=== PATIENT | male | born 1965 | race Caucasian/White ===

== ENCOUNTER 2019-12-18 10:29 | Outpatient (REF) | payer MEDICARE, MEDICAID, SELFPAY ==
--- NOTE | 2019-12-18 11:06 | XR_ITS ---
EXAMINATION: XR PELVIS CLINICAL INFORMATION: M25.559 - Pain in unspecified hip COMPARISON: CT pelvis 01/12/2017 TECHNIQUE: AP view of the pelvis. FINDINGS: There is subtle heterogeneous attenuation suspected subchondral femoral heads, superior left and superior medial right. Finding may represent underlying avascular necrosis. MRI would be helpful for further evaluation. There is no hip joint narrowing or erosive changes. The SI joints and pubis are unremarkable. The bony pelvis is unremarkable. There is some linear vascular calcification overlying the lower right lumbar spine. Bowel gas unremarkable. XR/XR pelvis 1-2V IMPRESSION: 1. Subtle heterogeneous attenuation subchondral femoral heads which could represent underlying avascular necrosis. MRI hips may be helpful for further evaluation. 2. No hip joint narrowing or erosive change.
== END 2019-12-18 10:30 | disposition home or self-care (01) ==
LOC: HO.XRAY 10:29
PROVIDERS: PCP Internal Medicine; Referring Provider Internal Medicine; Visit Provider Orthopaedic Surgery
DX: M25.552 Pain in left hip (principal)
CPT/HCPCS: 72170; 99212

== ENCOUNTER 2019-12-22 08:23 | Outpatient (REF) | payer MEDICARE, MEDICAID, SELFPAY ==
--- NOTE | 2019-12-22 | US_ITS ---
EXAMINATION: US ABDOMEN COMPLETE CLINICAL INFORMATION: Fatty liver. Elevated liver function tests. Liver fibrosis.. COMPARISON: Previous ultrasound most recent October 2018 CT the abdomen and pelvis December 2016 TECHNIQUE: Real-time imaging of the abdominal viscera. FINDINGS: PANCREAS: The head and body the pancreas are normal. The tail is not well visualized due to bowel gas. ABDOMINAL AORTA: Not well visualized due to bowel gas INFERIOR VENA CAVA: L not well visualized due to bowel gas LIVER: Liver echotexture is increased. No focal liver lesion is seen. The liver is normal in size and shape. There is no biliary duct dilatation. GALLBLADDER: Normal. The gallbladder is physiologically distended without evidence of stones, sludge, polyps, wall thickening or pericholecystic fluid. COMMON BILE DUCT: Normal in caliber measuring 0.3 cm in diameter. RIGHT KIDNEY: There is a 1.7 x 1.3 x 1.4 cm cyst in the lower pole. No hydronephrosis. No renal calculi. The kidney measures 12.5 cm in maximum dimension. LEFT KIDNEY: Normal. No hydronephrosis. No renal calculi or focal parenchymal lesions. The kidney measures 12 cm in maximum dimension. SPLEEN: Normal. The spleen measures 12.5 cm in maximum dimension. FREE FLUID: None. US/US abdomen complete IMPRESSION: Echogenic liver probably representing fatty infiltration. Small right renal cyst. Limited visualization of the tail the pancreas, aorta and IVC.
== END 2019-12-22 08:24 | disposition home or self-care (01) ==
LOC: HO.US 08:23
PROVIDERS: Visit Provider Internal Medicine
DX: K76.0 Fatty (change of) liver, not elsewhere classified (principal); R79.89 Other specified abnormal findings of blood chemistry; K74.00 Hepatic fibrosis, unspecified
CPT/HCPCS: 76700

== ENCOUNTER 2020-01-01 08:50 | Outpatient (REF) | payer MEDICARE, MEDICAID, SELFPAY ==
--- NOTE | 2020-01-01 08:52 | MR_ITS ---
EXAMINATION: MR HIP WITHOUT CONTRAST, RIGHT MR HIP WITHOUT CONTRAST, LEFT CLINICAL INFORMATION: Idiopathic aseptic necrosis. COMPARISON: CT dated 01/12/2017 TECHNIQUE: Multiplanar MR imaging was obtained through both hips without contrast material on a 1.5 Radha magnet. FINDINGS: RIGHT: LABRUM/CAPSULE: A cleft of fluid signal undercuts the anterosuperior acetabular labrum as seen on image 10/20 of series 5, most consistent with a focal tear. BONES AND ARTICULAR CARTILAGE: There is partial-thickness cartilage loss and full-thickness chondral fissuring at the acetabular roof anterosuperiorly with associated subchondral cystic change and a small marginal osteophyte. Subchondral avascular necrosis of the right femoral head anterosuperiorly measures 3.5 x 2.9 cm (transverse x AP) with a rim of low signal intensity on both T1- and T2-weighted images, a separate rim of increased T2 signal, and an internal fat signal intensity. There is mild edema signal along the margins, more notable posteriorly. As seen on image 16/24 of series 7, there is a small 0.6 x 0.7 cm fissure in the articular cartilage with chronic underlying cortical irregularity. No discrete cortical breaks. No subchondral fracture lines are identified. Focal high-grade cartilage loss is present around the fovea. Additional mild chondral thinning is present at the femoral head anterosuperiorly. MUSCLES AND TENDONS: Normal. JOINT FLUID AND BURSAE: No effusion or bursitis. LIGAMENTUM TERES: Ligamentum teres is ill-defined at the foveal attachment, likely due to a chronic tear. INTRAPELVIC SOFT TISSUES: Unremarkable. LEFT: LABRUM/CAPSULE: Similar to the contralateral side, there is a cleft of fluid signal undercutting the labrum anterosuperiorly which likely corresponds to a small focal tear. BONES AND ARTICULAR CARTILAGE: There is partial-thickness chondral thinning and full-thickness fissuring at the acetabular roof anterosuperiorly with underlying subchondral cystic change and edema. Small marginal osteophytes are present at the acetabulum. Avascular necrosis at the anterosuperior aspect of the left femoral head measures 3.5 x 3.4 cm (AP x transverse) in area with the characteristic rim of low and high signal intensity as well as central fat signal. The necrotic subchondral fragment is edematous, most pronounced posteriorly. No discrete subchondral insufficiency fractures are identified. Femoral head articular cartilage appears relatively well-preserved, though mild thinning is suspected anterosuperiorly. No discrete defects are identified. MUSCLES AND TENDONS: Normal. JOINT FLUID AND BURSAE: No effusion or bursitis. LIGAMENTUM TERES: Intact. INTRAPELVIC SOFT TISSUES: No adenopathy. No focal abnormalities. 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 No significant articular cortical collapse or subchondral fracture lines. Mild osteoarthritis in both hips. Focal, full-thickness chondral fissuring and high-grade cartilage loss are evident at the right femur along the medial teofilo-foveal margin of the infarct zone. Small degenerative anterosuperior labral tears are present bilaterally.
== END 2020-01-01 08:51 | disposition home or self-care (01) ==
LOC: HO.MRI 08:50
PROVIDERS: PCP Internal Medicine; Visit Provider Orthopaedic Surgery
DX: M25.559 Pain in unspecified hip (principal); M87.00 Idiopathic aseptic necrosis of unspecified bone
CPT/HCPCS: 73721

== ENCOUNTER → 2020-01-05 13:42 | Outpatient (BNVA) | payer MEDICARE, MEDICAID, SELFPAY | PROVIDERS: Visit Provider Internal Medicine | DX: B20 Human immunodeficiency virus [HIV] disease (principal) | CPT/HCPCS: 99212 ==

== ENCOUNTER 2020-01-07 09:02 | Outpatient (REF) | payer MEDICARE, MEDICAID, SELFPAY ==
--- NOTE | 2020-01-07 09:06 | MM_ITS ---
EXAMINATION: BONE DENSITOMETRY CLINICAL INDICATION: Human immunodeficiency virus disease. COMPARISON: Baseline BD dated 09/29/2008. TECHNIQUE: Using a MD2U DXA System (software version: 13.1) manufactured by [employer], dual-energy x-ray absorptiometry was performed of the lumbar spine and left hip. The images are of good technical quality. Summary results are attached. FINDINGS: AP SPINE L1-L4: Current: BMD 1.101 g/cm2, Z-score -0.8, T-score -1.0, normal, 5.8% increase from baseline (<5% change is not significant). Baseline: BMD 1.041 g/cm2. LEFT FEMUR, NECK: Current: BMD 1.010 g/cm2, Z-score 0.3, T-score -0.5, normal. Baseline: BMD 0.973 g/cm2. LEFT FEMUR, TOTAL: Current: BMD 1.190 g/cm2, Z-score 1.0, T-score 0.6, normal, 13.2% increase from baseline (<5% change is not significant). Baseline: BMD 1.051 g/cm2. IDENTIFIED RISK FACTORS: Secondary osteoporosis. HISTORY OF FRACTURE: None listed. MEDICATIONS: Vitamin D. MM/XR DEXA axial skeleton IMPRESSION: 1. DIAGNOSIS: Normal bone density based on the lowest T-score value of -1.0 in the lumbar spine applying World Health Organization criteria. 2. 10-YEAR FRACTURE RISK PREDICTION, FRAX: Major osteoporotic fracture (clinical spine, forearm, hip or shoulder) 3.9%. Hip fracture 0.2%. 3. Treatment Recommendations: NOF guidelines recommend consideration for treatment in postmenopausal women and men age 50 and older presenting with the following: -A hip or vertebral (clinical or morphometric) fracture. -T-score less than or equal to -2.5 at the femoral neck or spine after appropriate evaluation to exclude secondary causes. -Low bone mass at the hip or spine and a 10-year fracture probability by FRAX of greater than or equal to 3% for hip fracture or greater than or equal to 20% for major osteoporotic fracture based on the [place] adapted WHO algorithm. 4. Other Recommendations: All treatment decisions require clinical judgment and consideration of individual patient factors, including patient preferences, comorbidities, previous drug use, risk factors not captured in the FRAX model (e.g. frailty, falls, vitamin D deficiency, increased bone turnover, interval significant decline in bone density) and possible under or overestimation of fracture risk by FRAX. FUTURE SCAN RECOMMENDATION: People with diagnosed cases of osteoporosis or at high risk for fracture should have regular bone mineral density tests. For patients eligible for Medicare, routine testing is allowed once every 2 years. The testing frequency can be increased to one year for patients who have rapidly progressing disease, those who are receiving or discontinuing medical therapy to restore bone mass, or have additional risk factors.
== END 2020-01-07 09:03 | disposition home or self-care (01) ==
LOC: HO.MAMMO 09:02
PROVIDERS: PCP Internal Medicine; Visit Provider Internal Medicine
DX: Z13.820 Encounter for screening for osteoporosis (principal); B20 Human immunodeficiency virus [HIV] disease; Z79.899 Other long term (current) drug therapy
CPT/HCPCS: 36415; 77080; 82105; 85610

== ENCOUNTER 2020-01-07 10:14 | Outpatient (REF) | payer MEDICARE, MEDICAID, SELFPAY ==
[2020-01-07 14:08] LABS: Prothrombin Time 12.3 SEC (10.8-13.0)
[2020-01-08 12:26] LABS: Alpha Fetoprotein 3.9 ng/mL (<6.1)
== END 2020-01-07 10:15 | disposition home or self-care (01) ==
LOC: HO.10HDL 10:14
PROVIDERS: Visit Provider Internal Medicine
DX: K76.0 Fatty (change of) liver, not elsewhere classified (principal); R79.89 Other specified abnormal findings of blood chemistry; K74.00 Hepatic fibrosis, unspecified
CPT/HCPCS: 36415; 77080; 82105; 85610

== ENCOUNTER → 2020-02-04 11:24 | Outpatient (BNVA) | payer MEDICARE, MEDICAID, SELFPAY | PROVIDERS: PCP Internal Medicine; Referring Provider Internal Medicine; Visit Provider Orthopaedic Surgery | DX: M87.051 Idiopathic aseptic necrosis of right femur (principal); M87.052 Idiopathic aseptic necrosis of left femur | CPT/HCPCS: Q3014 ==

== ENCOUNTER 2020-04-09 11:11 | Emergency (ER) | payer MEDICARE, MEDICAID, SELFPAY ==
--- NOTE | ~2020-04-09 | XR_ITS ---
EXAMINATION: XR SHOULDER, RIGHT CLINICAL INFORMATION: Status post fall COMPARISON: None TECHNIQUE: Four views of the right shoulder. FINDINGS: There is no acute visible fracture or dislocation. Mild degenerative changes of the right glenohumeral and acromioclavicular joint with joint space narrowing and periarticular osteophyte formation. Joint spaces and alignment are otherwise maintained. Soft tissues are unremarkable. Visualized portions of the right chest are unremarkable. XR/XR shoulder RT min 2V IMPRESSION: 1. No acute visible fracture or dislocation. 2. Mild degenerative changes of the right glenohumeral and acromioclavicular joint.
[2020-04-09 11:36] VITALS: BP 134/79; PULSE 77; RESP 18; TEMP 36.8; O2SAT 97; BMI 29.0
--- NOTE | 2020-04-09 12:24 | PC.NURSE ---
strong steady gait to result's pending room. c/o right shoulder pain, loss of ROM. no numbness or pain radiating down r arm. palpable radial pulse.
--- NOTE | 2020-04-09 12:43 | ED.FALL ---
HPI - Fall General Chief Complaint: Fall Stated Complaint: fall Time Seen by Provider: 04/09/20 12:27 Source: patient Mode of arrival: ambulatory Limitations: no limitations History of Present Illness HPI Narrative: 55-year-old male presenting to the ED after a mechanical fall where he was at his mother's house cleaning up the snow and he slipped on ice landing on his right shoulder and since then has been having pain and limited range of motion. Denies head injury or loss of consciousness. Reports he does not have any back pain or any pain anywhere else. Denies being on any blood thinners. complaint: fall Onset (ago): day(s) (Yesterday) Fall from: standing Fall witnessed: no Place fall occurred: other (Mothers house) Loss of consciousness: none Prolonged down time: no Symptoms prior to fall: none Context: tripped/slipped Location of injury: other (Right shoulder) Severity: moderate Severity scale (1-10): 5 Quality: aching Associated symptoms (after fall): denies Related Data Home Medications Medication Instructions Recorded Confirmed aspirin 81 mg tablet,delayed 81 mg PO DAILY 01/05/20 01/05/20 release cholecalciferol (vitamin D3) 125 125 mcg PO TID cap 01/05/20 01/05/20 mcg (5,000 unit) capsule coenzyme Q10 100 mg capsule 100 mg PO TID cap 01/05/20 01/05/20 elviteg 150 mg-cob 150 mg-emtricit 1 tab PO DAILY 01/05/20 01/05/20 200 mg-tenofo alafenam 10 mg tablet terazosin 5 mg capsule 5 mg PO DAILY 01/05/20 01/05/20 ursodiol 300 mg capsule 300 mg PO .COMPLEX cap 01/05/20 01/05/20 valacyclovir 500 mg tablet mg PO 01/05/20 01/05/20 Previous Rx's Medication Instructions Recorded bupropion HCl 200 mg tablet,12 hr 200 mg PO QAM #90 tab 01/13/20 sustained-release terazosin 5 mg capsule 5 mg PO BEDTIME 90 Days #180 cap 01/15/20 metoprolol succinate 25 mg 25 mg PO DAILY #90 tab 01/18/20 tablet,extended release 24 hr zolpidem 10 mg tablet 10 mg PO BEDTIME PRN #90 tab 01/26/20 lidocaine [Lidoderm] 1 patch TOPICAL DAILY #15 ea 04/09/20 tramadol 50 mg PO BID PRN #14 tab 04/09/20 Allergies Allergy/AdvReac Type Severity Reaction Status Date / Time Sulfa (Sulfonamide Allergy Unknown UNKNOWN Verified 04/09/20 11:36 Antibiotics) [SULFA (SULFONAMIDE ANTIBIOTICS)] Review of Systems Review of Systems: Constitutional : No changes in activity, No lethargy, No recent prior head injury, No agitation, No increased fussiness ENT/Mouth : No Ear Pain, No Nasal discharge/drainage Eyes: No Eye Pain, No Swelling, No Redness, No Foreign Body, No Vision Changes Cardiovascular : No Chest Pain, No SOB Respiratory : No Cough Gastrointestinal : No Nausea, No Vomiting, No abdominal Pain Genitourinary : No Dysuria, No Urinary Frequency, No Urinary Incontinence, No Urgency, No Flank Pain Musculoskeletal : + joint pain, No neck stiffness, No back pain/injury Skin : No lacerations Neuro : No unsteady gait, No Paresthesias, No Loss of Consciousness, No altered mental status, No Headache Yes all other systems are reviewed and are negative [facility] Past Medical History Attestation statement: The following information was validated with the patient. Medical History Avascular necrosis Avascular necrosis of bones of both hips Hip pain HIV (human immunodeficiency virus infection) HIV (human immunodeficiency virus infection) Hypertension Surgical History H/O heart artery stent History of appendectomy Hx of tonsillectomy Family History Family History Father No problems noted. Mother No problems noted. Social History Social History Alcohol intake: never Smoking Status: Never smoker Smoked in Last 30 Days: No Use of substances other than those prescribed or required for medical reasons: No Advance Directives: No Advance Directives Information Provided: No Current occupational status: disabled Current occupation: Right Handed Physical Exam Vital Signs: Vital Signs: Last Vital Signs Temp 98.2 F 04/09/20 11:36 Pulse 77 04/09/20 11:36 Resp 18 04/09/20 11:36 BP 134/79 04/09/20 11:36 Pulse Ox 97 04/09/20 11:36 Body Mass Index 29.0 Vital signs have been reviewed as normal and appeared to be correct. Blood pressure normal. Heart rate normal. Respiration rate normal. Temperature normal. Oxygen saturation normal. Appearance: Alert. Oriented X3. No acute distress. Head: Normal external exam. Normocephalic. Atraumatic. Able to rotate head bilaterally. Eyes: PERRLA. EOMI. No nystagmus noted. Conjunctiva and sclera normal. Eyelids normal. Corneal reflex normal. ENT: EAC normal. TM's Normal. Hearing normal. Pharynx normal. Uvula midline. tongue midline. Moist mucous membranes. No trismus noted. No drooling noted. No muffled voice noted. No nystagmus noted. Neck: Normal inspection. Neck supple. FROM. No adenopathy. Trachea midline. Thyroid Normal. No meningeal signs. No neck mass noted. CVS: Normal heart rate and rhythm. Heart sound normal. No murmurs noted. Pulses normal throughout. Respiratory: No respiratory distress. Painless inspiration. Breath sounds normal. No wheezes/rales/rhonchi noted. Chest nontender. No accessory muscle usage noted or decreased air movement noted. Abdomen: Soft and nontender. Bowel sounds normal in all 4 quadrants. No distention noted. No organomegaly noted. No visible injury noted. Back: No CVA tenderness. Full range of motion noted. Nontender. No lesion/abrasions/lacerations/ecchymosis/fluctuance/signs of infection. Skin: Skin warm and dry. Normal skin color. Normal skin turgor. No rashes/lesions/lacerations noted. Extremities: Patient with tenderness to palpation to right shoulder at the AC joint and at the acromion process with limited range of motion external rotation c abduction. Otherwise the rest of the range of motion is within normal limits. No obvious deformities noted. No rashes/lesion/induration/fluctuance/ecchymosis/lacerations or signs of infection noted. Otherwise all other Extremities exhibit normal range of motion and nontender. Able to shrug shoulders bilaterally and keep up against resistance. Neuro: Oriented X 3. No motor deficit. No sensory deficit. Reflexes normal. Moving all extremities. No focal motor deficits. Cranial nerves II-XI intact bilaterally. Facial strength normal. Normal cognition. Speech normal. Gait normal. Strength 5/5 throughout. No pronator drift. No tremor noted. No fasciculations noted. No rigidity noted. Muscle tone normal throughout. Course Course Course Narrative: 55-year-old male presenting to the ED with right shoulder pain after he slipped and fell on ice. Denied head injury or loss of consciousness. On exam has limited range of motion. No obvious deformities noted. No signs of infection noted. X-ray of right shoulder negative for any acute processes. Will place in a sling and give orthopedic follow-up. Instructed patient to return if symptoms persist for longer than 1-2 weeks or to follow-up with orthopedics in 1-2 weeks. Patient understands agrees with this plan. Procedures Orthopedic Splinting/Casting Injury #1: Side: right Upper Extremity Injury Location: shoulder Upper Extremity Immobilizer: sling/shoulder immobilizer MDM - Fall Medical Records Attestation: I reviewed the patient's medical records. Imaging Data Right shoulder: Attestation: I personally reviewed and interpreted this imaging study as follows: Radiologist's impression: FINDINGS: There is no acute visible fracture or dislocation. Mild degenerative changes of the right glenohumeral and acromioclavicular joint with joint space narrowing and periarticular osteophyte formation. Joint spaces and alignment are otherwise maintained. Soft tissues are unremarkable. Visualized portions of the right chest are unremarkable. XR/XR shoulder RT min 2V IMPRESSION: 1. No acute visible fracture or dislocation. 2. Mild degenerative changes of the right glenohumeral and acromioclavicular joint. Discharge Plan Discharge Clinical Impression: Sprain of right shoulder, Fall from slipping Patient Disposition: Home, Self-Care Instructions: How to Use a Sling (ED), Shoulder Sprain (ED) Prescriptions: New tramadol 50 mg tablet 50 mg PO BID PRN (Reason: pain) Qty: 14 RF: 0 lidocaine [Lidoderm] 5 % adhesive patch,medicated 1 patch topical DAILY Qty: 15 RF: 0 No Action bupropion HCl 200 mg tablet sustained-release 12 hr 200 mg PO QAM Qty: 90 RF: 1 terazosin 5 mg capsule 5 mg PO BEDTIME 90 Days Qty: 180 RF: 2 metoprolol succinate 25 mg tablet extended release 24 hr 25 mg PO DAILY Qty: 90 RF: 1 zolpidem 10 mg tablet 10 mg PO BEDTIME PRN (Reason: insomnia) Qty: 90 RF: 0 ursodiol 300 mg capsule 300 mg PO .COMPLEX RF: 0 valacyclovir 500 mg tablet PO RF: 0 Genvoya [phone] mg tablet 1 tab PO DAILY RF: 0 terazosin 5 mg capsule 5 mg PO DAILY RF: 0 cholecalciferol (vitamin D3) 125 mcg (5,000 unit) capsule 125 mcg PO TID RF: 0 aspirin [Adult Aspirin Regimen] 81 mg tablet,delayed release (DR/EC) 81 mg PO DAILY RF: 0 coenzyme Q10 [CoQ-10] 100 mg capsule 100 mg PO TID RF: 0 Referrals: Alejandro Mast MD [Physician] - 2 weeks Print Language: Sammarinese
[2020-04-09] MEDS: traMADoL HCL 50 MG TABLET PO (13:06)
== END 2020-04-09 13:14 | disposition home or self-care (01) ==
PROVIDERS: Emergency Provider Emergency Medicine Emergency Medical Services; PCP Internal Medicine
DX: S43.401A Unspecified sprain of right shoulder joint, initial encounter (principal); W00.0XXA Fall on same level due to ice and snow, initial encounter; Y93.H1 Activity, digging, shoveling and raking; Y92.014 Private driveway to single-family (private) house as the place of occurrence of the external cause; Y99.9 Unspecified external cause status
CPT/HCPCS: 73030; 99283

== ENCOUNTER → 2020-05-09 13:09 | Outpatient (BNVA) | payer MEDICARE, MEDICAID, SELFPAY | PROVIDERS: PCP Internal Medicine; Visit Provider Orthopaedic Surgery | DX: M75.51 Bursitis of right shoulder (principal); M75.52 Bursitis of left shoulder | CPT/HCPCS: 99212; J1100 ==

== ENCOUNTER 2020-06-17 14:04 | Outpatient (REF) | payer MEDICARE, MEDICAID, SELFPAY ==
[2020-06-17 14:27] LABS: Hematocrit 49.5 % (42-52); Hemoglobin 17.3 g/dl (14.0-18.0); Mean Corpuscular HGB Conc 34.9 g/dl (31.0-36.0); Mean Corpuscular Hemoglobin 33.1 pg (27.0-33.0); Mean Corpuscular Volume 94.8 fL (80-98); Mean Platelet Volume 10.6 fL (9.4-12.4); Platelet Count 159 X10*3/uL (160-400); Red Blood Count 5.22 X10*6/uL (4.60-5.80); Red Cell Distribution Width 11.8 % (11.0-16.0); White Blood Count 6.9 X10*3/uL (4.8-10.8)
[2020-06-17 15:01] LABS: Alanine Aminotransferase 53 U/L (0-40); Albumin Level 4.4 g/dL (3.5-5.0); Alkaline Phosphatase 67 U/L (39-117); Anion Gap 14 (12-20); Aspartate Amino Transferase 41 U/L (5-37); Bilirubin Direct < 0.2 mg/dL (0.0-0.5); Bilirubin Total 0.6 mg/dL (0.0-1.0); Blood Urea Nitrogen 27 mg/dL (9-16); Calcium 9.4 mg/dL (8.4-10.2); Carbon Dioxide 27 mmol/L (22-29); Chloride 103 mmol/L (96-108); Estimated Glomerular Filt Rate 57; Glucose Random 90 mg/dL (60-115); Potassium 4.7 mmol/L (3.3-5.1); Sodium 139 mmol/L (135-145)
[2020-06-17 15:23] LABS: Syphilis Screen Nonreactive (Nonreactive)
[2020-06-20 08:03] LABS: ~Hepatitis C Antibody Nonreactive (Nonreactive)
[2020-06-20 13:17] LABS: Absolute CD3 Count 1986 cells/uL (840-3060); Absolute CD4 Count 1227 cells/uL (490-1740); Absolute CD8 Count 769 cells/uL (180-1170); Absolute Lymphocytes 2424 cells/uL (850-3900); Percent CD3 Cells 82 % (57-85); Percent CD4 Cells 51 % (30-61); Percent CD8 Cells 32 % (12-42)
[2020-06-21 12:27] LABS: HIV RNA PCR Qn Copies 32 copies/mL (NOT DETECTED); HIV RNA PCR Qn Log Copies 1.51 (NOT DETECTED)
== END 2020-06-17 14:05 | disposition home or self-care (01) ==
LOC: HO.LAB 14:04
PROVIDERS: PCP Internal Medicine; Visit Provider Internal Medicine
DX: B20 Human immunodeficiency virus [HIV] disease (principal)
CPT/HCPCS: 36415; 80048; 80076; 85027; 86359; 86360; 86780; 86803; 87536

== ENCOUNTER 2020-06-23 13:32 | Outpatient (REF) | payer MEDICARE, MEDICAID, SELFPAY ==
--- NOTE | ~2020-06-23 | MR_ITS ---
EXAMINATION: MRI SHOULDER WITHOUT CONTRAST, LEFT CLINICAL INFORMATION: Bursitis. Patient reports bilateral shoulder pain for years, fell in March with increased pain. COMPARISON: None. TECHNIQUE: MRI scanning is performed using a standard protocol on a high-field strength 1.5 Radha magnet. FINDINGS: ROTATOR CUFF: There is a delaminating-type full-thickness insertional tear of the supraspinatus tendon. The bursal side of the tendon is retracted approximately 2.4 cm. The articular side of the tendon is retracted approximately 3 cm. The tear likely extends to the anterior fibers of the infraspinatus tendon where there may be focal full-thickness involvement but this is not definitive. There is patchy tendinosis in the mid to distal subscapularis tendon. There is articular surface fraying and possible partial articular surface insertional tear measuring 1.4 cm transverse. The teres minor tendon is intact. There is trace edema/fluid in the subacromial-subdeltoid bursa. No muscle atrophy or fatty infiltration. BICEPS: Likely completely torn and retracted. CORACOACROMIAL ARCH: The undersurface of the acromion is minimally curved with a small anterior subacromial spur. There is moderate hypertrophic osteoarthritis of the acromioclavicular joint. LABRUM/CAPSULE: The superior labrum is moderately attenuated. The posterior labrum is irregular with free edge blunting, some attenuation, and a suspected tear at the base. There is osteophyte formation in the adjacent posterior glenoid. There is degenerative irregularity of the anteroinferior labrum. The capsular structures are unremarkable. GLENOHUMERAL JOINT/MARROW: There are patchy areas of [id number] cartilage thinning in the humeral head and mild cartilage thinning in the glenoid. There are small marginal osteophytes. MR/MR shoulder LT wo con IMPRESSION: 1. Delaminating-type full-thickness insertional tear of the supraspinatus tendon possibly involving the anterior fibers of the infraspinatus tendon. 2. Subscapularis tendinosis with articular surface fraying and possible partial articular surface insertional tear. 3. The long head of the biceps tendon is likely completely torn and retracted. 4. Superior labral attenuation which appears to be degenerative. Posterior labral degeneration and tear. Anteroinferior labral degeneration. 5. [id number] glenohumeral arthrosis.
--- NOTE | ~2020-06-23 | MR_ITS ---
EXAMINATION: MR SHOULDER WITHOUT CONTRAST, RIGHT CLINICAL INFORMATION: Bursitis of right shoulder. Patient reports bilateral shoulder pain for years, fell in March with increased pain. COMPARISON: XR right shoulder 04/09/2020 TECHNIQUE: MRI of the shoulder without contrast was performed on a high-field scanner. FINDINGS: ROTATOR CUFF: There is a massive complete or near-complete tear of the supraspinatus and infraspinatus tendons with retraction to the medial humeral head level. There may be a few intact anterior supraspinatus tendon fibers. There is a prominent insertional tear of the subscapularis tendon which is predominantly partial articular surface measuring 2.1 cm transverse. This may communicate with focal perforation of distal inferior subscapularis tendon fibers. There is associated dislocation of the long head of the biceps tendon from the bicipital groove which then extends through the subscapularis tendon to the intra-articular portion. The teres minor tendon is intact. There is a small subacromial-subdeltoid bursal effusion. There is mild edema at the supraspinatus and infraspinatus musculotendinous junctions which may be reactive for mild strains. No muscle atrophy or fatty infiltration. BICEPS: As stated above, the long head of the biceps tendon is medially dislocated from the bicipital groove and extends through the subscapularis tendon tear. There is irregularity of the contour of the tendon with mild intrasubstance signal abnormality consistent with tendinosis. CORACOACROMIAL ARCH: The undersurface of the acromion is curved with no subacromial spur. There is mild osteoarthritis of the acromioclavicular joint. There appears to be an inferior capsular perforation with some bursal fluid communicating with joint fluid. LABRUM/CAPSULE: The superior labrum is somewhat irregular in contour with mild intrasubstance signal abnormality which appears to be degenerative. There is a probable focal tear of the posterosuperior labrum with small adjacent paralabral cyst. There is degenerative irregularity of the anterior inferior labrum. The capsular structures are unremarkable. GLENOHUMERAL JOINT/MARROW: The humeral head is elevated and nearly abuts the acromion process. There are patchy areas of mild cartilage irregularity and thinning in the glenohumeral joint. There are small marginal osteophytes. There is a small joint effusion with mild debris or synovitis in the axillary recess. MR/MR shoulder RT wo con IMPRESSION: 1. Massive complete or near-complete tear of the supraspinatus and infraspinatus tendons with retraction to the medial humeral head level. 2. Prominent insertional tear of the subscapularis tendon which is predominantly articular-sided but appears to perforate the bursal surface distally and inferiorly. The long head of the biceps tendon is medially dislocated from the bicipital groove and extends through the subscapularis tendon tear. There is biceps tendinosis. 3. Mild osteoarthritis of the acromioclavicular joint with inferior capsular perforation. 4. Superior labral degeneration. Focal posterosuperior labral tear with small adjacent paralabral cyst. Anteroinferior labral degeneration. 5. Elevated humeral head. Mild glenohumeral arthrosis. Small joint effusion with mild debris or synovitis in the axillary recess.
== END 2020-06-23 13:33 | disposition home or self-care (01) ==
LOC: HO.MRI 13:32
PROVIDERS: Visit Provider Internal Medicine
DX: M75.51 Bursitis of right shoulder (principal); M75.52 Bursitis of left shoulder
CPT/HCPCS: 73221

== ENCOUNTER 2020-06-30 09:07 | Outpatient (REF) | payer MEDICARE, MEDICAID, SELFPAY ==
--- NOTE | ~2020-06-30 | XR_ITS ---
EXAMINATION: Single view of the right shoulder and 4 views of the left shoulder. CLINICAL INFORMATION: Pain COMPARISON: MRI of 06/23/2020 and plain film studies of 04/09/2020 and report without images 08/13/2012 . TECHNIQUE: Single AP view of the right shoulder and 4 views of the left shoulder. FINDINGS: Single view of the right shoulder does not demonstrate any evidence of acute fracture or dislocation. No widening of the acromioclavicular joint. No soft tissue swelling overlying the acromioclavicular joint. No widening of the coracoclavicular space. There is mild spurring about the glenohumeral joint without significant narrowing. 4 mm calcific density seen overlying the humeral head which may represent bone island or calcification of previous injury. There is no evidence of acute fracture or dislocation of the left shoulder. The left humeral head appears to be elevated and possibly impinging on the acromium. Small calcification about the inferior glenoid is seen which may be related to calcified labral tear. There is some degenerative narrowing of the acromioclavicular joint with mild spurring. No widening of the coracoclavicular space. No calcific tendinitis seen. XR/XR shoulder LT 1V IMPRESSION: Mild degenerative change of the right shoulder as described with question of bone island in the humeral head versus calcification extrinsic to the humeral head. Elevation of the humeral head in the glenohumeral joint which may have a component of impingement with the acromium. Mild degenerative change as described.
--- NOTE | ~2020-06-30 | XR_ITS ---
EXAMINATION: Single view of the right shoulder and 4 views of the left shoulder. CLINICAL INFORMATION: Pain COMPARISON: MRI of 06/23/2020 and plain film studies of 04/09/2020 and report without images 08/13/2012 . TECHNIQUE: Single AP view of the right shoulder and 4 views of the left shoulder. FINDINGS: Single view of the right shoulder does not demonstrate any evidence of acute fracture or dislocation. No widening of the acromioclavicular joint. No soft tissue swelling overlying the acromioclavicular joint. No widening of the coracoclavicular space. There is mild spurring about the glenohumeral joint without significant narrowing. 4 mm calcific density seen overlying the humeral head which may represent bone island or calcification of previous injury. There is no evidence of acute fracture or dislocation of the left shoulder. The left humeral head appears to be elevated and possibly impinging on the acromium. Small calcification about the inferior glenoid is seen which may be related to calcified labral tear. There is some degenerative narrowing of the acromioclavicular joint with mild spurring. No widening of the coracoclavicular space. No calcific tendinitis seen. XR/XR shoulder LT min 2V IMPRESSION: Mild degenerative change of the right shoulder as described with question of bone island in the humeral head versus calcification extrinsic to the humeral head. Elevation of the humeral head in the glenohumeral joint which may have a component of impingement with the acromium. Mild degenerative change as described.
--- NOTE | ~2020-06-30 | XR_ITS ---
EXAMINATION: Single view of the right shoulder and 4 views of the left shoulder. CLINICAL INFORMATION: Pain COMPARISON: MRI of 06/23/2020 and plain film studies of 04/09/2020 and report without images 08/13/2012 . TECHNIQUE: Single AP view of the right shoulder and 4 views of the left shoulder. FINDINGS: Single view of the right shoulder does not demonstrate any evidence of acute fracture or dislocation. No widening of the acromioclavicular joint. No soft tissue swelling overlying the acromioclavicular joint. No widening of the coracoclavicular space. There is mild spurring about the glenohumeral joint without significant narrowing. 4 mm calcific density seen overlying the humeral head which may represent bone island or calcification of previous injury. There is no evidence of acute fracture or dislocation of the left shoulder. The left humeral head appears to be elevated and possibly impinging on the acromium. Small calcification about the inferior glenoid is seen which may be related to calcified labral tear. There is some degenerative narrowing of the acromioclavicular joint with mild spurring. No widening of the coracoclavicular space. No calcific tendinitis seen. XR/XR shoulder RT 1V IMPRESSION: Mild degenerative change of the right shoulder as described with question of bone island in the humeral head versus calcification extrinsic to the humeral head. Elevation of the humeral head in the glenohumeral joint which may have a component of impingement with the acromium. Mild degenerative change as described.
== END 2020-06-30 09:08 | disposition home or self-care (01) ==
LOC: HO.HOSX 09:07
PROVIDERS: Visit Provider Orthopaedic Surgery
DX: M25.511 Pain in right shoulder (principal); M25.512 Pain in left shoulder; M12.811 Other specific arthropathies, not elsewhere classified, right shoulder; M12.812 Other specific arthropathies, not elsewhere classified, left shoulder; M75.101 Unspecified rotator cuff tear or rupture of right shoulder, not specified as traumatic; M75.102 Unspecified rotator cuff tear or rupture of left shoulder, not specified as traumatic; B20 Human immunodeficiency virus [HIV] disease; I10 Essential (primary) hypertension; Z88.2 Allergy status to sulfonamides
CPT/HCPCS: 73020; 73030; 99212

== ENCOUNTER → 2020-07-05 09:56 | Outpatient (BNVA) | payer MEDICARE, MEDICAID, SELFPAY | PROVIDERS: Visit Provider Internal Medicine | DX: Z21 Asymptomatic human immunodeficiency virus [HIV] infection status (principal) | CPT/HCPCS: 99212 ==

== ENCOUNTER → 2020-07-14 13:23 | Outpatient (BNVA) | payer MEDICARE, MEDICAID, SELFPAY | PROVIDERS: PCP Internal Medicine; Visit Provider Internal Medicine | DX: Z01.810 Encounter for preprocedural cardiovascular examination (principal); I25.10 Atherosclerotic heart disease of native coronary artery without angina pectoris; I48.0 Paroxysmal atrial fibrillation; Z79.899 Other long term (current) drug therapy | CPT/HCPCS: 93005; 99202 ==

== ENCOUNTER 2020-07-26 08:09 | Day surgery (SDC) | payer MEDICARE, MEDICAID, SELFPAY ==
[2020-07-08 13:43] VITALS: BMI 29.3
--- NOTE | 2020-07-18 14:50 | HO.ANESPROP2 ---
Documented by User: Adry Gonzalezney 07/18/20 14:55 HPI - Anesthesia Eval Consult details Narrative: 55yo M for Right Shoulder Arthroscopy,superior capsular reconstruction Cardiac cleared at low to intermediate risk afib - asa, metoprolol PMFSH Active Problems Active Problems: All Active Problems (Updated 07/14/20 @ 14:43 by Ricardo Gonzalez MD) Paroxysmal atrial fibrillation (Acute) Atherosclerotic cardiovascular disease (Acute) Preoperative cardiovascular examination (Acute) Insomnia (Acute) Medicare annual wellness visit, initial (Acute) Hypercholesterolemia (Acute) Hearing loss (Acute) Coronary artery disease (Acute) Rotator cuff tear arthropathy of both shoulders (Acute) Bilateral shoulder bursitis (Acute) Avascular necrosis of bones of both hips (Acute) HIV (human immunodeficiency virus infection) (Acute) Avascular necrosis (Acute) Hip pain (Acute) Past Medical History Medical History (Updated 07/14/20 @ 14:43 by Ricardo Gonzalez MD) Anxiety and depression Atherosclerotic cardiovascular disease Avascular necrosis Avascular necrosis of bones of both hips Bilateral shoulder bursitis COVID-19 vaccine series completed Fatty liver Hip pain HIV (human immunodeficiency virus infection) HIV (human immunodeficiency virus infection) Hypertension Paroxysmal atrial fibrillation Family History Family History Father Myocardial infarct Mother No problems noted. Brother Myocardial infarct Paternal Grandfather Myocardial infarct Maternal Grandfather Myocardial infarct Surgical History Surgical History H/O heart artery stent History of appendectomy History of elbow surgery Hx of tonsillectomy Social History Social History Alcohol intake: never Patient Tobacco Use Status: Never used Tobacco Use of substances other than those prescribed or required for medical reasons: No Have you been hit, kicked, punched, or otherwise hurt by someone within the past year? 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 Allergies Allergy/AdvReac Type Severity Reaction Status Date / Time Sulfa (Sulfonamide Allergy Unknown UNKNOWN Verified 07/14/20 13:42 Antibiotics) [SULFA (SULFONAMIDE ANTIBIOTICS)] Home Medications Medication Instructions Recorded Confirmed Last Taken Type aspirin 81 mg tablet,delayed 81 mg PO DAILY 01/05/20 07/08/20 Unknown History release coenzyme Q10 100 mg capsule 300 mg PO QAM cap 01/05/20 07/14/20 Unknown History ursodiol 300 mg capsule 900 mg PO QAM cap 01/05/20 07/14/20 Unknown History valacyclovir 500 mg tablet 500 mg PO QAM tab 06/17/20 07/14/20 Unknown History bupropion HCl 200 mg PO QPM 07/08/20 07/14/20 Unknown History cholecalciferol (vitamin D3) 125 mcg PO QPM 07/08/20 07/14/20 Unknown History metoprolol succinate 25 mg PO QPM 07/08/20 07/14/20 Unknown History terazosin 5 mg PO QAM 07/08/20 07/14/20 Unknown History ursodiol 600 mg PO QPM 07/08/20 07/14/20 Unknown History Exam Exam Date and Time: July 18, 2020 1450 Height,Weight and Vital Signs: Height 5 ft 6 in Weight 82.554 kg Pertinent Lab Results Pertinent Lab Results: Laboratory Tests 06/17/20 06/17/20 14:12 14:12 WBC 6.9 Hgb 17.3 Hct 49.5 Plt Count 159 L Sodium 139 Potassium 4.7 Chloride 103 Carbon Dioxide 27 BUN 27 H Creatinine 1.31 Narrative Narrative: Per 06/2020 cardiac note: He has a history of acute coronary syndrome in 2000, treated by right coronary artery stenting. At that time no significant disease in other coronary arteries. Last stress test is from 2018. At that time, no ischemia noted; there was fixed basal inferolateral defect, old infarct versus diaphragmatic attenuation. Prior to this, he had another stress test in 2015 which also showed no ischemia. One further stress test prior to that in 2013 also had no ischemia. With regard to EKG some EKGs in the past had shown atrial fibrillation but others had shown sinus rhythm. Last study from 2019 described to have atrial fibrillation at 52/Min. Last echocardiogram from 2019 shows LVEF of 65-70% and no significant valvular abnormalities. Overall, he has stable coronary disease and possibly persistent atrial fibrillation. EKG 06/2020 atrial fibrillation at 66/Min; cannot exclude old anterior infarct or inferior infarct. Per description from outside cardiology note, this looks similar. Assessment and Plan Assessment Anesthesia Assessment: Chart Reviewed Documented by User: Jan Palmer MD 07/26/20 09:23 [facility] Past Medical History Medical History (Updated 07/14/20 @ 14:43 by Ricardo Gonzalez MD) Anxiety and depression Atherosclerotic cardiovascular disease Avascular necrosis Avascular necrosis of bones of both hips Bilateral shoulder bursitis COVID-19 vaccine series completed Fatty liver Hip pain HIV (human immunodeficiency virus infection) HIV (human immunodeficiency virus infection) Hypertension Paroxysmal atrial fibrillation Family History Family History Father Myocardial infarct Mother No problems noted. Brother Myocardial infarct Paternal Grandfather Myocardial infarct Maternal Grandfather Myocardial infarct Surgical History Surgical History H/O heart artery stent History of appendectomy History of elbow surgery Hx of tonsillectomy Social History Social History Alcohol intake: never Patient Tobacco Use Status: Never used Tobacco Use of substances other than those prescribed or required for medical reasons: No Have you been hit, kicked, punched, or otherwise hurt by someone within the past year? 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 Allergies Allergy/AdvReac Type Severity Reaction Status Date / Time Sulfa (Sulfonamide Allergy Unknown UNKNOWN Verified 07/14/20 13:42 Antibiotics) [SULFA (SULFONAMIDE ANTIBIOTICS)] Home Medications Medication Instructions Recorded Confirmed Last Taken Type aspirin 81 mg tablet,delayed 81 mg PO DAILY 01/05/20 07/08/20 Unknown History release coenzyme Q10 100 mg capsule 300 mg PO QAM cap 01/05/20 07/14/20 Unknown History ursodiol 300 mg capsule 900 mg PO QAM cap 01/05/20 07/14/20 Unknown History valacyclovir 500 mg tablet 500 mg PO QAM tab 06/17/20 07/14/20 Unknown History bupropion HCl 200 mg PO QPM 07/08/20 07/14/20 Unknown History cholecalciferol (vitamin D3) 125 mcg PO QPM 07/08/20 07/14/20 Unknown History metoprolol succinate 25 mg PO QPM 07/08/20 07/14/20 Unknown History terazosin 5 mg PO QAM 07/08/20 07/14/20 Unknown History ursodiol 600 mg PO QPM 07/08/20 07/14/20 Unknown History Assessment and Plan Assessment Anesthesia Assessment: Anesthesia Plan Discussed and Chart Reviewed Final Anesthetic Review NPO: Yes ASA Class: III Final Preanesthetic Review: No Changes in Pt Med Stat, Meds/Allgs Chart Reviewed, Consent Obtained/Reviewed and Anes Risks/Benef Reviewed Patient Risk: High Procedure Risk: Intermediate Anesthetic Plan Anesthetic Plan: GA and Regional Block Disposition: Standard PACU
[2020-07-26] VITALS (10 sets, daily range): BP systolic 114–148; BP diastolic 68–95; PULSE 48–80; RESP 16–18; TEMP 36.2–36.9; O2SAT 91–97
[2020-07-26] MEDS: Lactated Ringers 1,000 ML 100 ML IVCONT (09:00)
--- NOTE | 2020-07-26 09:14 | PC.NURSE ---
PATIENT IS A-FIB WITH HR LOW 30'S TO 48. PATIENT WITH A HO PAROXYSYMAL A FIB. PT TAKES ONLY A BABY ASA (LAST DOSE Saturday PER PT). PATIENT ASYMPTOMATIC. ANESTHESIOLOGIST AT BEDSIDE EVALUATING PATIENT.
--- NOTE | 2020-07-26 09:50 | PC.NURSE ---
DR. VERGARA STATED OKAY FOR PATIENT TO PROCEED WITH HIS PROCEDURE.
--- NOTE | 2020-07-26 13:14 | PM.OP ---
Brief Operative Note Date of Service: 07/26/20 Pre-op diagnosis: right rotator cuff tear and rtc arthropathy Post-op diagnosis: same Procedure: superior capsular reconstruction subscapularis repair Implants: Diamond and Nephew helacoil x7 and Qfix x 2 Surgeon: Zia Guzman MD Anesthesia: GETA Was an Partner Management Consultant used for this Procedure?: Yes Partner Management Consultant: Astrid Francois Estimated blood loss (mL): 25 IV fluids (mL): 1,500 Pathology: none sent Condition: stable Disposition: PACU
--- NOTE | 2020-07-27 09:46 | P.OP_ITS ---
Operative Note Operative Note Date of Service: 07/27/20 Narrative: Pre-op diagnosis: right rotator cuff tear and rtc arthropathy Post-op diagnosis: same Procedure: superior capsular reconstruction subscapularis repair Implants: Diamond and Nephew helacoil x7 and Qfix x 2 Surgeon: Zia Guzman MD Anesthesia: GETA Was an Wastewater Treatment Supervisor used for this Procedure?: Yes Wastewater Treatment Supervisor: Astrid Francois Estimated blood loss (mL): 25 IV fluids (mL): 1,500 Pathology: none sent Condition: stable Disposition: PACU Procedure in detail: Patient is brought the operating room placed in the beach chair position and all bony prominences were well padded. He was prepped and draped in standard sterile fashion and a time-out was called to identify proper site proper procedure proper surgeon. I began by making a posterolateral stab incision placed my blunt trocar atraumatically into the glenohumeral joint. I then insufflated joint established a low anterosuperior outside in portal. I began by examining the glenohumeral joint. There was a retracted rotator cuff tear with no separation between the glenohumeral joint the subacromial space. There were minimal arthritic changes in the glenohumeral joint. There was a high grade partial tear of the subscapularis. I examined the subscapularis and it wa s mobile. I tenotomized the biceps as it was almost fully torn approximately 1 cm proximal to the labral insertion. I then used a apollo to apollo the supraspinatus insertion site and then I placed 2 mini FiberTapes and 1 looped suture through the healthy ends of the supraspinatus and then while the patient was internally rotated placed 14.5 Healacoil Diamond and Nephew anchor with the suture ends attached. This was placed in the insertion site and I had excellent reconstruction of the anatomy and stable supraspinatus repair. I then entered the subacromial space and examined the rotator cuff. It was totally retracted and there was some posterior fibers that were minimally mobile but unrepairable. Therefore I removed the frayed portions of the superior labrum and burred down the glenoid to bleeding bone. I then placed 2 all suture double loaded Diamond and Nephew suture anchors into the glenoid via a Nevasier portal. These were then left in place and I turned my attention to the medial row. Three medial row anchors were placed each double loaded and then I measured the dimensions of my graft. On the back table I cut a graft leaving 5 mm anteriorly and 10 mm posteriorly I then placed my glenoid sutures through the end of the graft and my 3 medial row FiberTapes through the appropriate location in the graft. I then removed the trocar and opened up the lateral portal with a 15 blade so that I was able to shuttle in the graft. I then tied my glenoid sutures and brought the limb of each medial row down to 2 lateral row anchors and crossed the middle fibertape in a standard fashion. I had excellent compression of the graft and these lateral row anchors were placed without difficulty. I then examined the construct and placed 1 [id number] suture posteriorly toward the glenoid and then closer to the humeral head placed another and with the 2 ends of this FiberTape placed into a 3rd knotless anchor into the posterolateral aspect of the humeral head. I had excellent compression and coverage of the head with the intact graft. I took my final pictures and removed all instrumentation. Portals were closed with nylon patient was placed into a sterile dressing and an abduction sling extubated brought to recovery room stable condition there were no known complications.
== END 2020-07-26 15:50 | disposition home or self-care (01) ==
PROVIDERS: PCP Internal Medicine; Visit Provider Orthopaedic Surgery
PROC: (CPT 29805; principal; 2020-07-26 09:50)
DX: M75.101 Unspecified rotator cuff tear or rupture of right shoulder, not specified as traumatic (principal); M75.51 Bursitis of right shoulder; M12.811 Other specific arthropathies, not elsewhere classified, right shoulder; M89.8X2 Other specified disorders of bone, upper arm; M75.52 Bursitis of left shoulder; I25.10 Atherosclerotic heart disease of native coronary artery without angina pectoris; I10 Essential (primary) hypertension; Z98.61 Coronary angioplasty status; B20 Human immunodeficiency virus [HIV] disease; M87.9 Osteonecrosis, unspecified; F32.9 Major depressive disorder, single episode, unspecified; K74.60 Unspecified cirrhosis of liver; I48.0 Paroxysmal atrial fibrillation; Z79.899 Other long term (current) drug therapy; Z88.2 Allergy status to sulfonamides
CPT/HCPCS: 29999; C1713; C1762; J0171; J0690; J1100; J1170; J2250; J2405; J3010

== ENCOUNTER → 2020-08-04 13:12 | Outpatient (BNVA) | payer MEDICARE, MEDICAID, SELFPAY | PROVIDERS: Visit Provider Physician Assistant | DX: Z98.890 Other specified postprocedural states (principal) | CPT/HCPCS: 99212 ==

== ENCOUNTER 2020-09-01 13:34 | Outpatient (REF) | payer MEDICARE, MEDICAID, SELFPAY ==
--- NOTE | 2020-09-02 08:04 | MHC.AU.ANR ---
Adult Audiological Evaluation Date of Visit: 09/01/20 Reason for Appointment: Patient has been noticing a gradual decrease in his hearing since the early . He reports that he has experienced hearing difficulty in most situations/environments. Does patient feel they have a hearing loss?: Yes If Yes, Which Ear?: Both Ears Has hearing been tested previously?: No Hearing Handicap Inventory: HHIE SCORE: 14 Based on HHIE score, patient has: Mild to moderate perceived hearing handicap Ear History: Ear Deformity: None Reported Recent Ear Drainage: None Reported Recent Ear Pain: None Reported Recent Ear Infections: None Reported Ear Infections in Childhood: None Reported History of Ear Wax Buildup: None Reported Previous Ear Surgery: None Reported Bothersome Tinnitus/Ringing/Noises in Ears: None Reported Ear used on the phone: Right Ear Blocked/Full Sensation in Ear(s): None Reported History of occupational noise exposure?: No History: History: Yes Branch: [employer] Years in : 9.5 Years Medical History: Medical History: HIV+, Heart Problems (Stent surgically placed in 2000), Shoulder Surgery on 07/26/2020 Medication List: Biktarvy, Terazosin, Ursodiol, Metoprolol, Wellbutrin, Ambien, Valtrex, CoQ10, Vitamin D Otoscopy: Right Ear: Unremarkable Left Ear: Unremarkable Tympanometry: Tympanometry performed due to: To assess integrity of the middle ear system Right Ear: Normal Middle Ear System (Type A) Left Ear: Normal Middle Ear System (Type A) Hearing Evaluation: Transducer(s) Used: Insert Earphones Method: Conventional Audiometry Stimuli Used: Pure Tones Right Ear: Description of Hearing: Normal from 250-1000 Hz, sloping to moderate/moderately-severe sensorineural hearing loss Left Ear: Description of Hearing: Normal from 250-1000 Hz, sloping to moderate/moderately-severe sensorineural hearing loss Speech Recognition Threshold (SRT): Method Used: Recorded Lists Stimuli Used: Spondee Words Right Ear: 15 dBHL Left Ear: 15 dBHL Word Discrimination: Method: Recorded Lists Word Lists Used: W-22 Right Ear: 80% at 65 dBHL Left Ear: 92% at 65 dBHL Most Comfortable Level (MCL): Right Ear: 65 dBHL Left Ear: 65 dBHL QuickSIN: Tested binaurally at 60 dBHL: 2 dB SNR loss, which suggests an average level of difficulty listening in noise Recommendations: Audiological re-evaluation in one year. Discussed the possibility of hearing aids. Patient is not certain if amplification is necessary at this time, as he has a fairly quiet lifestyle. If he would like to further discuss amplification, he is welcome to schedule a hearing aid evaluation; otherwise, we will continue to monitor his hearing and discuss amplification when he is ready. Diagnosis: Primary Diagnosis: H90.3 Bilateral Sensorineural Hearing Loss Services Performed: Services Performed: Comprehensive Audiological Evaluation (CPT 63724), Tympanometry (CPT 72267) Signature: Provider: Monica Allan, CCC-A
== END 2020-09-01 13:35 | disposition home or self-care (01) ==
LOC: HO.SH 13:34
PROVIDERS: Visit Provider Internal Medicine
DX: Z46.1 Encounter for fitting and adjustment of hearing aid (principal); H90.3 Sensorineural hearing loss, bilateral
CPT/HCPCS: 92557; 92567

== ENCOUNTER → 2020-09-09 13:15 | Outpatient (BNVA) | payer MEDICARE, MEDICAID, SELFPAY | PROVIDERS: PCP Internal Medicine; Visit Provider Physician Assistant | DX: Z98.890 Other specified postprocedural states (principal) | CPT/HCPCS: 99212 ==

== ENCOUNTER 2020-12-02 12:15 | Outpatient (REF) | payer MEDICARE, MEDICAID, SELFPAY ==
[2020-12-02 12:38] LABS: MANUAL DIFF FLAG NO
[2020-12-02 13:07] LABS: Basophils Absolute Auto 0.1 X10*3/uL (0.0-0.2); Basophils Percent Auto 0.7 % (0-2); Eosinophils Absolute Auto 0.1 X10*3/uL (0.0-0.4); Eosinophils Percent Auto 1.3 % (0-4); Hematocrit 51.5 % (42-52); Hemoglobin 17.5 g/dl (14.0-18.0); Imm Gran Abs Auto 0.02 X10*3/uL (0.00-0.03); Imm Gran Pct Auto 0.3 % (0.0-0.4); Lymphocytes Absolute Auto 1.9 X10*3/uL (1.2-4.9); Mean Corpuscular Hemoglobin 32.1 pg (27.0-33.0); Mean Corpuscular Volume 94.3 fL (80-98); Mean Platelet Volume 10.6 fL (9.4-12.4); Monocytes Absolute Auto 0.6 X10*3/uL (0.1-1.2); Monocytes Percent Auto 8.2 % (2-11); Neutrophils Absolute Auto 4.1 X10*3/uL (2.0-8.3); Neutrophils Percent Auto 61.5 % (45-73); Platelet Count 171 X10*3/uL (160-400); Red Blood Count 5.46 X10*6/uL (4.60-5.80); Red Cell Distribution Width 11.9 % (11.0-16.0); White Blood Count 6.7 X10*3/uL (4.8-10.8)
[2020-12-02 13:34] LABS: Alanine Aminotransferase 40 U/L (0-40); Albumin Level 4.7 g/dL (3.5-5.0); Alkaline Phosphatase 59 U/L (39-117); Anion Gap 12 (12-20); Aspartate Amino Transferase 31 U/L (5-37); Bilirubin Total 0.6 mg/dL (0.0-1.0); Blood Urea Nitrogen 20 mg/dL (9-16); Calcium 10.1 mg/dL (8.4-10.2); Carbon Dioxide 29 mmol/L (22-29); Chloride 102 mmol/L (96-108); Cholesterol 208 mg/dL; Estimated Glomerular Filt Rate 55; Glucose Random 87 mg/dL (60-115); HDL Cholesterol 37 mg/dL; LDL Cholesterol Calculated 129 mg/dl; Potassium 4.8 mmol/L (3.3-5.1); Sodium 138 mmol/L (135-145); Total Protein 7.2 g/dL (6.5-8.0); Triglycerides 213 mg/dL
[2020-12-02 13:35] LABS: B Type Natriuretic Peptide 63 pg/mL (<100)
[2020-12-02 14:01] LABS: Free T4 (Free Thyroxine) 1.03 ng/dL (0.71-1.85); Prostate Specific Antigen Scr 0.32 ng/mL (<0.05-4.0); Thyroid Stimulating Hormone 0.98 uIU/mL (0.32-4.0)
[2020-12-02 14:05] LABS: Folate 12.6 ng/mL (> or = 4.0); Vitamin B12 574 pg/mL (200-900)
[2020-12-02 14:37] LABS: Vitamin D 25-OH Total 154.3 ng/mL (>30)
== END 2020-12-02 12:16 | disposition home or self-care (01) ==
LOC: HO.LAB 12:15
PROVIDERS: PCP Internal Medicine; Visit Provider Internal Medicine
DX: E78.00 Pure hypercholesterolemia, unspecified (principal); Z98.890 Other specified postprocedural states
CPT/HCPCS: 36415; 80053; 80061; 82306; 82607; 82746; 83880; 84153; 84439; 84443; 85025; 99212

== ENCOUNTER → 2021-01-13 11:12 | Outpatient (BNVA) | payer MEDICARE, MEDICAID, SELFPAY | PROVIDERS: PCP Internal Medicine; Visit Provider Internal Medicine | DX: Z21 Asymptomatic human immunodeficiency virus [HIV] infection status (principal) | CPT/HCPCS: 99212 ==

== ENCOUNTER 2021-04-13 07:39 | Outpatient (REF) | payer MEDICARE, MEDICAID, SELFPAY ==
--- NOTE | ~2021-04-13 | US_ITS ---
EXAMINATION: US ABDOMEN COMPLETE CLINICAL INFORMATION: Fatty liver. Elevated LFTs. Liver fibrosis. COMPARISON: Ultrasound abdomen complete 12/22/2019 and 11/20/2018. CT abdomen and pelvis 01/12/2017. TECHNIQUE: Real-time imaging of the abdominal viscera. FINDINGS: PANCREAS: Normal. ABDOMINAL AORTA: The proximal, mid, and distal segments are normal in caliber. INFERIOR VENA CAVA: Visualized portions are normal. LIVER: The liver is normal in size. The liver contour is normal. The liver is coarse in echotexture. No focal hepatic lesion. There is no intrahepatic biliary duct dilatation seen. GALLBLADDER: Normal. The gallbladder is physiologically distended without evidence of stones, sludge, polyps, wall thickening or pericholecystic fluid. COMMON BILE DUCT: Normal in caliber measuring 0.3 cm in diameter. RIGHT KIDNEY: There is anechoic cyst lower pole measuring 1.6 x 1.5 x 1.2 cm. No hydronephrosis or renal calculi. The kidney measures 13.2 cm in maximum dimension. LEFT KIDNEY: There is anechoic cyst in midpole laterally measuring 0.7 x 0.5 x 0.6 cm. No hydronephrosis or renal calculi. The kidney measures 11.4 cm in maximum dimension. SPLEEN: There are 2 small splenule is noted measuring 0.7 x 0.7 x 0.9 cm and 0.9 x 1.1 x 1.2 cm. The spleen measures 12.9 cm in maximum dimension. FREE FLUID: None. US/US abdomen complete IMPRESSION: Coarse echogenic liver without focal lesion. Unremarkable gallbladder. Bilateral renal cysts. Two small splenules. The spleen is otherwise unremarkable.
== END 2021-04-13 07:40 | disposition home or self-care (01) ==
LOC: HO.US 07:39
PROVIDERS: PCP Internal Medicine; Visit Provider Internal Medicine
DX: K76.0 Fatty (change of) liver, not elsewhere classified (principal); R79.89 Other specified abnormal findings of blood chemistry; K74.00 Hepatic fibrosis, unspecified
CPT/HCPCS: 76700

== ENCOUNTER → 2021-04-27 12:45 | Outpatient (BNVA) | payer MEDICARE, MEDICAID, SELFPAY | PROVIDERS: PCP Internal Medicine | DX: R39.15 Urgency of urination (principal); R35.0 Frequency of micturition; I48.0 Paroxysmal atrial fibrillation; I10 Essential (primary) hypertension; B20 Human immunodeficiency virus [HIV] disease; F41.8 Other specified anxiety disorders; Z88.2 Allergy status to sulfonamides | CPT/HCPCS: 51798; 99202 ==

== ENCOUNTER → 2022-01-04 09:03 | Outpatient (BNVA) | payer MEDICARE, MEDICAID, SELFPAY | PROVIDERS: PCP Internal Medicine; Visit Provider Surgery | DX: K64.4 Residual hemorrhoidal skin tags (principal); K64.8 Other hemorrhoids | CPT/HCPCS: 46600; 99202 ==

== ENCOUNTER 2022-03-07 06:22 | Day surgery (SDC) | payer MEDICARE, MEDICAID, SELFPAY ==
--- NOTE | 2022-03-06 11:49 | P.CONAN_ITS ---
Documented by User: Adry Campos NP 03/06/22 11:55 HPI - Anesthesia Eval Consult details Narrative: 56yo M for Colonoscopy PAF, no anticoag Stable at 10/2021 cardiac office visit with 6 month routine f/u [facility] Active Problems Active Problems: All Active Problems (Updated 01/04/22 @ 09:58 by Vladimir Harding MD) Internal and external hemorrhoids without complication (Acute) COVID-19 virus infection (Acute) Urinary frequency (Acute) Otitis media (Acute) Fever (Acute) S/P right rotator cuff repair (Acute) S/P shoulder surgery (Acute) Paroxysmal atrial fibrillation (Acute) Atherosclerotic cardiovascular disease (Acute) Preoperative cardiovascular examination (Acute) Insomnia (Acute) Medicare annual wellness visit, initial (Acute) Hypercholesterolemia (Acute) Hearing loss (Acute) Coronary artery disease (Acute) Rotator cuff tear arthropathy of both shoulders (Acute) Bilateral shoulder bursitis (Acute) Avascular necrosis of bones of both hips (Acute) HIV (human immunodeficiency virus infection) (Acute) Avascular necrosis (Acute) Hip pain (Acute) Past Medical History Medical History Anxiety and depression Arrhythmia Atherosclerotic cardiovascular disease Avascular necrosis Avascular necrosis of bones of both hips Bilateral shoulder bursitis Bradyarrhythmia Bradycardia COVID-19 vaccine series completed Fatty liver FHx: atrial fibrillation Hip pain HIV (human immunodeficiency virus infection) HIV (human immunodeficiency virus infection) Hx of atrial fibrillation without current medication Hypertension Internal and external hemorrhoids without complication Myocardial infarction Paroxysmal atrial fibrillation Urinary frequency Family History Family History Father Myocardial infarct Mother No problems noted. Brother Myocardial infarct Paternal Grandfather Myocardial infarct Maternal Grandfather Myocardial infarct Surgical History Surgical History H/O heart artery stent History of appendectomy History of elbow surgery History of rotator cuff surgery Hx of colonoscopy Hx of shoulder surgery Hx of tonsillectomy Social History Social History Housing: Apartment Alcohol intake: never Patient Tobacco Use Status: Never used Tobacco e-Cigarette/Vaping Use: Never Used Second Hand Smoke Exposure: No Are you DNR?: No Advance Directives: No Advance Directives Information Provided: Yes Nutrition Risks: No Nutritional Risk Current occupational status: disabled Current occupation: Right Handed Meds Allergies Allergy/AdvReac Type Severity Reaction Status Date / Time Sulfa (Sulfonamide Allergy Unknown UNKNOWN Verified 01/04/22 09:27 Antibiotics) [SULFA (SULFONAMIDE ANTIBIOTICS)] Home Medications Medication Instructions Recorded Confirmed Last Taken Type aspirin 81 mg tablet,delayed 81 mg PO DAILY 01/05/20 03/07/22 03/06/22 History release (Adult Aspirin Regimen) coenzyme Q10 100 mg capsule 300 mg PO QAM 01/05/20 03/07/22 03/06/22 History (CoQ-10) ursodiol 300 mg capsule 900 mg PO QAM 01/05/20 03/07/22 03/06/22 History cholecalciferol (vitamin D3) 125 125 mcg PO QPM 07/08/20 03/07/22 03/06/22 Hist ory mcg (5,000 unit) capsule ursodiol 300 mg capsule 600 mg PO QPM 07/08/20 03/07/22 03/06/22 History doravirine 100 mg tablet (Pifeltro) 100 mg PO DAILY 04/27/21 03/07/22 03/06/22 History Exam Exam Date and Time: March 06, 2022 1149 Narrative Narrative: EKG 10/2021 per Cardiac Office Note afib with controlled ventricular response of 60bpm. LAD and prior inferior wall infarct. No signif changes from previous ECHO 01/2022 Nml LV chamber size. Mild LVH. Nml regional wall motion. Nml LV systolic function. LVEF 60-65%. Unhable to assess LV diastolic function d/t afib Mild dilated LA Trace to mild TR. PASP not elevated Assessment and Plan Assessment Anesthesia Assessment: Chart Reviewed Documented by User: Nenita Peter MD 03/07/22 07:20 [facility] Past Medical History Medical History Anxiety and depression Arrhythmia Atherosclerotic cardiovascular disease Avascular necrosis Avascular necrosis of bones of both hips Bilateral shoulder bursitis Bradyarrhythmia Bradycardia COVID-19 vaccine series completed Fatty liver FHx: atrial fibrillation Hip pain HIV (human immunodeficiency virus infection) HIV (human immunodeficiency virus infection) Hx of atrial fibrillation without current medication Hypertension Internal and external hemorrhoids without complication Myocardial infarction Paroxysmal atrial fibrillation Urinary frequency Functional capacity: independent ambulation Family History Family History Father Myocardial infarct Mother No problems noted. Brother Myocardial infarct Paternal Grandfather Myocardial infarct Maternal Grandfather Myocardial infarct Family history of problems with anesthesia: No Surgical History Surgical History H/O heart artery stent History of appendectomy History of elbow surgery History of rotator cuff surgery Hx of colonoscopy Hx of shoulder surgery Hx of tonsillectomy History of Problems with Anesthesia: No Social History Social History Housing: Apartment Alcohol intake: never Patient Tobacco Use Status: Never used Tobacco e-Cigarette/Vaping Use: Never Used Second Hand Smoke Exposure: No Are you DNR?: No Advance Directives: No Advance Directives Information Provided: Yes Nutrition Risks: No Nutritional Risk Current occupational status: disabled Current occupation: Right Handed Meds Allergies Allergy/AdvReac Type Severity Reaction Status Date / Time Sulfa (Sulfonamide Allergy Unknown UNKNOWN Verified 01/04/22 09:27 Antibiotics) [SULFA (SULFONAMIDE ANTIBIOTICS)] Home Medications Medication Instructions Recorded Confirmed Last Taken Type aspirin 81 mg tablet,delayed 81 mg PO DAILY 01/05/20 03/07/22 03/06/22 History release (Adult Aspirin Regimen) coenzyme Q10 100 mg capsule 300 mg PO QAM 01/05/20 03/07/22 03/06/22 History (CoQ-10) ursodiol 300 mg capsule 900 mg PO QAM 01/05/20 03/07/22 03/06/22 History cholecalciferol (vitamin D3) 125 125 mcg PO QPM 07/08/20 03/07/22 03/06/22 History mcg (5,000 unit) capsule ursodiol 300 mg capsule 600 mg PO QPM 07/08/20 03/07/22 03/06/22 History doravirine 100 mg tablet (Pifeltro) 100 mg PO DAILY 04/27/21 03/07/22 03/06/22 History Exam Airway Mallampati Class: II TM Dist: >3cm Neck ROM: Full Heart: RRR Lungs: CTA Assessment and Plan Final Anesthetic Review Family History of Problems with Anesthesia: No History of Problems with Anesthesia: No ASA Class: II Final Preanesthetic Review: No Changes in Pt Med Stat, Meds/Allgs Chart Reviewed, Consent Obtained/Reviewed and Anes Risks/Benef Reviewed Patient Risk: Low Procedure Risk: Low Anesthetic Plan Anesthetic Plan: MAC: Disposition: Standard PACU
[2022-03-07 06:00] VITALS: BMI 27.0
[2022-03-07 06:25] VITALS: BP 122/83; PULSE 57; RESP 18; TEMP 36.1; O2SAT 97
[2022-03-07] MEDS: Lactated Ringers 1,000 ML 100 ML IVCONT (06:59)
--- NOTE | 2022-03-07 07:27 | PC.NURSE ---
PT STS NORMALLY PULSE LOW. LOW 30S AND 40S
[2022-03-07 08:32] VITALS: BP 105/71; PULSE 65; RESP 16; TEMP 36.8; O2SAT 93
--- NOTE | 2022-03-07 08:33 | PM.OP ---
Brief Operative Note Date of Service: 03/07/22 Pre-op diagnosis: Screening Post-op diagnosis: other (Mild diverticulsois, small internal hemorrhoids) Procedure: Colonoscopy to the cecum Surgeon: Peterson Couch Anesthesia: MAC Was an Maintenance Worker House Trailer used for this Procedure?: No Estimated blood loss (mL): 0 Pathology: none sent Condition: stable Disposition: PACU
[2022-03-07 08:47] VITALS: BP 120/80; PULSE 65; RESP 16; TEMP 36.6; O2SAT 98
--- NOTE | 2022-03-07 08:55 | OP_ITS ---
SURGEON: Peterson Couch MD INDICATIONS: The patient presents for evaluation of personal history of tubular adenoma of the colon and colorectal cancer screening. Full consent has been obtained from him for this, including risks of bleeding and perforation. PREOPERATIVE DIAGNOSIS: Colorectal cancer screening. POSTOPERATIVE DIAGNOSIS: PROCEDURE PERFORMED: Colonoscopy to the cecum. ESTIMATED BLOOD LOSS: COMPLICATIONS: ANESTHESIA: Monitored anesthesia care. ASSISTANTS: SPECIMENS: POSTOPERATIVE DIAGNOSES: Colorectal cancer screening, sigmoid diverticulosis, small internal hemorrhoids. DESCRIPTION OF PROCEDURE: The patient was placed in the left lateral decubitus position. The digital rectal exam revealed no abnormalities. There was no evidence of any significant hemorrhoids nor other perianal disease. The Olympus video pediatric colonoscope was entered into the rectum and advanced easily to the cecum. Once in the cecum, I did identify a normal-appearing cecal pouch with appendiceal orifice and a normal-appearing ileocecal valve. The entire cecum and ileocecal valve appeared normal. The scope was then slowly withdrawn assessing all mucosal surfaces carefully. Preparation was excellent. I did not visualize any sign of polyps, colitis, nor angiodysplasia. There was a mild amount of sigmoid diverticulosis. In the rectum, scope was retroflexed visualizing some small internal hemorrhoids, but no other pathology. The rectal mucosa appeared normal. The scope was straightened and withdrawn from the patient. He tolerated the procedure well and was returned to the recovery area in stable condition. IMPRESSION: 1. Small internal hemorrhoids. 2. Mild sigmoid diverticulosis. PLAN: I would recommend a repeat colonoscopy in 5 years for further screening. He will see me in the Fall for a followup of his underlying fatty liver. He was advised to resume his aspirin today. He will otherwise see me on a p.r.n. basis. MD NATALIA Peralta/KAIDEN / [phone] KARLA
--- NOTE | 2022-03-07 09:19 | HO.POSTANES ---
Post Anesthesia Evaluation Post Anesthesia Evaluation Vital Signs: Vital Signs Temp Pulse Resp BP Pulse Ox O2 Del Method O2 Flow Rate 03/07/22 08:32 98.3 F 65 16 105/71 93 Room Air, Nasal Cannula 4 03/07/22 06:25 96.9 F 57 18 122/83 97 Room Air Anesthesia: Monitored Mental Status: Awake Nausea/Vomiting: None Hydration: Adequate Anesthesia-Related Issues: No Anes. Related Issues
== END 2022-03-07 09:25 | disposition home or self-care (01) ==
PROVIDERS: PCP Internal Medicine; Visit Provider Internal Medicine
PROC: 0DJD8ZZ Inspection of Lower Intestinal Tract, Via Natural or Artificial Opening Endoscopic (ICD-10-PCS; CPT 45378; principal; 2022-03-07 07:30)
DX: Z12.11 Encounter for screening for malignant neoplasm of colon (principal); Z86.010 Personal history of colon polyps; K57.30 Diverticulosis of large intestine without perforation or abscess without bleeding; K64.8 Other hemorrhoids; K76.0 Fatty (change of) liver, not elsewhere classified; K74.00 Hepatic fibrosis, unspecified; B20 Human immunodeficiency virus [HIV] disease; I48.91 Unspecified atrial fibrillation; I25.10 Atherosclerotic heart disease of native coronary artery without angina pectoris; I25.2 Old myocardial infarction; Z98.61 Coronary angioplasty status; Z79.82 Long term (current) use of aspirin; Z79.899 Other long term (current) drug therapy
CPT/HCPCS: G0105

== ENCOUNTER → 2022-04-30 13:10 | Outpatient (BNVA) | payer MEDICARE, MEDICAID, SELFPAY | PROVIDERS: PCP Internal Medicine; Visit Provider Nurse Practitioner Family | DX: R35.0 Frequency of micturition (principal); R39.15 Urgency of urination | CPT/HCPCS: 51798; 99212 ==

== ENCOUNTER → 2022-05-17 14:00 | Outpatient (BNVA) | payer MEDICARE, MEDICAID, SELFPAY | PROVIDERS: PCP Internal Medicine; Visit Provider Orthopaedic Surgery | DX: M75.102 Unspecified rotator cuff tear or rupture of left shoulder, not specified as traumatic (principal); M12.812 Other specific arthropathies, not elsewhere classified, left shoulder; Z21 Asymptomatic human immunodeficiency virus [HIV] infection status | CPT/HCPCS: 99212 ==

== ENCOUNTER 2022-05-24 14:48 | Outpatient (REF) | payer MEDICARE, MEDICAID, SELFPAY ==
--- NOTE | ~2022-05-24 | XR_ITS ---
EXAMINATION: XR PELVIS CLINICAL INFORMATION: Pain in unspecified hip COMPARISON: Pelvis radiograph 12/18/2019, MRI bilateral hips 01/01/2020 TECHNIQUE: AP view of the pelvis. FINDINGS: The previously seen subtle lytic/sclerotic areas in the superior femoral heads is slightly more apparent on today's study but essentially unchanged. No collapse of the cortex is seen. No acute fractures. The pelvis otherwise appears normal. XR/XR pelvis 1-2V IMPRESSION: Subtle changes in the superior femoral heads as described above. Findings are consistent with bilateral chronic avascular necrosis without meaningful interval change when compared to the prior study.
== END 2022-05-24 14:49 | disposition home or self-care (01) ==
LOC: HO.HOSX 14:48
PROVIDERS: Visit Provider Orthopaedic Surgery
DX: M70.62 Trochanteric bursitis, left hip (principal)
CPT/HCPCS: 20610; 72170; 99212; J1100

== ENCOUNTER 2023-02-05 08:24 | Outpatient (REF) | payer MEDICARE, MEDICAID, SELFPAY ==
[2023-02-05 08:53] LABS: MANUAL DIFF FLAG NO
[2023-02-05 09:20] LABS: Basophils Absolute Auto 0.1 X10*3/uL (0.0-0.2); Basophils Percent Auto 0.9 % (0-2); Eosinophils Absolute Auto 0.1 X10*3/uL (0.0-0.4); Eosinophils Percent Auto 2.1 % (0-4); Hemoglobin 18.9 g/dl (14.0-18.0); Imm Gran Abs Auto 0.05 X10*3/uL (0.00-0.03); Imm Gran Pct Auto 0.8 % (0.0-0.4); Lymphocytes Absolute Auto 2.4 X10*3/uL (1.2-4.9); Lymphocytes Percent Auto 36.4 % (20-40); Mean Corpuscular HGB Conc 33.5 g/dl (31.0-36.0); Mean Corpuscular Hemoglobin 32.4 pg (27.0-33.0); Mean Corpuscular Volume 96.6 fL (80.0-98.0); Mean Platelet Volume 11.1 fL (9.4-12.4); Monocytes Absolute Auto 0.7 X10*3/uL (0.1-1.2); Monocytes Percent Auto 10.2 % (2-11); Neutrophils Absolute Auto 3.3 x10*3/uL (2.0-8.3); Neutrophils Percent Auto 49.6 % (45-73); Platelet Count 162 X10*3/uL (160-400); Red Blood Count 5.84 X10*6/uL (4.60-5.80); Red Cell Distribution Width 12.1 % (11.0-16.0); White Blood Count 6.6 X10*3/uL (4.8-10.8)
[2023-02-05 09:21] LABS: Hematocrit 56.4 % (42.0-52.0)
[2023-02-05 09:25] LABS: Prothrombin Time 12.2 SEC (11.1-13.3)
[2023-02-05 09:37] LABS: Alanine Aminotransferase 38 U/L (0-40); Albumin Level 4.5 g/dL (3.5-5.0); Alkaline Phosphatase 46 U/L (39-117); Aspartate Amino Transferase 33 U/L (5-37); Bilirubin Direct 0.2 mg/dL (0.0-0.5); Bilirubin Total 0.7 mg/dL (0.0-1.0); Total Protein 7.4 g/dL (6.5-8.0)
[2023-02-06 11:29] LABS: Alpha Fetoprotein 4.8 ng/mL (<6.1)
[2023-02-14 19:09] LABS: FIB-ALT 33 U/L (9-46); FIB-Alpha-2-Macroglobulin 302 mg/dL (106-279); FIB-Apolipoprotein A1 143 mg/dL (94-176); FIB-GGT 22 U/L (3-85); FIB-Haptoglobin 42 mg/dL (43-212); FIB-Total Bilirubin 0.7 mg/dL (0.2-1.2); Liver Fibrosis Score 0.64; Liver Fibrosis Stage F3; Nec Inflam Act Grade A0-A1; Nec Inflam Act Score 0.25
== END 2023-02-05 08:25 | disposition home or self-care (01) ==
LOC: HO.LAB 08:24
PROVIDERS: PCP Internal Medicine; Visit Provider Internal Medicine
DX: K76.0 Fatty (change of) liver, not elsewhere classified (principal); K74.00 Hepatic fibrosis, unspecified
CPT/HCPCS: 36415; 80076; 81596; 82105; 85025; 85610

== ENCOUNTER 2023-05-01 09:13 | Outpatient (AMB) | payer MEDICARE, MEDICAID, SELFPAY ==
--- NOTE | 2023-05-01 09:36 | MHC.OFFVIS ---
Intake Intake Visit Reasons: 1y/PVR Intake Note: Patient is present for follow up frequency and urgency Urology Medications: terazosin Blood Thinner: aspirin PVR: 79ml's Supply Cataloguer Required: No Accompanied by: Self / Same As Patient Allergies Sulfa (Sulfonamide Antibiotics) [SULFA (SULFONAMIDE ANTIBIOTICS)] Allergy (Unknown, Verified 05/01/23 11:09) UNKNOWN Medication List - Last Reconciled 05/01/23 by BRITTNI Medina- aspirin (Adult Aspirin Regimen) 81 mg PO DAILY somfiazhl-lflitmjw-furqwzv ala 50-200-25 mg (Biktarvy) 1 tab PO DAILY bupropion HCl 200 mg PO QPM 90 days cholecalciferol (vitamin D3) 125 mcg PO QPM coenzyme Q10 (CoQ-10) 300 mg PO QAM doravirine (Pifeltro) 100 mg PO DAILY isosorbide mononitrate ER 30 mg PO DAILY metoprolol succinate ER 12.5 mg (1/2 x 25 mg) PO DAILY 90 days pitavastatin calcium 4 mg PO DAILY terazosin 5 mg PO BEDTIME 90 days ursodiol 600 mg PO QPM ursodiol 900 mg PO QAM valacyclovir 500 mg PO BID 90 days zolpidem 10 mg PO BEDTIME 90 days HPI HPI Comments History of Present Illness Details Kip is a pleasant 58-year-old male patient of Dr. Ellison. He has a past medical history of AFib, myocardial infarction, bradyarrhythmia, hemorrhoids, fatty liver, atherosclerotic cardiovascular disease, anxiety, depression, bilateral shoulder bursitis, HIV, avascular necrosis, and hypertension. He presents to the office today for follow-up of his overactive bladder. When asked patient reports to be doing and feeling well. When asked he reports terazosin 5 mg at bedtime to be working extremely well for his urinary frequency and urgency symptoms. In office urinalysis today within normal limits. PVR 79 mLs. When asked patient denies urinary urgency, urinary frequency, incontinence, dysuria, foul-smelling urine, change in urinary stream, hematuria, flank pain, fever and or chills. Patient denies any urological issues or concerns at this time. He denies changes to his urinary habits. He offers no concerns or complaints. PSAs are as follows: 11/14 0.3, 09/16 0.5. Patient reports he gets his PSA drawn with his PCP as well as with his HIV provider through [facility]. He otherwise offers no other issues or concerns at this time. [facility] Medical History Hx of atrial fibrillation without current medication FHx: atrial fibrillation Arrhythmia Myocardial infarction Bradycardia Bradyarrhythmia Internal and external hemorrhoids without complication Urinary frequency Paroxysmal atrial fibrillation Atherosclerotic cardiovascular disease Fatty liver Anxiety and depression COVID-19 vaccine series completed Bilateral shoulder bursitis Avascular necrosis of bones of both hips HIV (human immunodeficiency virus infection) Avascular necrosis Hip pain Hypertension HIV (human immunodeficiency virus infection) Surgical History Hx of colonoscopy Hx of shoulder surgery History of rotator cuff surgery History of elbow surgery H/O heart artery stent Hx of tonsillectomy History of appendectomy Family History Father Myocardial infarct Mother Skin cancer Brother Myocardial infarct Paternal Grandfather Myocardial infarct Maternal Grandfather Myocardial infarct Social History Housing: Apartment Alcohol intake: never Patient Tobacco Use Status: Never used Tobacco e-Cigarette/Vaping Use: Never Used Second Hand Smoke Exposure: No Current occupational status: disabled Current occupation: Right Handed Cognitive needs: No Hearing needs: No Vision needs: No Review of Systems Const All systems reviewed & are unremarkable except as noted in HPI and below Reports no additional complaints Eyes Reports no additional complaints ENT Reports no additional complaints Card Reports no additional complaints Resp Reports no additional complaints GI Details: Patient reports follows with GI Dr. Couch. Reports as per HPI Musc Reports no additional complaints Neuro Reports no additional complaints Psych Reports no additional complaints Endo Reports no additional complaints Alex/Lymph Reports no additional complaints Aller/Immun Reports no additional complaints Physical Exam Const General: cooperative, healthy appearing, comfortable, no acute distress, well developed, alert and awake Orientation/consciousness: patient oriented x3 Limitations: no limitations HEENT Head: Yes normal to inspection, Yes normocephalic and Yes atraumatic Ears: hearing grossly normal bilaterally Eyes General: appearance normal, both eyes and all related structures Neck Neck: Yes normal visual inspection and Yes trachea midline Chest Chest palpation & inspection: normal inspection of the chest Resp Effort & Inspection: normal respiratory effort and able to speak in complete sentences Cardio Rate: regular rate GI Inspection: Yes normal to inspection Rectal Exam - Male: Yes deferred General: Yes no CVA tenderness Back/Spine/Pelvis Back: no CVA tenderness Skin General skin exam: no rashes or lesions noted Neuro General: patient oriented x3 Extrem General: Yes normal to inspection Psych Appearance: grossly normal and well kempt Mental Status: mental status grossly normal Speech and movement: Normal speech and movement present and Clear speech present Affect: normal affect Attitude: cooperative Thought process: Normal thought process present Thought content: Normal thought content present Insight: Good insight present (Psych) Judgement: Good judgement present (Psych) Office Procedures Post Void Residual Post Residual Void Post Void Residual (PVR): 79 [id number] Void Residual by ultrasound Results AMB Urinalysis, Automated UA Leukoctes 0 Андрей/uL Last Edit by [employer] on 05/01/23 10:08 UA Nitrite Negative Last Edit by [employer] on 05/01/23 10:08 UA Urobilinogen 0.2 mg/dL Last Edit by [employer] on 05/01/23 10:08 UA Protein 0 mg/dL Last Edit by [employer] on 05/01/23 10:08 UA pH 6.0 Last Edit by [employer] on 05/01/23 10:08 UA Blood 0 Edilberto/uL Last Edit by [employer] on 05/01/23 10:08 UA Specific [place] 1.005 Last Edit by [employer] on 05/01/23 10:08 UA Ketone Negative Last Edit by [employer] on 05/01/23 10:08 UA Bilirubin 0 mg/dL Last Edit by [employer] on 05/01/23 10:08 UA Glucose 0 mg/dL Last Edit by [employer] on 05/01/23 10:08 Results Reviewed Results Reviewed: Laboratory Last Values Urine pH (Auto) 6.0 05/01/23 09:41 Specific [place] (Auto) 1.005 05/01/23 09:41 Urine Protein (Auto) 0 mg/dL 05/01/23 09:41 Glucose (UA)(Auto) 0 mg/dL 05/01/23 09:41 Urine Ketones (Auto) Negative 05/01/23 09:41 Urine Blood (Auto) 0 Edilberto/uL 05/01/23 09:41 Urine Nitrite (Auto) Negative 05/01/23 09:41 Urine Bilirubin (Auto) 0 mg/dL 05/01/23 09:41 Urine Urobilinogen (Auto) 0.2 mg/dL 05/01/23 09:41 Leukocyte Esterase (Auto) 0 Андрей/uL 05/01/23 09:41 Assessment & Plan Assessment & Plan (1) BPH (benign prostatic hyperplasia): Code(s): N40.0 - Benign prostatic hyperplasia without lower urinary tract symptoms (2) Urinary frequency: Code(s): R35.0 - Frequency of micturition (3) Urinary urgency: Code(s): R39.15 - Urgency of urination Plan In office urinalysis results reviewed with the patient today; as noted above. PVR 0 mL. Patient denies any bothersome urinary issues or concerns. He is happy with his current voiding parameters. Most recent PSA results reviewed with the patient today; as noted above. Continue terazosin 5 mg daily; refill provided. PSA in one year. Follow-up in 1 year with PSA to be completed prior; or sooner with any issues, concerns, and or questions. Orders: Orders AMB Urinalysis Automated Today Z13.9 - Encounter for screening, unspecified AMB Post Void Residual by ultrasound Today R39.15 - Urgency of urination Prostate Specific Antigen Today N40.0 - Benign prostatic hyperplasia without lower urinary tract symptoms Medications: Refilled terazosin 5 mg PO BEDTIME 90 caps 3RF 90 days Patient Instructions: The patient had an opportunity to ask questions regarding the treatment plan. All questions were answered. Physical exam, labs, and imaging were discussed and reviewed in detail. As well as risks, benefits, and discussion of treatment choices. No major barriers to understanding were identified. The patient expressed understanding and agreement with the above treatment plan. The patient was made aware they should contact our office by phone for worsening of their current condition, the appearance of new symptoms, or with any questions or concerns. Compliance is encouraged with any medications and follow up testing that is ordered. It is a privilege to be allowed the opportunity to participate in? your urological care.? Again, if you have any questions or concerns If you have any questions or concerns please do not hesitate to contact me. The office is [phone]. This note is constructed using voice recognition software. While every effort has been made to ensure accuracy knitter mechanic errors may have been included. Yours sincerely, BRITTNI Medina-ANNE-MARIE Coding Level of Care Code Est Pt Level 3 (96834) Diagnoses BPH (benign prostatic hyperplasia) N40.0 Urinary frequency R35.0 Urinary urgency R39.15 CPT Codes Post Residual Void - PVR CPT Code: 04114-Qdwr Void Residual by ultrasound ([id number])
== END 2023-05-01 10:36 | disposition home or self-care (01) ==
PROVIDERS: Visit Provider Nurse Practitioner Family
DX: N40.0 Benign prostatic hyperplasia without lower urinary tract symptoms (principal); R35.0 Frequency of micturition; R39.15 Urgency of urination
CPT/HCPCS: 99213

== ENCOUNTER → 2023-05-01 09:13 | Outpatient (BNVA) | payer MEDICARE, MEDICAID, SELFPAY | PROVIDERS: Visit Provider Nurse Practitioner Family | DX: N40.1 Benign prostatic hyperplasia with lower urinary tract symptoms (principal); R35.0 Frequency of micturition; R39.15 Urgency of urination | CPT/HCPCS: 51798; 81003; 99212 ==

== ENCOUNTER 2023-05-08 07:44 | Outpatient (REF) | payer MEDICARE, MEDICAID, SELFPAY ==
--- NOTE | ~2023-05-08 | US_ITS ---
EXAMINATION: US COMPLETE ABDOMEN WITH LIVER ELASTOGRAPHY CLINICAL INFORMATION: Fatty liver. Liver fibrosis. COMPARISON: Ultrasound imaging from 12/22/2019 and 04/13/2021. TECHNIQUE: Real-time imaging of the abdominal viscera. Noninvasive ultrasound liver fibrosis assessment is performed using [employer]idelia ElastPQ point quantification shear wave elastography (2D-SWE) with a C5-2 MHz transducer. Multiple elastography samples are obtained. FINDINGS: PANCREAS: Normal. ABDOMINAL AORTA: The proximal, middle, and distal aortic segments are normal in caliber. INFERIOR VENA CAVA: Visualized portions are normal. LIVER: Liver has normal size and contour. The parenchyma is hyperechoic and mildly heterogeneous, which suggests regions of relative fat sparing. No evidence of focal lesion or intrahepatic ductal dilatation. The right lobe measures approximately 13.5 cm in length. The left lobe measures 10.8 cm in length. Portal flow is normal. Shear wave liver elastography median stiffness is 1.61 m/s (reference: normal median stiffness is 1.3 m/s or less). IQR/median stiffness to assess sampling precision is 0.11 (reference: good quality data set is IQR/median stiffness of 0.15 or less). GALLBLADDER: Normal. The gallbladder is physiologically distended without evidence of stones, sludge, polyps, wall thickening or pericholecystic fluid. COMMON BILE DUCT: Normal in caliber measuring 0.5 cm in diameter. RIGHT KIDNEY: The kidney measures 11.6 cm in length. No nephrolithiasis or hydronephrosis. 2.1 cm simple cyst of the lower pole. No imaging follow-up is recommended for a simple cyst. LEFT KIDNEY: 11.3 cm in length. No nephrolithiasis or hydronephrosis. A few small simple cysts are detected. No renal imaging follow-up is recommended for simple cysts. SPLEEN: Normal. The spleen measures 11.4 cm in maximum dimension. FREE FLUID: None. US/US abdomen comp w elastography IMPRESSION: * Liver is hyperechoic, as seen on prior ultrasound imaging exams, and findings are suggestive of steatosis. There is no evidence of liver mass. * The shear wave liver elastography reveals a median stiffness of 1.61 m/s (reference: normal median stiffness is 1.3 m/s or less). In the absence of other known clinical signs, this rules out compensated advanced chronic liver disease. REFERENCE: Society of Radiologists in Ultrasound Liver Stiffness Thresholds (2020): LIVER STIFFNESS THRESHOLDS: *Liver Stiffness equal or less than 1.3 m/s: High probability of being normal. *Liver Stiffness less than 1.7 m/s: In the absence of other known clinical signs, rules out compensated advanced chronic liver disease. *Liver Stiffness 1.7-2.1 m/s: Suggestive of compensated advanced chronic liver disease but need further test for confirmation. *Liver Stiffness over 2.1 m/s: Rules in compensated advanced chronic liver disease. *Liver Stiffness over 2.4 m/s: Suggestive of clinically significant portal hypertension. QUALITY OF DATA SET: *IQR/Median value equal or less than 0.15 implies a quality data set. *IQR/Median value over 0.15 implies a poor quality data set. OTHER CONSIDERATIONS: The stage of liver fibrosis may be overestimated in the setting of acute hepatitis, liver inflammation, elevated liver function tests, hepatic vascular congestion, obstructive cholestasis, non-fasting state, and infiltrative diseases such as amyloidosis and lymphoma. In some patients with NAFLD, the liver stiffness thresholds for compensated advanced chronic liver disease may be lower. In causes other than viral hepatitis and NAFLD, liver stiffness thresholds are not well established.
== END 2023-05-08 07:45 | disposition home or self-care (01) ==
LOC: HO.US 07:44
PROVIDERS: PCP Internal Medicine; Visit Provider Internal Medicine
DX: K76.0 Fatty (change of) liver, not elsewhere classified (principal); K74.00 Hepatic fibrosis, unspecified
CPT/HCPCS: 76700; 76981

== ENCOUNTER 2023-08-22 09:58 | Outpatient (AMB) | payer MEDICARE, MEDICAID, SELFPAY ==
[2023-08-22 10:21] VITALS: BP 108/72; PULSE 77; O2SAT 98; BMI 27.4
--- NOTE | 2023-08-22 10:21 | A.OFFPC_ITS ---
Vital Signs 08/22/23 10:21 Height 5 ft 7.5 in Weight 177 lb 7.554 oz BMI 27.4 BP 108/72 Blood Pressure Location Lt brachial Position Sitting Pulse 77 Pulse Source Pulse Oximeter Pulse Oximetry (%) 98 Oxygen Delivery Method Room Air Intake Visit Reasons: Annual Exam Intake Note: Patient is here today for a physical. Custom Ski Maker Required: No Allergies Sulfa (Sulfonamide Antibiotics) [SULFA (SULFONAMIDE ANTIBIOTICS)] Allergy (Unknown, Verified 08/22/23 10:21) UNKNOWN pitavastatin Adverse Reaction (Intermediate, Unverified 08/22/23 11:09) Chest Pain Medication List - Last Reconciled 08/22/23 by Chasity Ellison MD aspirin (Adult Aspirin Regimen) 81 mg PO DAILY awoaaizdp-nrzjkyms-wxhexqi ala 50-200-25 mg (Biktarvy) 1 tab PO DAILY bupropion HCl SR 200 mg PO QPM 90 days cholecalciferol (vitamin D3) 125 mcg PO QPM coenzyme Q10 (CoQ-10) 300 mg PO QAM doravirine (Pifeltro) 100 mg PO DAILY isosorbide mononitrate ER 30 mg PO DAILY metoprolol succinate ER 12.5 mg (1/2 x 25 mg) PO DAILY 90 days nitroglycerin mg sublingual terazosin 5 mg PO BEDTIME 90 days ursodiol 600 mg PO QPM ursodiol 900 mg PO QAM valacyclovir 500 mg PO BID 90 days zolpidem 10 mg PO BEDTIME 90 days Tobacco use date assessed: 08/22/23 Dental Screening Dental Screen Date: 08/22/23 Did you have a dental visit in the last 12 months?: Yes Did you have a dental problem in the last 6 months where you did not have access to dental care?: No Was dental information given to patient?: Patient has dentist HPI Annual Exam HPI Details 58-year-old overweight male with a histo ry of HIV having coronary artery disease hypercholesterolemia atrial fibrillation last seen in 08/14/2022. Patient is here for physical exam colonoscopy done in 03/16/2022. Patient had an ultrasound of the liver under gastroenterology for the liver fibrosis suggesting hepatic steatosis median stiffness. Patient also follows up with urology regarding frequency and urgency on terazosin diagnosis of overactive bladder. Patient had an echocardiogram done 03/21/2023 revealing normal left ventricular size ejection fraction 55-60% mild dilatation of the right ventricle moderate left atrial enlargement no significant valve disease.. Patient did see Cardiology 02/13/2023. With the patient having dull intermittent chest pains advised an exercise nuclear stress test. Results showing positive exercise nuclear stress test with perfusion imaging medium in size moderate intensity mostly reversible perfusion inferior wall Started on isosorbide mononitrate 30 mg once a day concern on statins also for cholesterol advised to be on it. As for the atrial fibrillation had a Holter done showing 70 3 times pauses greater than 3 seconds but mostly during sleep hours low chads Vasc score no need for anticoagulation except for aspirin patient was advised sleep study but patient declined for the moment. Cardiac cath done negative. 01/2023. decline sleep study. has been placed on pivastatin but cannot tolerate. PVR - patient blames onf testing. decline rectal and hernia exam [facility] Medical History (Reviewed 05/01/23 @ 11:20 by Vale Villalobos [facility]) Hx of atrial fibrillation without current medication FHx: atrial fibrillation Arrhythmia Myocardial infarction Bradycardia Bradyarrhythmia Internal and external hemorrhoids without complication Urinary frequency Paroxysmal atrial fibrillation Atherosclerotic cardiovascular disease Fatty liver Anxiety and depression COVID-19 vaccine series completed Bilateral shoulder bursitis Avascular necrosis of bones of both hips HIV (human immunodeficiency virus infection) Avascular necrosis Hip pain Hypertension HIV (human immunodeficiency virus infection) Surgical History Hx of colonoscopy Hx of shoulder surgery History of rotator cuff surgery History of elbow surgery H/O heart artery stent Hx of tonsillectomy History of appendectomy Family History Father Myocardial infarct Mother Skin cancer Brother Myocardial infarct Paternal Grandfather Myocardial infarct Maternal Grandfather Myocardial infarct Social History (Updated 08/22/23 @ 11:13 by Chasity Ellison MD) Housing: Apartment Alcohol intake: never Patient Tobacco Use Status: Never used Tobacco Years Smoked: marijuana smoking e-Cigarette/Vaping Use: Never Used Second Hand Smoke Exposure: No Current occupational status: disabled Current occupation: Right Handed Cognitive needs: No Hearing needs: No Vision needs: No Questionnaire PHQ-9 Over the last 2 weeks, how often have you been bothered by any of the following problems? 1. Little interest or pleasure in doing things: not at all 2. Feeling down, depressed, or hopeless: not at all 3. Trouble falling or staying asleep, or sleeping too much: not at all 4. Feeling tired or having little energy: not at all 5. Poor appetite or overeating: not at all 6. Feeling bad about yourself - or that you are a failure or have let yourself or your family down: not at all 7. Trouble concentrating on things, such as reading the newspaper or watching television: not at all 8. Moving or speaking so slowly that other people could have noticed. Or the opposite - being so fidgety or restless that you have been moving around a lot more than usual: not at all 9. Thoughts that you would be better off or of hurting yourself in some way: not at all Total score: 0 Depression Screening Interpretation: Negative Depression Screening Done: Yes 89238 - PHQ-9 Billing: Yes Source: Developed by Drs. Peterson Lockhart, Kristen Alfred, Star Lucas and colleagues, with an educational lisa from [employer]. Thrive Questionnaire Date Thrive assessed: 08/22/23 I am a: Patient What is your living situation today?: I have a steady place to live Within the past 12 months, did the food you bought not last and you didn't have the money to get more?: Never true Within the past 12 months, did you worry whether your food would run out before you got money to buy more?: Never true Do you have trouble paying for medicines?: No Do you have trouble getting transportation to medical appointments?: No Do you have trouble paying your heating and electricity bill?: No Do you have trouble taking care of your child, family member or friend?: No Do you have trouble with day-to-day activities such as bathing, preparing meals, shopping, managing finances, etc.?: No Are you currently unemployed and looking for a job?: No Are you interested in more education?: No Please select the resources that you would like help with: None Currently or been in a relationship where the following occur: No concerns reported THRIVE Score: 0 AUDIT C Alcohol Use Questionnaire (AUDIT-C) 1. How often do you have a drink containing alcohol?: Never 3. How often do you have six or more drinks on one occasion?: Never Total Score: 0 Score Reviewed/Action Taken: No MERCEDEZ-7 AMB Questionnaire MERCEDEZ-7 Date MERCEDEZ - 7 assessed: 08/22/23 Feeling nervous, anxious, or on edge: 0 = Not at all Not being able to stop or control worryin = Not at all Worrying too much about different things: 0 = Not at all Trouble relaxin = Not at all Being so restless that it is hard to sit still: 0 = Not at all Becoming easily annoyed or irritable: 0 = Not at all Feeling afraid as if something awful might happen: 0 = Not at all Total MERCEDEZ-7 score (0-4 normal; 5-9 mild; 10-14 moderate; 15-21 severe): 0 Source: Developed by Drs. Peterson Lockhart, Kristen Alfred, Star Lucas and colleagues, with an educational lisa from [employer]. MERCEDEZ-7 Assessment Billing MERCEDEZ-7 Assessment Tool: MERCEDEZ-7 Assessment 96251 Review of Systems Const Denies poor appetite and Denies weakness Eyes Denies no additional complaints ENT Reports Normal hearing present, Denies dizziness, Denies nasal congestion, Jose Carlos es tinnitus and Denies sore throat Card Denies chest pain, Denies syncope, Denies rapid heart rate and Denies dyspnea Resp Denies cough and Denies dyspnea GI Denies change in stool character, Reports constipation, Denies diarrhea, Denies nausea and Denies vomiting Denies dysuria and Denies urinary frequency Neuro Reports Normal hearing present, Denies confusion, Denies dizziness, Denies syncope and Denies weakness Psych Denies confusion Physical exam (Primary Care) Vital Signs: Last Vital Signs Pulse 77 08/22/23 10:21 BP 108/72 08/22/23 10:21 Pulse Ox 98 08/22/23 10:21 Oxygen Delivery Method Room Air 08/22/23 10:21 BMI result Body Mass Index 27.4 Tobacco/Smoking Status: Tobacco use Status Tobacco use date assessed 08/22/23 08/22/23 10:22 Patient Tobacco Use Status Never used Tobacco 08/22/23 10:22 e-Cigarette/Vaping Use Never Used 08/22/23 10:22 PHQ-9: PHQ-9 Score PHQ-9: Total score 0 08/22/23 10:47 Depression Screening Interpretation: Negative Thrive Assessment: Date of Thrive Assessment Date Thrive assessed 08/22/23 08/22/23 10:22 Currently or been in a relationship where the following occur: No concerns reported Const General: No confusion Orientation/consciousness: No confusion HENMT Head: Yes normocephalic Ears: external ears normal and TM's normal bilaterally Face and sinus: Yes normal facial exam Mouth: moist mucous membranes Throat: Yes tonsils normal Eyes Conjunctivae: conjunctivae normal Pupils: Equal, round and reactive pupils present and Pupil accommodation reflex normal Direct Ophthalmoscopy: normal light reflex Neck Neck: No lymphadenopathy Thyroid: Thyroid normal Chest Chest palpation & inspection: normal inspection of the chest Resp Effort & Inspection: normal respiratory effort and no audible wheezes Auscultation: clear to auscultation bilaterally, no crackles, no wheezes and lung sounds not diminished Cardio Rate: regular rate Rhythm: regular rhythm Peripheral pulses: radial pulses present and dorsalis pedis present GI Palpation (GI): no masses Auscultation: normal bowel sounds and normoactive bowel sounds Rectal Exam - Male: Yes deferred Skin General skin exam: no rashes or lesions noted Rashes: no rashes Neuro General: No confusion Cranial nerves: Yes Equal, round and reactive pupils present and Yes Normal hearing present Cognition (Neuro): normal cognition Gait exam (Neuro): Normal gait present Motor exam (neuro): 5/5 motor strength present throughout Deep tendon reflexes (DTR's): Right brachioradialis reflex intensity grade: 2+, Left brachioradialis reflex intensity grade: 2+, Right patellar reflex intensity grade: 2+ and Left patellar reflex intensity grade: 2+ Extrem General: No edema Assessment and Plan Assessment & Plan (1) Annual physical exam: Code(s): Z00.00 - Encounter for general adult medical examination without abnormal findings Plan: Patient is advised to eat healthy, keep well hydrated, keep active and have adequate sleep. (2) Coronary artery disease: Comment: stent placement 2000 Code(s): I25.10 - Atherosclerotic heart disease of [place] coronary artery without angina pectoris Plan: Control the cholesterol, weight, blood pressure,continue with aspirin (3) Paroxysmal atrial fibrillation: Comment: Holter done July 2020 showing pauses of more than 4 seconds but patient is not symptomatic Code(s): I48.0 - Paroxysmal atrial fibrillation Plan: Chads Vasc score of 1 continue with aspirin patient follows up with Cardiology (4) HIV (human immunodeficiency virus infection): Comment: He is doing well and labs are pending Code(s): B20 - Human immunodeficiency virus [HIV] disease Qualifiers: HIV symptom status: asymptomatic, with no history of HIV-related illness Qualified Code(s): Z21 - Asymptomatic human immunodeficiency virus [HIV] infection status Plan: Patient follows up with Infectious Disease (5) Hypercholesterolemia: Code(s): E78.00 - Pure hypercholesterolemia, unspecified Plan: Avoid fried foods, chicken skin, eggs, butter margarine, pastries and meat. Be it pork or beef they have a lot of cholesterol LDL goal of less than 70 and triglyceride of less than 150 has been advised by Cardiology to take cholesterol medication (6) Urinary retention: Code(s): R33.9 - Retention of urine, unspecified Plan: Patient follows up with urology terazosin Orders: Orders Complete Blood Count Auto Diff Today I25.10 - Atherosclerotic heart disease of [place] coronary artery without angina pectoris Comprehensive Met. Panel Today I25.10 - Atherosclerotic heart disease of [place] coronary artery without angina pectoris Free T4 (Free Thyroxine) Today I25.10 - Atherosclerotic heart disease of [place] coronary artery without angina pectoris Thyroid Stimulating Hormone Today I25.10 - Atherosclerotic heart disease of [place] coronary artery without angina pectoris Vitamin B12 and Folate Today I25.10 - Atherosclerotic heart disease of [place] coronary artery without angina pectoris Prostate Specific Antigen Scr Today I25.10 - Atherosclerotic heart disease of [place] coronary artery without angina pectoris Lipid Panel Today E78.00 - Pure hypercholesterolemia, unspecified, I25.10 - Atherosclerotic heart disease of [place] coronary artery without angina pectoris Coding Level of Care Code Est Pt Prev Care 40-64y(94134) Diagnoses Annual physical exam Z00.00 Coronary artery disease I25.10 Paroxysmal atrial fibrillation I48.0 Asymptomatic HIV infection, with no history of HIV-related illness Z21 HIV symptom status: asymptomatic, with no history of HIV-related illness Hypercholesterolemia E78.00 Urinary retention R33.9 Additional Codes MERCEDEZ-7 Assessment Billing - MERCEDEZ-7 Assessment Tool: MERCEDEZ-7 Assessment 30907 ([id number])
== END 2023-08-22 14:40 | disposition home or self-care (01) ==
PROVIDERS: PCP Internal Medicine; Visit Provider Internal Medicine
DX: Z00.00 Encounter for general adult medical examination without abnormal findings (principal); I48.0 Paroxysmal atrial fibrillation; Z21 Asymptomatic human immunodeficiency virus [HIV] infection status; I25.10 Atherosclerotic heart disease of native coronary artery without angina pectoris; E78.00 Pure hypercholesterolemia, unspecified; R33.9 Retention of urine, unspecified
CPT/HCPCS: 99396

== ENCOUNTER 2024-03-17 12:41 | Outpatient (REF) | payer MEDICARE, MEDICAID, SELFPAY ==
[2024-03-17 13:06] LABS: MANUAL DIFF FLAG NO
[2024-03-17 13:17] LABS: Basophils Absolute Auto 0.1 X10*3/uL (0.0-0.2); Basophils Percent Auto 0.8 % (0-2); Eosinophils Absolute Auto 0.1 X10*3/uL (0.0-0.4); Eosinophils Percent Auto 1.6 % (0-4); Hemoglobin 17.2 g/dl (14.0-18.0); Imm Gran Abs Auto 0.03 X10*3/uL (0.00-0.03); Imm Gran Pct Auto 0.5 % (0.0-0.4); Lymphocytes Absolute Auto 1.7 X10*3/uL (1.2-4.9); Mean Corpuscular HGB Conc 34.4 g/dl (31.0-36.0); Mean Corpuscular Hemoglobin 33.1 pg (27.0-33.0); Mean Corpuscular Volume 96.3 fL (80.0-98.0); Mean Platelet Volume 10.8 fL (9.4-12.4); Monocytes Absolute Auto 0.5 X10*3/uL (0.1-1.2); Monocytes Percent Auto 7.9 % (2-11); Neutrophils Absolute Auto 3.7 x10*3/uL (2.0-8.3); Neutrophils Percent Auto 61.2 % (45-73); Platelet Count 147 X10*3/uL (160-400); Red Blood Count 5.19 X10*6/uL (4.60-5.80); Red Cell Distribution Width 12.2 % (11.0-16.0); White Blood Count 6.1 X10*3/uL (4.8-10.8)
[2024-03-17 14:10] LABS: Alanine Aminotransferase 49 U/L (0-40); Albumin Level 4.4 g/dL (3.5-5.0); Alkaline Phosphatase 61 U/L (39-117); Anion Gap 13 (12-20); Aspartate Amino Transferase 47 U/L (5-37); Bilirubin Total 0.5 mg/dL (0.0-1.0); Blood Urea Nitrogen 24 mg/dL (9-16); Carbon Dioxide 28 mmol/L (22-29); Chloride 105 mmol/L (96-108); Cholesterol 179 mg/dL (<200); Estimated Glomerular Filt Rate 53; Glucose Random 96 mg/dL (60-115); HDL Cholesterol 32 mg/dL (>40); LDL Cholesterol Calculated 85 mg/dL (<100); Potassium 4.6 mmol/L (3.3-5.1); Sodium 141 mmol/L (135-145); Total Protein 7.4 g/dL (6.5-8.0); Triglycerides 314 mg/dL (<150)
[2024-03-17 14:11] LABS: Prostate Specific Antigen 0.31 ng/mL (<0.05-4.0)
[2024-03-17 14:21] LABS: Free T4 (Free Thyroxine) 0.91 ng/dL (0.71-1.85); Thyroid Stimulating Hormone 1.08 uIU/mL (0.32-4.0)
[2024-03-17 14:24] LABS: Folate 8.2 ng/mL (> or = 4.0); Prostate Specific Antigen Scr 0.32 ng/mL (<0.05-4.0); Vitamin B12 400 pg/mL (200-900)
== END 2024-03-17 12:42 | disposition home or self-care (01) ==
LOC: HO.LAB 12:41
PROVIDERS: PCP Internal Medicine; Visit Provider Nurse Practitioner Family
DX: I25.10 Atherosclerotic heart disease of native coronary artery without angina pectoris (principal); E78.00 Pure hypercholesterolemia, unspecified; N40.0 Benign prostatic hyperplasia without lower urinary tract symptoms; Z12.5 Encounter for screening for malignant neoplasm of prostate
CPT/HCPCS: 36415; 80053; 80061; 82607; 82746; 84153; 84439; 84443; 85025

== ENCOUNTER 2024-03-18 13:13 | Outpatient (AMB) | payer MEDICARE, MEDICAID, SELFPAY ==
[2024-03-18 13:16] VITALS: BP 112/62; PULSE 51; O2SAT 96; BMI 27.9
--- NOTE | 2024-03-18 13:16 | A.OFFPC_ITS ---
Vital Signs 03/18/24 13:16 Height 5 ft 7.5 in Weight 181 lb BMI 27.9 BP 112/62 Blood Pressure Location Lt brachial Position Sitting Pulse 51 Pulse Source Pulse Oximeter Pulse Oximetry (%) 96 Oxygen Delivery Method Room Air Intake Visit Reasons: abdominal pain Allergies Sulfa (Sulfonamide Antibiotics) [SULFA (SULFONAMIDE ANTIBIOTICS)] Allergy (Unknown, Verified 03/18/24 13:17) UNKNOWN pitavastatin Adverse Reaction (Intermediate, Verified 03/18/24 13:17) Chest Pain Tobacco use date assessed: 03/18/24 Dental Screening Dental Screen Date: 03/18/24 Did you have a dental visit in the last 12 months?: Yes Did you have a dental problem in the last 6 months where you did not have access to dental care?: No Was dental information given to patient?: Patient has dentist HPI abdominal pain HPI Details The patient is a 58-year-old male presenting with lower abdominal pain and testicular tenderness. The abdominal pain is located in the right lower quadrant and has been present for approximately one week. The patient denies nausea, vomiting, diarrhea, and urinary symptoms including dysuria. The pain d oes not radiate and has not been associated with fever. The patient has a history of coronary artery disease and atrial fibrillation, for which he is on aspirin, and mentioned previous statin use led to chest pain. He experiences osteonecrosis in both hips, which can complicate pain assessment. The patient also reported bilateral testicular tenderness without swelling or signs of torsion. There are no difficulties with micturition, and he is currently taking Flomax. His medical history includes elevated cholesterol and a mildly low platelet count, with kidney function described as stable. Additionally, he is managing hemorrhoids for which he requested a prescription for proctosone. The hemorrhoids are not associated with bleeding or constipation; the patient has been using Metamucil nightly to prevent constipation. [facility] Medical History Hx of atrial fibrillation without current medication FHx: atrial fibrillation Arrhythmia Myocardial infarction Bradycardia Bradyarrhythmia Internal and external hemorrhoids without complication Urinary frequency Paroxysmal atrial fibrillation Atherosclerotic cardiovascular disease Fatty liver Anxiety and depression COVID-19 vaccine series completed Bilateral shoulder bursitis Avascular necrosis of bones of both hips HIV (human immunodeficiency virus infection) Avascular necrosis Hip pain Hypertension HIV (human immunodeficiency virus infection) Surgical History Hx of colonoscopy Hx of shoulder surgery History of rotator cuff surgery History of elbow surgery H/O heart artery stent Hx of tonsillectomy History of appendectomy Family History Father Myocardial infarct Mother Skin cancer Brother Myocardial infarct Paternal Grandfather Myocardial infarct Maternal Grandfather Myocardial infarct Social History (Updated 08/22/23 @ 11:13 by Chasity Ellison MD) Housing: Apartment Alcohol intake: never Patient Tobacco Use Status: Never used Tobacco Tobacco use type: Cigarette Years Smoked: marijuana smoking e-Cigarette/Vaping Use: Never Used Second Hand Smoke Exposure: No Current occupational status: disabled Current occupation: Right Handed Cognitive needs: No Hearing needs: No Vision needs: No Questionnaire PHQ-9 Over the last 2 weeks, how often have you been bothered by any of the following problems? 1. Little interest or pleasure in doing things: not at all 2. Feeling down, depressed, or hopeless: not at all 3. Trouble falling or staying asleep, or sleeping too much: not at all 4. Feeling tired or having little energy: not at all 5. Poor appetite or overeating: not at all 6. Feeling bad about yourself - or that you are a failure or have let yourself or your family down: not at all 7. Trouble concentrating on things, such as reading the newspaper or watching television: not at all 8. Moving or speaking so slowly that other people could have noticed. Or the opposite - being so fidgety or restless that you have been moving around a lot more than usual: not at all 9. Thoughts that you would be better off or of hurting yourself in some way: not at all Total score: 0 Depression Screening Interpretation: Negative Depression Screening Done: Yes 03691 - PHQ-9 Billing: Yes Source: Developed by Drs. Peterson Lockhart, Kristen Alfred, Star Lucas and colleagues, with an educational lisa from [employer]. Thrive Questionnaire Date Thrive assessed: 03/18/24 I am a: Patient What is your living situation today?: I have a steady place to live Within the past 12 months, did the food you bought not last and you didn't have the money to get more?: Never true Within the past 12 months, did you worry whether your food would run out before you got money to buy more?: Never true Do you have trouble paying for medicines?: No Do you have trouble getting transportation to medical appointments?: No Do you have trouble paying your heating and electricity bill?: No Do you have trouble taking care of your child, family member or friend?: No Do you have trouble with day-to-day activities such as bathing, preparing meals, shopping, managing finances, etc.?: No Are you currently unemployed and looking for a job?: No Are you interested in more education?: No Please select the resources that you would like help with: None Currently or been in a relationship where the following occur: No concerns reported THRIVE Score: 0 AUDIT C Alcohol Use Questionnaire (AUDIT-C) 1. How often do you have a drink containing alcohol?: Never 3. How often do you have six or more drinks on one occasion?: Never Total Score: 0 Score Reviewed/Action Taken: No MERCEDEZ-7 AMB Questionnaire MERCEDEZ-7 Date MERCEDEZ - 7 assessed: 03/18/24 Feeling nervous, anxious, or on edge: 0 = Not at all Not being able to stop or control worryin = Not at all Worrying too much about different things: 0 = Not at all Trouble relaxin = Not at all Being so restless that it is hard to sit still: 0 = Not at all Becoming easily annoyed or irritable: 0 = Not at all Feeling afraid as if something awful might happen: 0 = Not at all Total MERCEDEZ-7 score (0-4 normal; 5-9 mild; 10-14 moderate; 15-21 severe): 0 Source: Developed by Drs. Peterson Lockhart, Kristen Alfred, Star Lucas and colleagues, with an educational lisa from [employer]. MERCEDEZ-7 Assessment Billing MERCEDEZ-7 Assessment Tool: MERCEDEZ-7 Assessment 52408 Physical exam (Primary Care) Vital Signs: Last Vital Signs Pulse 51 03/18/24 13:16 BP 112/62 03/18/24 13:16 Pulse Ox 96 03/18/24 13:16 Oxygen Delivery Method Room Air 03/18/24 13:16 BMI result Body Mass Index 27.9 Tobacco/Smoking Status: Tobacco use Status Tobacco use date assessed 03/18/24 03/18/24 13:22 Patient Tobacco Use Status Never used Tobacco 03/18/24 13:22 Tobacco use type Cigarette 03/18/24 13:22 e-Cigarette/Vaping Use Never Used 03/18/24 13:22 PHQ-9: PHQ-9 Score PHQ-9: Total score 0 03/18/24 13:22 Depression Screening Interpretation: Negative Thrive Assessment: Date of Thrive Assessment Date Thrive assessed 03/18/24 03/18/24 13:22 Currently or been in a relationship where the following occur: No concerns reported Const General: alert; No acute distress Eyes Conjunctivae: conjunctivae normal Resp Auscultation: clear to auscultation bilaterally Cardio Rate: regular rate Rhythm: regular rhythm GI Other: Soft nontender no rebound no guarding Inspection: Yes normal to inspection Other: Scrotum no swelling has some mild redness and tender. Extrem General: Yes normal to inspection and No edema Coding Level of Care Code Est Pt Level 4 (21375) Diagnoses Coronary artery disease I25.10 Paroxysmal atrial fibrillation I48.0 Asymptomatic HIV infection, with no history of HIV-related illness Z21 HIV symptom status: asymptomatic, with no history of HIV-related illness Hypercholesterolemia E78.00 Hemorrhoid K64.9 Scrotal pain N50.82 Additional Codes MERCEDEZ-7 Assessment Billing - MERCEDEZ-7 Assessment Tool: MERCEDEZ-7 Assessment 11910 ([id number]) PHQ-9 - 54523 - PHQ-9 Billing: Yes ([id number]) Assessment & Plan Assessment & Plan (1) Coronary artery disease: Comment: stent placement 2000 Code(s): I25.10 - Atherosclerotic heart disease of [place] coronary artery without angina pectoris Category: Medical (2) Paroxysmal atrial fibrillation: Comment: Holter done July 2020 showing pauses of more than 4 seconds but patient is not symptomatic Code(s): I48.0 - Paroxysmal atrial fibrillation Category: Medical (3) HIV (human immunodeficiency virus infection): Comment: He is doing well and labs are pending Code(s): B20 - Human immunodeficiency virus [HIV] disease Category: Medical Qualifiers: HIV symptom status: asymptomatic, with no history of HIV-related illness Qualified Code(s): Z21 - Asymptomatic human immunodeficiency virus [HIV] infe ction status (4) Hypercholesterolemia: Code(s): E78.00 - Pure hypercholesterolemia, unspecified Category: Medical (5) Hemorrhoid: Code(s): K64.9 - Unspecified hemorrhoids Category: Medical (6) Scrotal pain: Code(s): N50.82 - Scrotal pain Category: Medical Plan: Declined ultrasound. Patient is treated as epididymitis. Plan - For lower abdominal and testicular pain: Initiate treatment with Ciprofloxacin 500 mg twice daily for seven days to address the possibility of epididymitis. The possibility of an ultrasound to further assess pain symptoms was discussed. - For hemorrhoids: Prescribed Proctosone cream for symptomatic relief. Advised on maintaining bowel regularity and educated on the use of Metamucil. - For coronary artery disease and atrial fibrillation: Continue aspirin therapy. Statins were previously discontinued due to associated chest pain. - Discussed current prostate biomarkers; no immediate cause for concern. Further management was not deemed necessary. - Addressed hyperlipidemia with advice on dietary management; patient non- compliant with cholesterol medication at present. - Reimbursed terazole prescription required due to increased patient usage; discussed current prescription limits. - Patient education provided on preventative RSV vaccination policy given patient's immunocompromised status. Medications: New ciprofloxacin HCl 500 mg PO BID 14 tabs 0RF N50.82 - Scrotal pain hydrocortisone 2.5% (Proctozone-HC) 1 appl ID [id number] PRN 60 grams 1RF hemorrhoids K64.9 - Unspecified hemorrhoids
--- OUTSIDE RECORDS SUMMARY | 2024-03-18 15:11 | XMS_ITS | Data Portability ---
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 Otologic exam remarkable only for eczema in the EAC without otitis externa. Recommend Lotrisone cream as needed for itching and flaking. Audiometric testing demonstrates bilateral, symmetric, neurosensory hearing loss. Recommend binaural amplification; rationale and benefits reviewed and patient understands. Copy of audiogram provided to patient along with a medical clearance form and a list of providers who accept their insurance. Recommend annual audiometric testing, sooner with perceived change in hearing. All questions were answered. Not available 09/26/2023 14:34:43 Plan of Treatment Reminders Order Date Submit Date Provider Last Modified By Organization Details Last Modified Time Details Appointments Establish ed 15 2024 09:30A Marie RAMIRES PA-C Not available Not available Not available Lab None recorded. Referral None recorded. Procedures None recorded. Surgeries None recorded. Imaging None recorded. Medication Orders clotrimaz ole-betam ethasone 1 %-0.05 % topical cream 2023 024 [id number], [address], [place], [place], [phone], 09/26/2023 13:20:17 Patient TargetsNo targets recorded. Patient InstructionsNo instructions recorded. Reason for Referral None Reported. Results Created Date Observation Date Name Description Value Unit Range Abnormal Flag Note LastModifiedBy Organization Detail LastModifiedTime 09/27/19 audio gram No observ ation record ed. Not Available 2023 14:42:47 10/15/19 24 09/01/2020 imagi ng/di agnos tic resul t No observ ation record ed. [email or web address] Not Available 21:49:51 10/15/1901/02/2022 imagi ng/di agnos tic resul t No observ ation record ed. [email or web address] Not Available 21:49:52 10/15/19 24 01/02/2022 imagi ng/di agnos tic resul t No observ ation record ed. [email or web address] Not Available 21:49:53 Result Notes None recorded. Problems Name Problem SNOMED Code Status Onset Date Resolution Date Notes Provider Name and Address Organization Details Recorded Time Impacted cerumen in right ear 17787707583 76273 Active 2021 Impacted cerumen, right ear; Note: Date Diagnosed : 01/02/2022 9:59 AM (H61.21) Not Available [facility] 4 02:27:11 Sensorine ural hearing loss of bilateral ears 028641730 Active 2021 Sensorine ural hearing loss, bilateral ; Note: Date Diagnosed : 01/02/2022 10:32 AM (H90.3) Not Available [facility] 4 02:27:15 Diffuse otitis externa 60852165 Active 2021 Diffuse otitis externa, unspecifi ed ear; Note: Date Diagnosed : 04/06/2021 10:27 AM (H60.319) Not Available [facility] 4 02:27:07 Chronic eczema of external auditory canal 235691840 Active 2023 FOZIA RAMIRES PA-C [address] [place] [address], [place], [phone] , [facility] - [facility] 4 13:19:44 Problem Notes None recorded. Procedures Surgical History Date Name Laterality Status Provider Name and Address Organization Details Recorded Time 09/26/2023 Air & Speech Audio with Tymps (69998, 23380 & 13822) completed DRU T[place]UM [place], [facility] [address] [address], [place], [address], [place] [facility] 09/26/2023 13:54:19 Imaging Results Imaging Date Name Status LastModified by Organiz ation Details LastModified Time 09/27/2023 audiogram completed Information no t available 09/30/2023 14:42:47 09/01/2020 imaging/diagno stic result completed Information not available 10/15/2023 21:49:51 01/02/2022 imaging/diagno stic result completed Information not available 10/15/2023 21:49:52 01/02/2022 imaging/diagno stic result completed Information not available 10/15/2023 21:49:53 Procedure Notes None recorded. Medical Equipment None Reported. Allergies Allergen ID Allergen Name Allergen Category Reaction Reaction Severity Criticality Documentation Date Start Date Code Code System Note Provider Name and Address Organization Details Recorded Time 42269 Substance with sulfonami de structure and antibacte rial mechanism of action (substanc e) medicatio n other Not available Not available 07/09/2023 21655 8003 SNOMED React ion: other react ion, Unkno wn; Not Available [facility] 4 00:56:15 Medications Name Sig Start Date Stop Date Status Note LastModified by Organization Details LastModified Time terazosin 5 mg capsule TAKE 1 CAPSULE BY MOUTH AT BEDTIME active Not Available Not Available No t Available clotrimaz ole-betam ethasone 1 %-0.05 % lotion a small amount 04/10 completed Medicati on ID: [id number] D uration Value: 14 Prescri bed By Name: Peterson dukes MD Brand Name: clotrima zole-bet amethaso rafi Send Method: E-Prescr ibed Sub s Allowed: subs OK Speci al Instruct ion: Apply with finger to ear canal skin. Me dication GenericN tom: clotrima zole-bet amethaso ne Not Available Not Available Not Available isosorbid e mononitra te ER 30 mg tablet,ex tended release 24 hr TAKE 1 TABLET BY MOUTH DAILY active Not Available Not Available No t Available valacyclo vir 500 mg tablet TAKE 1 TABLET BY MOUTH TWICE DAILY active Not Available Not Available No t Available tramadol 50 mg tablet 2021 active Medicati on ID: [id number] B rand Name: tramadol Send Method: E-Prescr ibed Sub s Allowed: subs OK Speci al Instruct ion: TAKE 1 TABLET BY MOUTH TWICE DAILY NEEDED FOR PAIN Med icationG enericNa me: tramadol Not Available Not Available Not Available clotrimaz ole-betam ethasone 1 %-0.05 % topical cream APPLY TOPICALL Y TO THE AFFECTED AND SURROUND ING AREAS TWICE DAILY IN THE MORNING AND IN THE EVENING FOR 2 WEEKS active Not Available Not Available No t Available ursodiol 300 mg capsule TAKE 3 CAPSULE BY MOUTH EVERY MORNING AND 2 CAPSULE EVERY EVENING active Not Available Not Available No t Available clotrimaz ole 1 % topical solution 04/10 completed Medicati on ID: [id number] P moraimaribe d By Name: Peterson dukes MD Brand Name: clotrima zoljabari Kenney d Method: E-Prescr ibed Sub s Allowed: subs OK Speci al Instruct ion: 5 drops to affected ear twice a day Medi cationGe nericNam e: clotrima zole Not Available Not Available Not Available nitroglyc ivy 0.4 [address] sub[address] l tablet PLACE 1 TABLET UNDER THE TONGUE EVERY 5 MINUTES NEEDED FOR CHEST PAIN active Not Available Not Available No t Available betametha sone dipropion ate 0.05 % topical cream Apply 1 a small amount to affected area twice a day 2021 active Medicati on ID: [id number] D uration Value: 30 Prescri bed By Name: Peterson dukes MD Brand Name: betameth asone dipropio sharron Sen d Method: E-Prescr ibed Sub s Allowed: subs OK Speci al Instruct ion: apply to ear canal Me dication GenericN tom: betameth asone dipropio sharron Not Available Not Available Not Available metoprolo l succinate ER 25 mg tablet,ex tended release 24 hr TAKE 1/2 TABLET BY MOUTH DAILY active Not Available Not Available No t Available zolpidem 10 mg tablet TAKE 1 TABLET BY MOUTH AT BEDTIME active Not Available Not Available No t Available clotrimaz ole 1 % topical cream Apply 1 a small amount to affected area twice a day 2021 active Medicati on ID: [id number] D uration Value: 30 Prescri bed By Name: Peterson dukes MD Brand Name: guanakito bartlett Sen d Method: E-Prescr ibed Sub s Allowed: subs OK Speci al Instruct ion: ear canal Me dication GenericN tom: clotrima zole Not Available Not Available Not Available amoxicill in 875 mg-potass ium clavulana te 125 mg tablet 2021 active Medicati on ID: [id number] B rand Name: amoxicil gavi-pot clavulan ate Send Method: E-Prescr ibed Sub s Allowed: subs OK Speci al Instruct ion: TAKE 1 TABLET BY MOUTH EVERY 12 HOURS FOR 7 DAYS Med icationG enericNa me: amoxicil gavi-pot clavulan ate Not Available Not Available Not Available amoxicill in 500 mg-potass ium clavulana te 125 mg tablet TAKE 1 TABLET BY MOUTH EVERY 12 HOURS active Not Available Not Available No t Available oxycodone 5 mg tablet 2021 active Medicati on ID: [id number] B rand Name: oxycodon e Send Method: E-Prescr ibed Sub s Allowed: subs OK Medic ationGen ericName : oxycodon e Not Available Not Available Not Available bupropion HCl SR 200 mg tablet,12 hr sustained -release TAKE 1 TABLET BY MOUTH EVERY EVENING active Not Available Not Available No t Available DermOtic Oil 0.01 % ear drops 2021 active Medicati on ID: [id number] D uration Value: 30 Brand Name: DermOtic Oil Send Method: E-Prescr ibed Sub s Allowed: subs OK Speci al Instruct ion: Apply 4 drops to each ear 2 times a week and as needed Marie Dejesus Name: DermOtic Oil Not Available Not Available Not Available pitavasta tin calcium 4 mg tablet TAKE 1 TABLET BY MOUTH DAILY active Not Available Not Available No t Available OxyContin 10 mg tablet,cr ush resistant ,extended release 2021 active Medicati on ID: [id number] B rand Name: OxyConti n Send Method: E-Prescr ibed Sub s Allowed: subs OK Medic ationGen ericName : OxyConti n Not Available Not Available Not Available Genvoya 150 mg-150 mg-200 mg-10 mg tablet 2021 active Medicati on ID: [id number] B rand Name: Kathy Send Method: E-Prescr ibed Sub s Allowed: subs OK Speci al Instruct ion: TAKE 1 TABLET BY MOUTH DAILY Me dication GenericN tom: Genvoya Not Available Not Available Not Available Biktarvy 50 mg-200 mg-25 mg tablet TAKE 1 TABLET BY MOUTH EVERY DAY active Not Available Not Available No t Available Pifeltro 100 mg tablet TAKE 1 TABLET BY MOUTH EVERY DAY active Not Available Not Available No t Available Vitals Date Recorded Body height Body mass index (BMI) Body weight Provider Name and Address Organization Details Last Updated DateTime 09/26/2023 167.64 cm 28.2 kg/m2 44539.66 g Travis Araujo [facility] 09/26/2023 13:09:44 Social History None recorded. Functional Status None recorded. Mental Status None recorded. Family History Nothing Reported. Medical History No medical history recorded. Past Encounters Encounter ID Performer Location Encounter Start Date Encounter Closed Date Diagnosis/Indication Diagnosis SNOMED-CT Code Diagnosis ICD10 Code Diagnosis Note [id number] MISHEL BURR MD [facility] [address] [phone] 09/26/2023 12:47:10 09/26/2023 14:22:55 Chronic eczema of external auditory canal 214275224 H60.8X9 Sensorineu ral hearing loss of bilateral ears 534338175 H90.3 Audiologic al evaluation results: Right ear: {{Normal N ormal through 2 kHz Mild M oderate Mo derately-s evere Marisa re Profoun d Normal thru 2000Hz #}} {{hearing sloping to a mild slopi ng to a moderate s loping to moderately severe slo ping to severe slo ping to profound f lat high frequency low frequency mid frequency cookie bite navarro curve slop ing to a mild-moder ate SNHL#}} {{with* se nsorineura l hearing loss with condu ctive hearing loss with mixed hearing loss with}} {{excellen t* good fa ir poor no measurable }} word recognitio n. Left ear: {{Normal N ormal through 2 kHz Mild M oderate Mo derately-s evere Marisa re Profoun d Normal through 1500Hz #}} {{hearing sloping to a mild slopi ng to a moderate s loping to moderately severe slo ping to severe slo ping to profound f lat high frequency low frequency mid frequency cookie bite navarro curve sloi ng to a mild tp severe SNHL#}} {{with* se nsorineura l hearing loss with condu ctive hearing loss with mixed hearing loss with}} {{excellen t* good fa ir poor no measurable }} word recognitio n. Tympanomet ry: Right Ear:{{Type A* Type As Type Ad Type C Type C, shallow & rounded Ty pe B Type B with large volume Cou ld not maintain a hermetic seal}} Left Ear:{{Type A Type As Type Ad* Type C Type C, shallow & rounded Ty pe B Type B with large volume Cou ld not maintain a hermetic seal}} Health Concerns Section Related Observation LastModified by Organization Detai ls LastModified Time None Recorded Concern Status LastModified by Organization Details LastModified Time None Recorded Advance Directives Directive None Recorded Payers Encounter Date Sequence Insurance Name Policy Number Policy Lutz Covered Member ID Lutz Member ID Guarantor Name 09/26/2023 2 [place] [facility] Kip Chapman [id number] Kip Chapman 09/26/2023 1 MEDICARE B: [employer] MEDICARE Kip Chapman [id number] Kip Chapman Notes Date Note Type Note Provider Name and Address Organization Details Recorded Time 09/26/2023 text/html 58 year old male presents for evaluation of ears and hearing. Feels he does not hear well. Was previously advised to get hearing aids but did not. That was late 2021. Has worsened since then. Affecting both sides. There is no pain and no otorrhea. No tinnitus. The ears do get itchy. Used to get a cream for that that worked very well. MISHEL BURR MD [address] [place] [address], [phone], [facility] - [facility] 09/27/2023 09:16:25
== END 2024-03-18 15:00 | disposition home or self-care (01) ==
PROVIDERS: PCP Internal Medicine; Visit Provider Internal Medicine
DX: I25.10 Atherosclerotic heart disease of native coronary artery without angina pectoris (principal); I48.0 Paroxysmal atrial fibrillation; Z21 Asymptomatic human immunodeficiency virus [HIV] infection status; E78.00 Pure hypercholesterolemia, unspecified; K64.9 Unspecified hemorrhoids; N50.82 Scrotal pain

== ENCOUNTER → 2024-03-18 13:13 | Outpatient (BNVA) | payer MEDICARE, MEDICAID, SELFPAY | PROVIDERS: PCP Internal Medicine; Visit Provider Internal Medicine | DX: I25.10 Atherosclerotic heart disease of native coronary artery without angina pectoris (principal); I48.0 Paroxysmal atrial fibrillation; E78.00 Pure hypercholesterolemia, unspecified; Z21 Asymptomatic human immunodeficiency virus [HIV] infection status; K64.9 Unspecified hemorrhoids; N50.82 Scrotal pain | CPT/HCPCS: 96127; 99212 ==

== ENCOUNTER → 2024-03-23 11:10 | Outpatient (BNVA) | payer MEDICARE, MEDICAID, SELFPAY | PROVIDERS: PCP Internal Medicine; Visit Provider Surgery | DX: K64.8 Other hemorrhoids (principal) | CPT/HCPCS: 46600; 99212 ==

== ENCOUNTER 2024-03-30 11:19 | Emergency (ER) | payer MEDICARE, MEDICAID, SELFPAY ==
--- NOTE | ~2024-03-30 | CT_ITS ---
CLINICAL HISTORY: right sided abd pain CT abdomen and pelvis with contrast Comparison: None Findings: The lung bases are clear. There are few small bilateral renal cysts. The gallbladder is normal. The solid organs are otherwise unremarkable. There is a small periampullary duodenum diverticulum. The GI tract is otherwise unremarkable. The appendix is absent. There are changes suggestive of avascular necrosis of both femoral heads. IMPRESSION: 1. No acute findings. 2. Avascular necrosis bilateral femoral heads. Findings appear chronic however consider MRI as clinically necessary. This document has been electronically signed by: Franc Jimenez MD on 03/30/2024 22:29:33
[2024-03-30 12:06] VITALS: BP 146/108; PULSE 52; RESP 16; TEMP 36.5; O2SAT 97; BMI 34.5
--- NOTE | 2024-03-30 12:07 | ED.ABDPAIN ---
HPI - Abdominal Pain General Chief Complaint: Abdominal Pain Stated Complaint: Abd pain Time Seen by Provider: 03/30/24 18:13 Related Data Home Medications ?Medication ?Instructions ?Recorded ?Confirmed aspirin 81 mg tablet,delayed 81 mg PO DAILY 01/05/20 03/23/24 release (Adult Aspirin Regimen) coenzyme Q10 100 mg capsule 300 mg PO QAM 01/05/20 03/23/24 (CoQ-10) ursodiol 300 mg capsule 900 mg PO QAM 01/05/20 03/23/24 cholecalciferol (vitamin D3) 125 125 mcg PO QPM 07/08/20 03/23/24 mcg (5,000 unit) capsule ursodiol 300 mg capsule 600 mg PO QPM 07/08/20 03/23/24 doravirine 100 mg tablet (Pifeltro) 100 mg PO DAILY 04/27/21 03/23/24 isosorbide mononitrate 30 mg 30 mg PO DAILY 05/01/23 03/23/24 tablet,extended release 24 hr nitroglycerin 0.4 mg sublingual mg sublingual 08/22/23 03/23/24 tablet Previous Rx's ?Medication ?Instructions ?Recorded bictegravir 50 mg-emtricitabine 1 tab PO DAILY #90 tabs 12/06/20 200 mg-tenofovir alafenam 25 mg tablet (Biktarvy) valacyclovir 500 mg tablet 500 mg PO BID 90 days #180 tabs 10/21/23 zolpidem 10 mg tablet 10 mg PO BEDTIME 90 days #90 tabs 01/07/24 metoprolol succinate 25 mg 12.5 mg (1/2 x 25 mg) PO DAILY 90 01/21/24 tablet,extended release 24 hr days #45 tabs bupropion HCl 200 mg tablet,12 hr 200 mg PO QPM 90 days #90 tabs 02/12/24 sustained-release terazosin 5 mg capsule 5 mg PO BEDTIME 90 days #90 caps 03/12/24 ciprofloxacin HCl 500 mg tablet 500 mg PO BID #14 tabs 03/18/24 hydrocortisone 2.5 % topical cream 1 appl CO BID-QID PRN hemorrhoids 03/18/24 with perineal applicator #60 grams (Proctozone-HC) menthol 0.44 %-zinc oxide 20.6 % 1 appl topical QID PRN skin 03/24/24 topical ointment (Calmoseptine) irritation around anus #113 grams Allergies Allergy/AdvReac Type Severity Reaction Status Date / Time Sulfa (Sulfonamide Allergy Unknown UNKNOWN Verified 03/30/24 12:11 Antibiotics) [SULFA (SULFONAMIDE ANTIBIOTICS)] pitavastatin AdvReac Intermediate Chest Pain Verified 03/30/24 12:11 [facility] Past Medical History Medical History Hemorrhoids with complication Hx of atrial fibrillation without current medication FHx: atrial fibrillation Arrhythmia Myocardial infarction Bradycardia Bradyarrhythmia Internal and external hemorrhoids without complication Urinary frequency Paroxysmal atrial fibrillation Atherosclerotic cardiovascular disease Fatty liver Anxiety and depression COVID-19 vaccine series completed Bilateral shoulder bursitis Avascular necrosis of bones of both hips HIV (human immunodeficiency virus infection) Avascular necrosis Hip pain Hypertension HIV (human immunodeficiency virus infection) Surgical History Hx of colonoscopy Hx of shoulder surgery History of rotator cuff surgery History of elbow surgery H/O heart artery stent Hx of tonsillectomy History of appendectomy Family History Family History Father Myocardial infarct Mother Skin cancer Brother Myocardial infarct Paternal Grandfather Myocardial infarct Maternal Grandfather Myocardial infarct Social History Social History Housing: Apartment Alcohol intake: never Patient Tobacco Use Status: Never used Tobacco Tobacco use type: Cigarette Years Smoked: marijuana smoking Smoked in Last 30 Days: No e-Cigarette/Vaping Use: Never Used Second Hand Smoke Exposure: No Use of substances other than those prescribed or required for medical reasons: No Advance Directives: No Advance Directives Information Provided: No Current occupational status: disabled Current occupation: Right Handed Cognitive needs: No Hearing needs: No Vision needs: No Physical Exam ED Vital Signs: Vital Signs - 24 hr 03/30/24 12:06 03/30/24 17:59 03/30/24 20:00 Temperature 97.7 F 98.8 F 98.5 F Pulse Rate 52 54 40 L Respiratory Rate 16 18 18 Blood Pressure 146/108 H 138/78 135/70 Pulse Oximetry 97 98 96 Oxygen Delivery Method Room Air Room Air 03/30/24 22:00 Temperature 97.9 F Pulse Rate 37 L Respiratory Rate 18 Blood Pressure 110/63 Pulse Oximetry 96 Oxygen Delivery Method Room Air BMI result Body Mass Index 34.5 Course Course Course Narrative: This is a Rapid Medical Exam performed in triage by Adore Gordon PA-C. Full HPI, ROS and PE to be performed by primary ED provider. 58-year-old male with past medical history insomnia, proximal AFib, ACS, AIDS/HIV (nondetectable levels), presenting to the ED c/o RLQ abd pain x1 mos it is associated constipation. Denies dysuria/hematuria PE: Abdomen is with RLQ tenderness, no rebound or guarding Plan: Labs, UA Medical Decision Making Lab Data 03/30/24 15:01 03/30/24 15:01 Labs: Lab Results 03/30/24 03/30/24 Range/Units 15:01 20:35 WBC 8.4 (4.8-10.8) X10*3/uL RBC 5.56 (4.60-5.80) X10*6/uL Hgb 18.4 H (14.0-18.0) g/dl Hct 51.8 (42.0-52.0) % MCV 93.2 (80.0-98.0) fL MCH 33.1 H (27.0-33.0) pg MCHC 35.5 (31.0-36.0) g/dl RDW 12.4 (11.0-16.0) % Plt Count 157 L (160-400) X10*3/uL MPV 10.8 (9.4-12.4) fL Immature Gran % (Auto) 0.5 H (0.0-0.4) % Neut % (Auto) 65.8 (45-73) % Lymph % (Auto) 24.7 (20-40) % [place] % (Auto) 7.3 (2-11) % Eos % (Auto) 1.1 (0-4) % Baso % (Auto) 0.6 (0-2) % Lymph # (Auto) 2.1 (1.2-4.9) X10*3/uL [place] # (Auto) 0.6 (0.1-1.2) X10*3/uL Eos # (Auto) 0.1 (0.0-0.4) X10*3/uL Baso # (Auto) 0.1 (0.0-0.2) X10*3/uL Abs Immat Gran (auto) 0.04 H (0.00-0.03) X10*3/uL Absolute Neuts (auto) 5.5 (2.0-8.3) x10*3/uL Absolute Nucleated RBC 0.000 (0.0-0.012) X10*3/uL Nucleated RBC % (auto) 0.0 (0.0-0.2) /100WBC PT 12.4 (10.9-12.4) SEC INR 1.1 (0.9-1.1) Sodium 140 (135-145) mmol/L Potassium 4.5 (3.3-5.1) mmol/L Chloride 107 (96-108) mmol/L Carbon Dioxide 23 (22-29) mmol/L Anion Gap 15 (12-20) BUN 21 H (9-16) mg/dL Creatinine 1.25 (0.5-1.4) mg/dL Estim Creat Clear Calc 70.2 Estimated GFR 59 Random Glucose 80 (60-115) mg/dL Calcium 9.7 D (8.4-10.2) mg/dL Magnesium 2.3 (1.6-2.6) mg/dL Total Bilirubin 0.7 (0.0-1.0) mg/dL Direct Bilirubin 0.2 (0.0-0.5) mg/dL AST 47 H (5-37) U/L ALT 43 H (0-40) U/L Alkaline Phosphatase 40 (39-117) U/L Troponin I High Sens 4.3 (<3.5-35.0) ng/L Total Protein 7.7 (6.5-8.0) g/dL Albumin 4.7 (3.5-5.0) g/dL Lipase 13 (8-78) U/L TSH 0.81 (0.32-4.0) uIU/mL Urine Color Yellow Urine Appearance Clear Urine pH 5.5 (5.0-9.0) Ur Specific [place] 1.020 (1.005-1.025) Urine Protein Negative (Neg-Trace) mg/dL Urine Glucose (UA) Negative (Negative) mg/dL Urine Ketones Trace (Negative) mg/dL Urine Blood Negative (Negative) Urine Nitrite Negative (Negative) Ur Leukocyte Esterase Negative (Negative) Medications Administered Discontinued Medications Generic Name Dose Route Start Last Admin Trade Name Freq PRN Reason Stop Dose Admin Iohexol 85 ml 03/30/24 21:35 03/30/24 21:35 Iohexol 350 Mg/Ml 100 Ml Infus..Btl IV 03/30/24 21:36 85 ml ONCE ONE Administration Discharge Plan Discharge Clinical Impression: Abdominal pain, Atrial fibrillation, Bradycardia Patient Disposition: Left Against Medical Advice Instructions: A-fib (Atrial Fibrillation) (ED), Bradycardia (ED), Against Medical Advice (ED) Prescriptions: No Action Biktarvy 50-200-25 mg tablet 1 tab PO DAILY Qty: 90 1RF valacyclovir 500 mg tablet 500 mg PO BID 90 Days Qty: 180 2RF zolpidem 10 mg tablet 10 mg PO BEDTIME 90 Days Qty: 90 0RF metoprolol succinate 25 mg tablet extended release 24 hr 12.5 mg PO DAILY 90 Days Qty: 45 2RF bupropion HCl 200 mg tablet sustained-release 12 hr 200 mg PO QPM 90 Days Qty: 90 1RF terazosin 5 mg capsule 5 mg PO BEDTIME 90 Days Qty: 90 3RF menthol-zinc oxide [Calmoseptine] 0.44-20.6 % ointment 1 appl topical QID PRN (Reason: skin irritation around anus) Qty: 113 0RF ursodiol 300 mg Capsule 600 mg PO QPM cholecalciferol (vitamin D3) 125 mcg (5,000 unit) Capsule 125 mcg PO QPM nitroglycerin 0.4 mg tablet, sublingual sublingual ursodiol 300 mg capsule 900 mg PO QAM aspirin [Adult Aspirin Regimen] 81 mg tablet,delayed release (DR/EC) 81 mg PO DAILY coenzyme Q10 [CoQ-10] 100 mg capsule 300 mg PO QAM Pifeltro 100 mg tablet 100 mg PO DAILY isosorbide mononitrate 30 mg tablet extended release 24 hr 30 mg PO DAILY hydrocortisone [Proctozone-HC] 2.5 % cream with perineal applicator 1 appl CO BID-QID PRN (Reason: hemorrhoids) Qty: 60 1RF ciprofloxacin HCl 500 mg tablet 500 mg PO BID Qty: 14 0RF Referrals: Po,Chasity Gómez MD [Primary Care Provider] - 03/31/24 Stand Alone Forms: Against Medical Advice Print Language: Bruneian
[2024-03-30 15:05] LABS: MANUAL DIFF FLAG NO
[2024-03-30 15:07] LABS: Basophils Absolute Auto 0.1 X10*3/uL (0.0-0.2); Basophils Percent Auto 0.6 % (0-2); Eosinophils Absolute Auto 0.1 X10*3/uL (0.0-0.4); Eosinophils Percent Auto 1.1 % (0-4); Hematocrit 51.8 % (42.0-52.0); Hemoglobin 18.4 g/dl (14.0-18.0); Imm Gran Abs Auto 0.04 X10*3/uL (0.00-0.03); Imm Gran Pct Auto 0.5 % (0.0-0.4); Lymphocytes Absolute Auto 2.1 X10*3/uL (1.2-4.9); Lymphocytes Percent Auto 24.7 % (20-40); Mean Corpuscular HGB Conc 35.5 g/dl (31.0-36.0); Mean Corpuscular Hemoglobin 33.1 pg (27.0-33.0); Mean Corpuscular Volume 93.2 fL (80.0-98.0); Mean Platelet Volume 10.8 fL (9.4-12.4); Monocytes Absolute Auto 0.6 X10*3/uL (0.1-1.2); Monocytes Percent Auto 7.3 % (2-11); Neutrophils Absolute Auto 5.5 x10*3/uL (2.0-8.3); Neutrophils Percent Auto 65.8 % (45-73); Platelet Count 157 X10*3/uL (160-400); Red Blood Count 5.56 X10*6/uL (4.60-5.80); Red Cell Distribution Width 12.4 % (11.0-16.0); White Blood Count 8.4 X10*3/uL (4.8-10.8)
[2024-03-30 15:17] LABS: INTERNATIONAL NORM RATIO 1.1 (0.9-1.1); Prothrombin Time 12.4 SEC (10.9-12.4)
[2024-03-30 15:36] LABS: Alanine Aminotransferase 43 U/L (0-40); Albumin Level 4.7 g/dL (3.5-5.0); Anion Gap 15 (12-20); Aspartate Amino Transferase 47 U/L (5-37); Bilirubin Direct 0.2 mg/dL (0.0-0.5); Bilirubin Total 0.7 mg/dL (0.0-1.0); Blood Urea Nitrogen 21 mg/dL (9-16); Calcium 9.7 mg/dL (8.4-10.2); Carbon Dioxide 23 mmol/L (22-29); Chloride 107 mmol/L (96-108); Creatinine Clr Calc Pharmacy 70.2; Estimated Glomerular Filt Rate 59; Glucose Random 80 mg/dL (60-115); Lipase 13 U/L (8-78); Magnesium 2.3 mg/dL (1.6-2.6); Potassium 4.5 mmol/L (3.3-5.1); Sodium 140 mmol/L (135-145); Total Protein 7.7 g/dL (6.5-8.0)
[2024-03-30 16:08] LABS: Alkaline Phosphatase 40 U/L (39-117)
[2024-03-30 17:59] VITALS: BP 138/78; PULSE 54; RESP 18; TEMP 37.1; O2SAT 98
--- NOTE | 2024-03-30 19:04 | PC.NURSE ---
this rn assumed care of pt, pt a&ox4, respirations even and unlabored. pt offers no complaints at this time.
--- NOTE | 2024-03-30 19:12 | ED_ITS ---
HPI - Abdominal Pain General Chief Complaint: Abdominal Pain Stated Complaint: Abd pain Time Seen by Provider: 03/30/24 18:13 History of Present Illness HPI narrative: Patient is a 58-year-old male with a history of HIV but is currently under retroviral treatment with a good viral load and CD4 count. Presented today with having right-sided abdominal pain. It is worse over the right upper quadrant and it is constant. It is associated with some constipation. Patient had an appendectomy done many years ago. No coughing or congestion no chest pain or shortness of breath. No diaphoresis. Not related to food is constantly there. Been having hard stool. Patient claims it is like pellets. Patient denies any pain on urination. Denies any fever chills. He is from home. He did try to take some txdp-pbs-fjbcope constipation medication to no avail. He tried Metamucil. Related Data Home Medications ?Medication ?Instructions ?Recorded ?Confirmed aspirin 81 mg tablet,delayed 81 mg PO DAILY 01/05/20 03/23/24 release (Adult Aspirin Regimen) coenzyme Q10 100 mg capsule 300 mg PO QAM 01/05/20 03/23/24 (CoQ-10) ursodiol 300 mg capsule 900 mg PO QAM 01/05/20 03/23/24 cholecalciferol (vitamin D3) 125 125 mcg PO QPM 07/08/20 03/23/24 mcg (5,000 unit) capsule ursodiol 300 mg capsule 600 mg PO QPM 07/08/20 03/23/24 doravirine 100 mg tablet (Pifeltro) 100 mg PO DAILY 04/27/21 03/23/24 isosorbide mononitrate 30 mg 30 mg PO DAILY 05/01/23 03/23/24 tablet,extended release 24 hr nitroglycerin 0.4 mg sublingual mg sublingual 08/22/23 03/23/24 tablet Previous Rx's ?Medication ?Instructions ?Recorded bictegravir 50 mg-emtricitabine 1 tab PO DAILY #90 tabs 12/06/20 200 mg-tenofovir alafenam 25 mg tablet (Biktarvy) valacyclovir 500 mg tablet 500 mg PO BID 90 days #180 tabs 10/21/23 zolpidem 10 mg tablet 10 mg PO BEDTIME 90 days #90 tabs 01/07/24 metoprolol succinate 25 mg 12.5 mg (1/2 x 25 mg) PO DAILY 90 01/21/24 tablet,extended release 24 hr days #45 tabs bupropion HCl 200 mg tablet,12 hr 200 mg PO QPM 90 days #90 tabs 02/12/24 sustained-release terazosin 5 mg capsule 5 mg PO BEDTIME 90 days #90 caps 03/12/24 ciprofloxacin HCl 500 mg tablet 500 mg PO BID #14 tabs 03/18/24 hydrocortisone 2.5 % topical cream 1 appl SD BID-QID PRN hemorrhoids 03/18/24 with perineal applicator #60 grams (Proctozone-HC) menthol 0.44 %-zinc oxide 20.6 % 1 appl topical QID PRN skin 03/24/24 topical ointment (Calmoseptine) irritation around anus #113 grams Allergies Allergy/AdvReac Type Severity Reaction Status Date / Time Sulfa (Sulfonamide Allergy Unknown UNKNOWN Verified 03/30/24 12:11 Antibiotics) [SULFA (SULFONAMIDE ANTIBIOTICS)] pitavastatin AdvReac Intermediate Chest Pain Verified 03/30/24 12:11 Review of Systems Review of Systems Positive abdominal pain Yes all other systems are reviewed and are negative PMFSH Past Medical History Attestation statement: The following information was validated with the patient. Medical History Hemorrhoids with complication Hx of atrial fibrillation without current medication FHx: atrial fibrillation Arrhythmia Myocardial infarction Bradycardia Bradyarrhythmia Internal and external hemorrhoids without complication Urinary frequency Paroxysmal atrial fibrillation Atherosclerotic cardiovascular disease Fatty liver Anxiety and depression COVID-19 vaccine series completed Bilateral shoulder bursitis Avascular necrosis of bones of both hips HIV (human immunodeficiency virus infection) Avascular necrosis Hip pain Hypertension HIV (human immunodeficiency virus infection) Surgical History Hx of colonoscopy Hx of shoulder surgery History of rotator cuff surgery History of elbow surgery H/O heart artery stent Hx of tonsillectomy History of appendectomy Family History Family History Father Myocardial infarct Mother Skin cancer Brother Myocardial infarct Paternal Grandfather Myocardial infarct Maternal Grandfather Myocardial infarct Social History Social History Housing: Apartment Alcohol intake: never Patient Tobacco Use Status: Never used Tobacco Tobacco use type: Cigarette Years Smoked: marijuana smoking Smoked in Last 30 Days: No e-Cigarette/Vaping Use: Never Used Second Hand Smoke Exposure: No Use of substances other than those prescribed or required for medical reasons: No Advance Directives: No Advance Directives Information Provided: No Current occupational status: disabled Current occupation: Right Handed Cognitive needs: No Hearing needs: No Vision needs: No Physical Exam ED Vital Signs: Vital Signs - 24 hr 03/30/24 12:06 03/30/24 17:59 03/30/24 20:00 Temperature 97.7 F 98.8 F 98.5 F Pulse Rate 52 54 40 L Respiratory Rate 16 18 18 Blood Pressure 146/108 H 138/78 135/70 Pulse Oximetry 97 98 96 Oxygen Delivery Method Room Air Room Air 03/30/24 22:00 Temperature 97.9 F Pulse Rate 37 L Respiratory Rate 18 Blood Pressure 110/63 Pulse Oximetry 96 Oxygen Delivery Method Room Air BMI result Body Mass Index 34.5 Appearance: Alert. Oriented X3. No acute distress. Eyes: Pupils equal, round and reactive to light. ENT: Pharynx normal. Neck: Normal inspection. Neck supple. No lymph nodes noted. No crepitus CVS: Normal heart rate and rhythm. Pulses normal. Normal S1 and S2 Respiratory: No respiratory distress. Breath sounds normal. No Wheezing. No rales Abdomen: Soft and nontender. No rigidity. No distention. good BS x4 Skin: Skin warm and dry. Normal skin color. Normal skin turgor. Extremities: No lower extremity edema. Neurovascular intact to all extremities. No Lacerations. No Rash Neuro: Oriented X 3. No motor deficit. No sensory deficit. Moving all extermities. No slurred speech Medical Decision Making Medical Decision Making MDM Narrative: Patient presented with abdominal pain mainly over the right side. Has a history of HIV but viral load is undetectable. CD4 count is good per patient. Patient also has a history of atrial fibrillation and is not on anticoagulation. Patient's labs showed a normal white count. Hemoglobin is 18 but it had a history of the same. Patient is electrolytes are consistent with some mild dehydration troponin is negative. TSH is normal. Patient's urine showed no signs of infection he has been compliant with medication. CT scan of the abdomen pelvis was done. I reviewed radiology's reading which was grossly negative for obstruction abscess perforation. Patient while in the emergency department's noted to have a heart rate in the 30s and 40s. We then ordered an EKG. The EKG showed a atrial fibrillation pattern heart rate is proximally 35. QRS is normal QTC is normal there is no acute ST segment elevation. Review patient's old records had a history of something similar in the past. Patient has been followed by Cardiology. Stated that he is currently on 12.5 mg of metoprolol. Explained to patient the need to stay in the hospital for the low heart rate. It was dipping as low as 30. Patient is refused. Stated that he has no symptoms. Stated that this is the same as he always has been. Understood there is a risk of irregular heartbeat there is a risk of passing out there is a risk of . Patient is leaving against medical advice. Differential Diagnosis Differential Diagnoses: The differential diagnosis associated with the presentation includes Bradycardia, atrial fibrillation, electrolyte disturbance, thyroid problem Admission/Observation Consideration of admission/observation: Escalation of care including admission/observation considered Lab Data MDM Lab Attestation statement: I reviewed the patient's lab results. 03/30/24 15:01 03/30/24 15:01 Labs: Lab Results 03/30/24 03/30/24 Range/Units 15:01 20:35 WBC 8.4 (4.8-10.8) X10*3/uL RBC 5.56 (4.60-5.80) X10*6/uL Hgb 18.4 H (14.0-18.0) g/dl Hct 51.8 (42.0-52.0) % MCV 93.2 (80.0-98.0) fL MCH 33.1 H (27.0-33.0) pg MCHC 35.5 (31.0-36.0) g/dl RDW 12.4 (11.0-16.0) % Plt Count 157 L (160-400) X10*3/uL MPV 10.8 (9.4-12.4) fL Immature Gran % (Auto) 0.5 H (0.0-0.4) % Neut % (Auto) 65.8 (45-73) % Lymph % (Auto) 24.7 (20-40) % [place] % (Auto) 7.3 (2-11) % Eos % (Auto) 1.1 (0-4) % Baso % (Auto) 0.6 (0-2) % Lymph # (Auto) 2.1 (1.2-4.9) X10*3/uL [place] # (Auto) 0.6 (0.1-1.2) X10*3/uL Eos # (Auto) 0.1 (0.0-0.4) X10*3/uL Baso # (Auto) 0.1 (0.0-0.2) X10*3/uL Abs Immat Gran (auto) 0.04 H (0.00-0.03) X10*3/uL Absolute Neuts (auto) 5.5 (2.0-8.3) x10*3/uL Absolute Nucleated RBC 0.000 (0.0-0.012) X10*3/uL Nucleated RBC % (auto) 0.0 (0.0-0.2) /100WBC PT 12.4 (10.9-12.4) SEC INR 1.1 (0.9-1.1) Sodium 140 (135-145) mmol/L Potassium 4.5 (3.3-5.1) mmol/L Chloride 107 (96-108) mmol/L Carbon Dioxide 23 (22-29) mmol/L Anion Gap 15 (12-20) BUN 21 H (9-16) mg/dL Creatinine 1.25 (0.5-1.4) mg/dL Estim Creat Clear Calc 70.2 Estimated GFR 59 Random Glucose 80 (60-115) mg/dL Calcium 9.7 D (8.4-10.2) mg/dL Magnesium 2.3 (1.6-2.6) mg/dL Total Bilirubin 0.7 (0.0-1.0) mg/dL Direct Bilirubin 0.2 (0.0-0.5) mg/dL AST 47 H (5-37) U/L ALT 43 H (0-40) U/L Alkaline Phosphatase 40 (39-117) U/L Troponin I High Sens 4.3 (<3.5-35.0) ng/L Total Protein 7.7 (6.5-8.0) g/dL Albumin 4.7 (3.5-5.0) g/dL Lipase 13 (8-78) U/L TSH 0.81 (0.32-4.0) uIU/mL Urine Color Yellow Urine Appearance Clear Urine pH 5.5 (5.0-9.0) Ur Specific [place] 1.020 (1.005-1.025) Urine Protein Negative (Neg-Trace) mg/dL Urine Glucose (UA) Negative (Negative) mg/dL Urine Ketones Trace (Negative) mg/dL Urine Blood Negative (Negative) Urine Nitrite Negative (Negative) Ur Leukocyte Esterase Negative (Negative) Independent Interpretation I performed an independent interpretation of an: EKG (Atrial fibrillation heart rate was [address] segment elevation) Radiology Impression Discussion of test interpretation with radiology: I have reviewed the radiologist's reading. External Record Review External record reviewed: Inpatient record and Office record Chronic Conditions HIV, atrial fibrillation Social Determinants Patient?s care significantly limited by Social Determinants of Health including: Problems related to primary support group Medications Administered Discontinued Medications Generic Name Dose Route Start Last Admin Trade Name Freq PRN Reason Stop Dose Admin Iohexol 85 ml 03/30/24 21:35 03/30/24 21:35 Iohexol 350 Mg/Ml 100 Ml Infus..Btl IV 03/30/24 21:36 85 ml ONCE ONE Administration Discharge Plan Discharge Clinical Impression: Abdominal pain, Atrial fibrillation, Bradycardia Patient Disposition: Left Against Medical Advice Instructions: A-fib (Atrial Fibrillation) (ED), Against Medical Advice (ED), Bradycardia (ED) Prescriptions: No Action Biktarvy 50-200-25 mg tablet 1 tab PO DAILY Qty: 90 1RF valacyclovir 500 mg tablet 500 mg PO BID 90 Days Qty: 180 2RF zolpidem 10 mg tablet 10 mg PO BEDTIME 90 Days Qty: 90 0RF metoprolol succinate 25 mg tablet extended release 24 hr 12.5 mg PO DAILY 90 Days Qty: 45 2RF bupropion HCl 200 mg tablet sustained-release 12 hr 200 mg PO QPM 90 Days Qty: 90 1RF terazosin 5 mg capsule 5 mg PO BEDTIME 90 Days Qty: 90 3RF menthol-zinc oxide [Calmoseptine] 0.44-20.6 % ointment 1 appl topical QID PRN (Reason: skin irritation around anus) Qty: 113 0RF ursodiol 300 mg Capsule 600 mg PO QPM cholecalciferol (vitamin D3) 125 mcg (5,000 unit) Capsule 125 mcg PO QPM nitroglycerin 0.4 mg tablet, sublingual sublingual ursodiol 300 mg capsule 900 mg PO QAM aspirin [Adult Aspirin Regimen] 81 mg tablet,delayed release (DR/EC) 81 mg PO DAILY coenzyme Q10 [CoQ-10] 100 mg capsule 300 mg PO QAM Pifeltro 100 mg tablet 100 mg PO DAILY isosorbide mononitrate 30 mg tablet extended release 24 hr 30 mg PO DAILY hydrocortisone [Proctozone-HC] 2.5 % cream with perineal applicator 1 appl SD BID-QID PRN (Reason: hemorrhoids) Qty: 60 1RF ciprofloxacin HCl 500 mg tablet 500 mg PO BID Qty: 14 0RF Referrals: Po,Chasity Gómez MD [Primary Care Provider] - 03/31/24 Stand Alone Forms: Against Medical Advice Print Language: [place]
--- NOTE | 2024-03-30 19:19 | PC.NURSE ---
iv access established at this time, 18G placed in left forearm, pt awaiting ct scan.
[2024-03-30 20:00] VITALS: BP 135/70; PULSE 40; RESP 18; TEMP 36.9; O2SAT 96
--- NOTE | 2024-03-30 20:10 | MHC.EDTECH ---
This tech took over care of pt at 1900,rounded and introduced self to pt,vitals taken,HR is low,in the 30's, patient states that he lives in that range, provider and nurse made aware,EKG taken per order and signed by provider,patient is refusing to go on the groundwater monitoring technician,RN aware, patient ambulated to the bathroom with a steady gait urine sample collected and sent to lab. call navarro in reach
--- NOTE | 2024-03-30 20:18 | ECG_ITS ---
Test Reason : BRADICARDIAC Blood Pressure : */* mmHG Vent. Rate : 33 BPM Atrial Rate : * BPM P-R Int : * ms QRS Dur : 84 ms QT Int : 494 ms P-R-T Axes : * -40 -12 degrees QTcB Int : 365 ms Atrial fibrillation with slow ventricular response Left axis deviation Pulmonary disease pattern Septal infarct (cited on or before 22-Apr-2015) Inferior infarct (cited on or before 13-Jun-2006) Abnormal ECG When compared with ECG of 16-Apr-2018 11:30, Vent. rate has decreased by 19 bpm Questionable change in initial forces of Anterior leads Referred By: Kesha Terrazas Electronically Signed By: Shashank Kapoor
--- NOTE | 2024-03-30 20:21 | PC.NURSE ---
pt reports he has to take his at home HIV medications, aware, pt able to take at home medications per provider. provider aware of pt HR, pt reports his heart rate is typically low, EKG ordered at this time.
[2024-03-30 20:45] LABS: Appearance Urine Clear; Color Urine Yellow; Glucose Urine UA Negative (Negative); Leukocyte Esterase Urine Negative (Negative); Nitrite Urine Negative (Negative); PH 5.5 (5.0-9.0); Urine Blood Negative (Negative); Urine Ketones Trace mg/dL (Negative); Urine Protein Negative (Neg-Trace)
[2024-03-30 21:15] LABS: Troponin-I High Sensitivity 4.3 ng/L (<3.5-35.0)
[2024-03-30 21:29] LABS: Thyroid Stimulating Hormone 0.81 uIU/mL (0.32-4.0)
[2024-03-30] MEDS: iohexoL 350 MG/ML 100 ML INFUS..BTL 85 ML IV (21:35)
[2024-03-30 22:00] VITALS: BP 110/63; PULSE 37; RESP 18; TEMP 36.6; O2SAT 96
--- NOTE | 2024-03-30 22:23 | PC.NURSE ---
provider aware of pt heart rate, no new orders at this time.
[2024-03-30 22:55] VITALS: BP 110/63; PULSE 37; RESP 18; TEMP 36.6; O2SAT 96
[2024-04-02 17:58] LABS: Absolute CD3 Count 1558 cells/uL (840-3060); Absolute CD4 Count 975 cells/uL (490-1740); Absolute CD8 Count 569 cells/uL (180-1170); Absolute Lymphocytes 1882 cells/uL (850-3900); CD4 CD8 Ratio 1.71 (0.86-5.00); Percent CD3 Cells 83 % (57-85); Percent CD4 Cells 52 % (30-61); Percent CD8 Cells 30 % (12-42)
== END 2024-03-30 22:56 | disposition left against medical advice (07) ==
PROVIDERS: Physician Assistant; Emergency Provider Emergency Medicine Emergency Medical Services; PCP Internal Medicine
DX: R10.2 Pelvic and perineal pain (principal); R10.11 Right upper quadrant pain; I48.91 Unspecified atrial fibrillation; R00.1 Bradycardia, unspecified; Z79.899 Other long term (current) drug therapy
CPT/HCPCS: 36415; 74177; 80048; 80076; 81003; 83690; 83735; 84443; 84484; 85025; 85610; 86359; 86360; 93005; 99284; 99285; Q9967

== ENCOUNTER → 2024-03-30 19:10 | Outpatient (BNV) | payer MEDICARE, MEDICAID, SELFPAY | PROVIDERS: Emergency Provider Emergency Medicine Emergency Medical Services; PCP Internal Medicine; Visit Provider Radiology Diagnostic Radiology | DX: R10.31 Right lower quadrant pain (principal) | CPT/HCPCS: 74177 ==

== ENCOUNTER → 2024-03-30 20:18 | Outpatient (BNV) | payer MEDICARE, MEDICAID, SELFPAY | PROVIDERS: Emergency Provider Emergency Medicine Emergency Medical Services; PCP Internal Medicine; Visit Provider Internal Medicine Cardiovascular Disease | DX: I48.91 Unspecified atrial fibrillation (principal); I27.9 Pulmonary heart disease, unspecified; I25.2 Old myocardial infarction | CPT/HCPCS: 93010 ==

== ENCOUNTER 2024-04-29 09:18 | Outpatient (AMB) | payer MEDICARE, MEDICAID, SELFPAY ==
--- NOTE | 2024-04-29 09:19 | A.OFFVIS_ITS ---
Intake Visit Reasons: 1y/PVR Intake Note: Patient presents today for follow up on: urgency and frequency Urology Medications: terazosin Blood Thinner: aspirin PVR: 63ml's Lining Printer Required: No Accompanied by: Self / Same As Patient Allergies Sulfa (Sulfonamide Antibiotics) [SULFA (SULFONAMIDE ANTIBIOTICS)] Allergy (Unknown, Verified 04/29/24 10:06) UNKNOWN pitavastatin Adverse Reaction (Intermediate, Verified 04/29/24 10:06) Chest Pain Medication List - Last Reconciled 04/29/24 by BRITTNI Medina- aspirin (Adult Aspirin Regimen) 81 mg PO DAILY lcyklljkz-zfwbbqst-jswuayu ala 50-200-25 mg (Biktarvy) 1 tab PO DAILY bupropion HCl SR 200 mg PO QPM 90 days cholecalciferol (vitamin D3) 125 mcg PO QPM coenzyme Q10 (CoQ-10) 300 mg PO QAM doravirine (Pifeltro) 100 mg PO DAILY hydrocortisone 2.5% (Proctozone-HC) 1 appl MA BID-QID PRN isosorbide mononitrate ER 30 mg PO DAILY menthol-zinc oxide 0.44-20.6 % (Calmoseptine) 1 appl topical QID PRN metoprolol succinate ER 12.5 mg (1/2 x 25 mg) PO DAILY 90 days nitroglycerin mg sublingual terazosin 5 mg PO BEDTIME 90 days ursodiol 600 mg PO QPM ursodiol 900 mg PO QAM valacyclovir 500 mg PO BID 90 days zolpidem 10 mg PO BEDTIME 90 days HPI Comments Details: Kip is a pleasant 59-year-old male patient of Dr. Ellison. He has a past medical history of AFib, myocardial infarction, bradyarrhythmia, hemorrhoids, fatty liver, atherosclerotic cardiovascular disease, anxiety, depression, bilateral shoulder bursitis, HIV, avascular necrosis, and hypertension. He presents to the office today for follow-up of his overactive bladder. In discussion with the patient today reports to be doing and feeling well. He denies having had any bothersome urinary issues or concerns since his last office visit here. He does discuss his recent admission to the hospital for ongoing abdominal pain as well as bradycardia. He discusses having had the flu 2 weeks ago. He reports compliance with terazosin as prescribed. In office urinalysis results reviewed with the patient today. PVR 63ml's. When asked patient denies urinary urgency, urinary frequency, incontinence, dysuria, foul- smelling urine, change in urinary stream, hematuria, flank pain, fever and or chills. Patient denies any urological issues or concerns at this time. He denies changes to his urinary habits. He offers no concerns or complaints. PSAs are as follows: 11/14 0.3, 09/16 0.5, 03/21 0.3 He discusses [facility] to discuss podiatry regarding his diagnosis of HIV. He otherwise offers no other issues or concerns at this time. [facility] Medical History Hemorrhoids with complication Hx of atrial fibrillation without current medication FHx: atrial fibrillation Arrhythmia Myocardial infarction Bradycardia Bradyarrhythmia Internal and external hemorrhoids without complication Urinary frequency Paroxysmal atrial fibrillation Atherosclerotic cardiovascular disease Fatty liver Anxiety and depression COVID-19 vaccine series completed Bilateral shoulder bursitis Avascular necrosis of bones of both hips HIV (human immunodeficiency virus infection) Avascular necrosis Hip pain Hypertension HIV (human immunodeficiency virus infection) Surgical History Hx of colonoscopy Hx of shoulder surgery History of rotator cuff surgery History of elbow surgery H/O heart artery stent Hx of tonsillectomy History of appendectomy Family History Father Myocardial infarct Mother Skin cancer Brother Myocardial infarct Paternal Grandfather Myocardial infarct Maternal Grandfather Myocardial infarct Social History Housing: Apartment Alcohol intake: never Patient Tobacco Use Status: Never used Tobacco Tobacco use type: Cigarette Years Smoked: marijuana smoking e-Cigarette/Vaping Use: Never Used Second Hand Smoke Exposure: No Current occupational status: disabled Current occupation: Right Handed Cognitive needs: No Hearing needs: No Vision needs: No Review of Systems Const All systems reviewed & are unremarkable except as noted in HPI and below Reports no additional complaints Eyes Reports no additional complaints ENT Reports no additional complaints Card Reports no additional complaints Resp Reports no additional complaints GI Details: Patient reports follows with GI Dr. Couch. Reports as per HPI Musc Reports no additional complaints Neuro Reports no additional complaints Psych Reports no additional complaints Endo Reports no additional complaints Alex/Lymph Reports no additional complaints Aller/Immun Reports no additional complaints Physical Exam Const General: cooperative, healthy appearing, comfortable, no acute distress, well developed, alert and awake Orientation/consciousness: patient oriented x3 Limitations: no limitations HEENT Head: Yes normal to inspection, Yes normocephalic and Yes atraumatic Ears: hearing grossly normal bilaterally Eyes General: appearance normal, both eyes and all related structures Neck Neck: Yes normal visual inspection and Yes trachea midline Chest Chest palpation & inspection: normal inspection of the chest Resp Effort & Inspection: normal respiratory effort and able to speak in complete sentences Cardio Rate: regular rate GI Inspection: Yes normal to inspection General: Yes no CVA tenderness Back/Spine/Pelvis Back: no CVA tenderness Skin General skin exam: no rashes or lesions noted Neuro General: patient oriented x3 Extrem General: Yes normal to inspection Psych Appearance: grossly normal and well kempt Mental Status: mental status grossly normal Speech and movement: Normal speech and movement present and Clear speech present Affect: normal affect Attitude: cooperative Thought process: Normal thought process present Thought content: Normal thought content present Insight: Fair insight present (Psych) Judgement: Fair judgement present (Psych) Office Procedures Post Void Residual Post Residual Void Post Void Residual (PVR): 63 [id number] Void Residual by ultrasound Results AMB Urinalysis, Automated UA Leukoctes 0 Андрей/uL Last Edit by cisimplejabari Hampton on 04/29/24 09:34 UA Nitrite Last Edit by Elmer Hampton on 04/29/24 09:34 UA Urobilinogen 0.2 mg/dL Last Edit by cisimplejabari Hampton on 04/29/24 09:34 UA Protein 0 mg/dL Last Edit by cisimplejabari Hampton on 04/29/24 09:34 UA pH 6.0 Last Edit by cisimplejabari Hampton on 04/29/24 09:34 UA Blood 0 Edilberto/uL Last Edit by Elmer Hampton on 04/29/24 09:34 UA Specific [place] 1.015 Last Edit by Elmer Hampton on 04/29/24 09:34 UA Ketone Last Edit by Elmer Hampton on 04/29/24 09:34 UA Bilirubin 0 mg/dL Last Edit by Elmer Hampton on 04/29/24 09:34 UA Glucose 0 mg/dL Last Edit by Elmer Hampton on 04/29/24 09:34 Results Reviewed Results Reviewed: Laboratory Last Values Urine pH (Auto) 6.0 04/29/24 09:24 Specific [place] (Auto) 1.015 04/29/24 09:24 Urine Protein (Auto) 0 mg/dL 04/29/24 09:24 Glucose (UA)(Auto) 0 mg/dL 04/29/24 09:24 Urine Blood (Auto) 0 Edilberto/uL 04/29/24 09:24 Urine Bilirubin (Auto) 0 mg/dL 04/29/24 09:24 Urine Urobilinogen (Auto) 0.2 mg/dL 04/29/24 09:24 Leukocyte Esterase (Auto) 0 Андрей/uL 04/29/24 09:24 Assessment & Plan Assessment & Plan (1) Urinary urgency: Code(s): R39.15 - Urgency of urination Category: Medical Plan In office urinalysis results reviewed with the patient today; as noted above. PVR 63 mL. Continue terazosin Patient currently denies any bothersome urinary issues or concerns He reports be happy with current voiding parameters. Recent PSA results reviewed with the patient today; as noted above. Will obtain PSA in 1 year. Follow-up in 1 year with PSA and PVR; or sooner with any issues, concerns, and or questions Orders: Orders AMB Urinalysis Automated Today Z13.9 - Encounter for screening, unspecified AMB Post Void Residual by ultrasound Today R33.9 - Retention of urine, unspecified Prostate Specific Antigen 1 Year R39.15 - Urgency of urination Patient Instructions: The patient had an opportunity to ask questions regarding the treatment plan. All questions were answered. Physical exam, labs, and imaging were discussed and reviewed in detail. As well as risks, benefits, and discussion of treatment choices. No major barriers to understanding were identified. The patient expressed understanding and agreement with the above treatment plan. The patient was made aware they should contact our office by phone for worsening of their current condition, the appearance of new symptoms, or with any questio ns or concerns. Compliance is encouraged with any medications and follow up testing that is ordered. It is a privilege to be allowed the opportunity to participate in? your urological care.? Again, if you have any questions or concerns If you have any questions or concerns please do not hesitate to contact me. The office is [phone]. This note is constructed using voice recognition software. While every effort has been made to ensure accuracy [employer] technical lead senior developer errors may have been included. Yours sincerely, BRITTNI Medina-ANNE-MARIE Coding Level of Care Code Est Pt Level 3 (87911) Diagnoses Urinary urgency R39.15 CPT Codes Post Residual Void - PVR CPT Code: 41096-Jarc Void Residual by ultrasound ([id number])
--- OUTSIDE RECORDS SUMMARY | 2024-04-29 10:22 | XMS_ITS ---
Author Organization [facility] Address [address] [place] [address] Care Team Providers Care Nurse Coordinator Name Role Phone Po Chasity BACON Primary Care Provider Peterson Shah [phone] REASON FOR VISIT Encounters Encounter Location Date Provider Diagnosis [facility] [address] [place] [address] 04/03/2024 Peterson Couch Plan Of Treatment Next Appt Details Provider Name:Peterson Couch , 05/05/2024 10:30:00 AM, [address], [address], [place], [address], Progress Notes * NORA PAINTINGOB:1965 (59 yo M)Acc No.[id number]:04/03/2024 Patient:?MONY PAINTING :1965???Age:59 Y???Sex:Male Address:[address] [place] [id number] * true * Date:? Generated for Printi lyndsay/Sharona/eTransmitting on:?04/29/2024 10:21 AM EST
--- OUTSIDE RECORDS SUMMARY | 2024-04-29 10:22 | XMS_ITS | Clinical Summary ---
Author Organization [facility] [employer] Address [address] [place] [address] Phone Care Team Providers Care Financial Foundations Representative Name Role Phone Chasity Ellison MD Primary Care Provider [phone] Allergies Active Allergy Reactions Criticality Noted Date Comments Sulfa (Sulfonamide Antibiotics) 07/26 Medications isosorbide mononitrate (IMDUR) 30 mg 24 hr tablet Take 1 tablet (30 mg total) by mouth 1 (one) time each day. 11/19/2023 Active doravirine (Pifeltro) 100 mg tablet Take 1 tablet (100 mg total) by mouth 1 (one) time each day. Active nitroglycerin (NITROSTAT) 0.[address] 1 tablet (0.4 mg total) under the tongue every 5 (five) minutes if needed for chest pain. 01/29/2023 Active metoprolol succinate (TOPROL-XL) 25 mg 24 hr tablet Take 0.5 Tablets by mouth daily. Active aspirin (ASPIR-81 ORAL) Take 81 mg by mouth daily. 06/07/2015 Active buPROPion SR (WELLBUTRIN SR) 200 mg 12 hr tablet Take 200 mg by mouth daily. 01/07/2012 Active coenzyme Q-10 100 mg capsule 300 mg daily. Active terazosin (HYTRIN) 5 mg capsule Take 5 mg by mouth daily. 01/07/2012 Active ursodioL (ACTIGALL) 300 mg capsule Take by mouth. Take 3 tablets im AM and take 2 tablets in the PM Active valACYclovir (VALTREX) 500 mg tablet Take 500 mg by mouth as needed. Active zolpidem (AMBIEN) 10 mg tablet Take 10 mg by mouth daily. 01/07/2012 Active cholecalciferol (VITAMIN D-3) 25 mcg (1,000 unit) tablet Take 1 tablet (1,000 Units total) by mouth 1 (one) time each day. Active bictegravir-emtr icitabine-tenofo vir alafenamide (Biktarvy) 50-200-25 mg per tablet Take 1 tablet by mouth 1 (one) time each day. Active Active Problems Problem Noted Date Diagnosed Date Chest pain 02/05/2023 Assessment & Plan (04/09/2024 4:49 PM EST): Longstanding persistent atrial fibrillation 10/27 Overview (04/08/2024): Persistent Afib since 2021 without Sx. CHADSVasc2 score of 1.0. Discussed in past with pt and treated with aspirin. Occasional pauses, chiefly nocturnal seen on holter. Mar 2024 presentation to [facility], found to have AF with HR 35, without evident Sx. Assessment & Plan (04/09/2024 4:49 PM EST): Orders: ECG 12 lead Cardiac holter monitor (<= 48 hours); Future Bradycardia 08/05/2020 Overview (04/03/2024): Last Assessment & Plan: The patient has a history of bradycardia. He is tolerating metoprolol 12.5 mg orally daily. Assessment & Plan (04/09/2024 4:49 PM EST): Orders: Cardiac holter monitor (<= 48 hours); Future Coronary artery disease invo lving anvik coronary artery of anvik heart without angina pectoris 08/05/2020 Overview (04/03/2024): Last Assessment & Plan: The patient has a history of coronary artery disease status post drug-eluting stent to the right coronary artery in the . The patient's last ischemic evaluation was April 2018 where he underwent an exercise nuclear stress test and showed no defect to suggest ischemia. The patient has been reporting episodes of dull intermittent chest discomfort which improves with nitroglycerin. He denies any shortness of breath. At this point, I recommend the patient undergo an exercise nuclear stress test to evaluate for ischemia as a cause of his symptoms. I also recommend the patient start isosorbide mononitrate 30 mg orally daily for antianginal therapy. We discussed side effects. Finally, the patient will undergo an updated echocardiogram to evaluate his LV function and assess for any valvular disease as a cause. I will notify the patient of the results as soon as they become available. He will continue on metoprolol and aspirin as prescribed. We also discussed that the patient should be on statin therapy given his history of coronary artery disease. He had been hesitant in the past given his history of HIV. He recently underwent lab work including liver panel yesterday with his provider who manages his HIV and he plans on checking with her regarding starting statin therapy. We also discussed that the patient could be started on ezetimibe as well for cholesterol control. He did have a fasting lipid panel in August which showed an LDL of 86. We reviewed nitroglycerin administration instructions. Patient advised to seek emergency medical attention by calling 911 if they were to develop severe dyspnea, chest pain that did not resolve with rest or nitroglycerin, or if they were to faint. Assessment & Plan (04/09/2024 4:49 PM EST): Orders: ECG 12 lead Paroxysmal atrial fibrillation 08/05/2020 Overview (04/03/2024): Last Assessment & Plan: The patient has a history of atrial fibrillation. He denies any symptoms of atrial fibrillation including palpitations. He underwent 24-hour Holter monitor February 2021 which showed atrial fibrillation noted throughout the recording with an average heart rate of 59 bpm and rare PVCs. It also showed 73 pauses greater than 3 seconds mostly during sleep hours. We discussed his atrial fibrillation today. His heart rate is well-controlled today at a rate of 62 bpm. He continues on rate control therapy with metoprolol 12.5 mg orally daily. Patient has a [id number] score of 1. He continues on aspirin. We did discuss that the patient may benefit from a sleep study given the results of his Holter monitor. The patient does not want to complete this right now and would like to complete the stress test prior to any other testing. At this point, we will continue current therapies. Encounters Date Type Department Care Team Description 04/15/2024 8:00 AM EST Ancillary Procedure [facility] [address] [place] [address] Bradycardia; Longstanding persistent atrial fibrillation (CMS/HCC) 04/09/2024 1:00 PM EST Office Visit [facility] [address] [place] [address] Lindy Perdomo MD Coronary artery disease involving anvik coronary artery of anvik heart without angina pectoris (Primary Dx); Precordial pain; Bradycardia; Longstanding persistent atrial fibrillation (CMS/HCC) 04/02/2024 Telephone [facility] [address] [place] [address] Lindy Perdomo MD Hospital Follow-up 04/02/2024 Telephone [facility] [address] [place] [address] Lindy Perdomo MD [facility] Medical Records from Last 3 Months Social History Tobacco Use Types Packs/Day Years Used Date Smoking Tobacco: Never Smokeless Tobacco: Never Alcohol Use Standard Drinks/Week Comments Not Currently 0 (1 standard drink = 0.6 oz pur e alcohol) Sex and Gender Information Value Date Recorded Sex Assigned at Not on file Legal Sex Male 5:06 PM EST Gender Identity Not on file Sexual Orientation Not on file Obstetrics History Last Filed Vital Signs Vital Sign Reading Time Taken Comments Blood Pressure 110/76 04/09/2024 12:55 PM EST Pulse 62 04/09/2024 12:55 PM EST Temperature - - Respiratory Rate - - Oxygen Saturation 96% 04/09/2024 12:55 PM EST Inhaled Oxygen Concentration - - Weight 79.8 kg (176 lb) 04/09/2024 12:55 PM EST Height 167.6 cm (5' 6 ) 04/09/2024 12:55 PM EST Body Mass Index 28.41 04/09/2024 12:55 PM EST Plan of Treatment Upcoming Encounters Date Type Department Care Team (Late st Contact Info) Description 08/11/2024 10:10 AM EDT Office Visit [facility] [address] [facility] [address] [facility] [place] [address] George Cali NP [address] [place] [address] [address] [place] [address] Health Maintenance Due Date Last Done Comments Meningococcal ACWY Vaccine (1 - Risk 2-dose series) 1967 MMR Vaccines (1 of 2 - Risk 2-dose series) 1983 DTaP,Tdap,and Td Vaccines (1 - Tdap) 1984 Hepatitis A Vaccines (1 of 2 - Risk 2-dose series) 1984 Pneumococcal Vaccine: 50+ Years (2 of 2 - PPSV23) 06/13/2021 04/18/2021 Pneumococcal Vaccine: Pediatrics (0 to 5 Years) and At-Risk Patients (6 to 64 Years) (2 of 2 - PPSV23) 06/13/2021 04/18/2021 Hepatitis B Vaccines (3 of 3 - 19+ 3-dose series) 09/18/2021 04/18/2021, 03/21/2021 Cholesterol Screening (Lipid Panel) 02/03/2022 Colorectal Cancer Screening: Colonoscopy 02/03/2022 Depression Screening 02/03/2022 Hepatitis C Screening 02/03/2022 Social Influencers of Health Screening 02/03/2022 Hypertension/CHF/CAD Annual BMP Blood Test 02/04/2022 COVID-19 Vaccine ( season) 2023 12/29/2022, 02/10/2022, 05/25/2021, Additional history exists RSV Immunization Patients 60+ Years Old (1 - 1-dose 75+ series) 2040 Zoster Vaccines Completed 06/21/2022, 04/26/2022 Influenza Vaccine Completed 12/23/2023, , 12/22/2021, Additional history exists HIB Vaccines Aged Out No longer eligi ble based on patient's age to complete this topic HPV Vaccines Aged Out No longer eligi ble based on patient's age to complete this topic IPV Vaccines Aged Out No longer eligi ble based on patient's age to complete this topic Meningococcal B Vacine Aged Out No lo nger eligible based on patient's age to complete this topic RSV Immunization Patients Under 20 months Aged Out No longer eligible based on patient's age to complete this topic Varicella Vaccines Aged Out No longer eligible based on patient's age to complete this topic Procedures Procedure Name Priority Date/Time Associated Diagnosis Comments CARDIAC HOLTER MONITOR (REPORT GENERATED IN HOUSE) Routine 04/15/2024 7:52 AM EST Bradycardia Longstanding persistent atrial fibrillation (CMS/HCC) ECG 12-LEAD Routine 04/09/2024 1:07 PM EST Coronary artery disease involving anvik coronary artery of anvik heart without angina pectoris Longstanding persistent atrial fibrillation (CMS/HCC) from Last 3 Months Results * CARDIAC HOLTER MONITOR (REPORT GENERATED IN HOUSE) (04/15/2024 7:52 AM EST) Anatomical Region Laterality Modality Cardiac Diagnost ic Impressions 04/16/2024 5:51 PM EST 1: Atrial Fibrillation/Flutter noted througout recording. 2: Ventricular rate range was 32-113 BPM with an average of 59 BPM. 3: Occasional PVCs and aberrantly conducted beats. Rare couplets, ventricular bigeminy, and one 4-beat ventricular run with aberrancy. 4: Two pauses over 3.0 seconds, longest R-R was 3.1 seconds at 5:32 AM. 5: Diary returned with no symptoms noted. Narrative 04/16/2024 5:51 PM EST [facility] DEPARTMENT [address] [place] [address], [id number], [place] [address] TEL: FAX: Type of Test: 24 Hour Holter Monitor Date of Test: 04/15/2024 Ordering Provider: Lindy Perdomo MD Reason for Test: Longstanding Persistent Atrial Fibrillation, Bradycardia Lindy Perdomo MD [facility] PROCEDURES Final Result * ECG 12 lead (04/09/2024 1:07 PM EST) Ventricular Rate ECG 52 BPM GEMUSE Atrial Rate 45 BPM GEMUSE QRS Duration 86 ms GEMUSE Q-T Interval 404 ms GEMUSE QTc 375 ms GEMUSE R [place] 134 degrees GEMUSE T [place] -14 degrees GEMUSE ECG Interpretation Atrial fibrillation with slow ventricular response Left posterior fascicular block Cannot rule out Inferior infarct , age undetermined Abnormal ECG No previous ECGs available Confirmed by LINDY PERDOMO ([id number]) on 04/09/2024 3:46:20 PM GEMUSE 04/09/2024 1:07 PM EST 04/09/2024 3:46 PM EST us Lindy Perdomo MD ECG ORDERABLES Final Result GEMUSE from Last 3 Months Insurance MEDICAID - [place] MEDICARE Care Teams Financial Foundations Representative Relationship Specialty Start Date End Date Chasity Ellison MD [address] [place] [address] [address] [facility] [place] [address] PCP - General 01/07/12
--- OUTSIDE RECORDS SUMMARY | 2024-04-29 10:22 | XMS_ITS | Encounter Summary ---
Author Organization [facility] Address [address] [place] [address] Care Team Providers Care Stereo Operator Name Role Phone Chasity Ellison MD Primary Care Provider [phone] Reason for Visit * Reason Onset Date Comments [facility] Medical Records 04/02/2024 Encounter Details Date Type Department Care Team ([facility] st Contact Info) Description 04/02/2024 Telephone [facility] Cardiology [address] [phone] Noe Alejo MD [address] [place] [phone] [facility] Medical Records Social History Tobacco Use Types Packs/Day Years Used Date Smoking Tobacco: Never Smokeless Tobacco: Never Alcohol Use Standard Drinks/Week Comments Not Currently 0 (1 standard drink = 0.6 oz pur e alcohol) Sex and Gender Information Value Date Recorded Sex Assigned at Not on file Legal Sex Male 5:06 PM EST Gender Identity Not on file Sexual Orientation Not on file documented as of this encounter Progress Notes * Diazmay Razo - 04/02/2024 8:39 AM EST Patient had went to [facility] for abdominal pain on 03/31/24 and had a echo done. He got his results back and the referring provider Dr Kesha Terrazas had saw some concerns with his heart and wanted the patient to talk to his endocrinology physician so Kip made a appointment to come in. Can we try to get the results for the echo from [facility] for the patients appointment on 04/09/24. documented in this encounter Plan of Treatment Upcoming Encounters Date Type Department Care Team (Late st Contact Info) Description 08/11/2024 10:10 AM EDT Office Visit [facility] [address] [place] [address] [address] [place] [address] George Cali NP [address] [place] [address] [address] [place] [address] documented as of this encounter Visit Diagnoses Not on filedocumented in this encounter Care Teams Stereo Operator Relationship Specialty Start Date End Date Chasity Ellison MD [address] [place] [address] [address] [facility] [place] [address] PCP - General 01/07/12 documented as of this encounter
--- OUTSIDE RECORDS SUMMARY | 2024-04-29 10:22 | XMS_ITS | Patient Health Record ---
Author Organization [facility] Address [address] [place] [address] Care Team Providers Care Hay Rake Operator Name Role Phone Chasity Ellison MD Primary Care Provider Peterson Shah Unavailable [phone] Allergies Allergen (clinical drug ingredient) Drug/Non Drug Allergy documented on EMR Reaction Allergy Type Onset Date Status Substance with sulfonamide structure and antibacterial mechanism of action (substance) Sulfa (uncoded) Unknown Allergy Active Results Component Value Reference Range Notes US abdomen comp w elastograp hy Reviewed date:11/14/2023 06:47:22 PM Interpretation: Performing Lab: Notes/Report: [address] [address] Ultrasound Report Signed Patient: Mony Painting MR#: [id number] : 1965 Acct:[id number] Age/Sex: 58 / M ADM Date: 05/08/23 Loc: HO.US Attending Dr: Peterson Couch MD Ordering Physician: Peterson Couch Date of Service: 05/08/23 Procedure(s): US abdomen comp w elastography Accession Number(s): [id number] cc: Chasity Ellison MD; Peterson Couch EXAMINATION: US COMPLETE ABDOMEN WITH LIVER ELASTOGRAPHY CLINICAL INFORMATION: Fatty liver. Liver fibrosis. COMPARISON: Ultrasound imaging from 12/22/2019 and 04/13/2021. TECHNIQUE: Real-time imaging of the abdominal viscera. Noninvasive ultrasound liver fibrosis assessment is performed using [employer]idelia ElastPQ point quantification shear wave elastography (2D-SWE) with a C5-2 MHz transducer. Multiple elastography samples are obtained. FINDINGS: PANCREAS: Normal. ABDOMINAL AORTA: The proximal, middle, and distal aortic segments are normal in caliber. INFERIOR VENA CAVA: Visualized portions are normal. LIVER: Liver has normal size and contour. The parenchyma is hyperechoic and mildly heterogeneous, which suggests regions of relative fat sparing. No evidence of focal lesion or intrahepatic ductal dilatation. The right lobe measures approximately 13.5 cm in length. The left lobe measures 10.8 cm in length. Portal flow is normal. Shear wave liver elastography median stiffness is 1.61 m/s (reference: normal median stiffness is 1.3 m/s or less). IQR/median stiffness to assess sampling precision is 0.11 (reference: good quality data set is IQR/median stiffness of 0.15 or less). GALLBLADDER: Normal. The gallbladder is physiologically distended without evidence of stones, sludge, polyps, wall thickening or pericholecystic fluid. COMMON BILE DUCT: Normal in caliber measuring 0.5 cm in diameter. RIGHT KIDNEY: The kidney measures 11.6 cm in length. No nephrolithiasis or hydronephrosis. 2.1 cm simple cyst of the lower pole. No imaging follow-up is recommended for a simple cyst. LEFT KIDNEY: 11.3 cm in length. No nephrolithiasis or hydronephrosis. A few small simple cysts are detected. No renal imaging follow-up is recommended for simple cysts. SPLEEN: Normal. The spleen measures 11.4 cm in maximum dimension. FREE FLUID: None. US/US abdomen comp w elastography IMPRESSION: * Liver is hyperechoic, as seen on prior ultrasound imaging exams, and findings are suggestive of steatosis. There is no evidence of liver mass. * The shear wave liver elastography reveals a median stiffness of 1.61 m/s (reference: normal median stiffness is 1.3 m/s or less). In the absence of other known clinical signs, this rules out compensated advanced chronic liver disease. REFERENCE: Society of Radiologists in Ultrasound Liver Stiffness Thresholds (2020): LIVER STIFFNESS THRESHOLDS: *Liver Stiffness equal or less than 1.3 m/s: High probability of being normal. *Liver Stiffness less than 1.7 m/s: In the absence of other known clinical signs, rules out compensated advanced chronic liver disease. *Liver Stiffness 1.7-2.1 m/s: Suggestive of compensated advanced chronic liver disease but need further test for confirmation. *Liver Stiffness over 2.1 m/s: Rules in compensated advanced chronic liver disease. *Liver Stiffness over 2.4 m/s: Suggestive of clinically significant portal hypertension. QUALITY OF DATA SET: *IQR/Median value equal or less than 0.15 implies a quality data set. *IQR/Median value over 0.15 implies a poor quality data set. OTHER CONSIDERATIONS: The stage of liver fibrosis may be overestimated in the setting of acute hepatitis, liver inflammation, elevated liver function tests, hepatic vascular congestion, obstructive cholestasis, non-fasting state, and infiltrative diseases such as amyloidosis and lymphoma. In some patients with NAFLD, the liver stiffness thresholds for compensated advanced chronic liver disease may be lower. In causes other than viral hepatitis and NAFLD, liver stiffness thresholds are not well established. Dictated By: Zuhair Castillo MD Signed By: <Electronically signed by Zuhair Castillo MD in OV> 05/17/23 0859 DD/ 0811 TD/TT: Terminal Computer Operator: [place] [id number] Ultrasound Report Signed Patient: Aliyah Painting MR#: [id number] : 1965 Acct:[id number] Age/Sex: 58 / M ADM Date: 05/08/23 Loc: HO.US Attending Dr: Peterson Couch MD Ordering Physician: Peterson Couch Date of Service: 05/08/23 Procedure(s): US abd omen comp w elastography Accession Number(s): [id number] cc: Chasity Ellison MD ; Peterson Couch EXAMINATION: US COMPLETE ABDOMEN WITH LIVER ELASTOGRAPHY CLINICAL INFORMATION: Fatty liver. Liver fibrosis. COMPARISON: Ultrasound imaging f rom 12/22/2019 and 04/13/2021. TECHNIQUE: Real-time imaging of the abdominal viscera. Noninvasive ultrasound liver fibrosis asses sment is performed using Fidelia ElastPQ point quantification shear wave elastography (2D-SWE) with a C5-2 MHz transducer. Multiple elastography samples are obtained. FINDINGS: PANCREAS: Normal. ABDOMINAL AORTA: The proximal, middle, and distal aortic segments are normal in caliber. INFERIOR VENA CAVA: Visualized portions are normal. LIVER: Liver has nor mal size and contour. The parenchyma is hyperechoic and mildly heterogen eous, which suggests regions of relative fat sparing. No evidence of focal lesion or intrahepatic ductal dilatation. The right lobe measu res approximately 13.5 cm in length. The left lobe measures 10.8 cm in length. Portal flow is normal. Shear wave liver keira stography median stiffness is 1.61 m/s (reference: normal median stiffn ess is 1.3 m/s or less). IQR/median stiffness to assess sampling precision is 0.11 (reference: good quality data se t is IQR/median stiffness of 0.15 or less). GALLBLADDER: Normal. The gallbladder is physiologically distended without evidence of stones, sludge, polyps, wall thickening or pericholecystic fluid. COMMON BILE DUCT: No rmal in caliber measuring 0.5 cm in diameter. RIGHT KIDNEY: The ki dney measures 11.6 cm in length. No nephrolithiasis or hydronephrosis. 2 .1 cm simple cyst of the lower pole. No imaging follow-up is recomme nded for a simple cyst. LEFT KIDNEY: 11.3 cm in length. No nephrolithiasis or hydronephrosis. A few small simple cys ts are detected. No renal imaging follow-up is recommended for simple cysts. SPLEEN: Normal. The spleen measures 11.4 cm in maximum dimension. FREE FLUID: None. U S/US abdomen comp w elastography IMPRESSION: * Liver is hyperecho ic, as seen on prior ultrasound imaging exams, and findings are suggest dimitris of steatosis. There is no evidence of liver mass. * The shear wave ruby er elastography reveals a median stiffness of 1.61 m/s (reference: norm al median stiffness is 1.3 m/s or less). In the absence of other kno wn clinical signs, this rules out compensated advanced chronic liver disease. REFERENCE: Society of Radiologi sts in Ultrasound Liver Stiffness Thresholds (2020): LIVER STIFFNESS THRESHOLDS: *Liver Stiffness equ al or less than 1.3 m/s: High probability of being normal. *Liver Stiffness les s than 1.7 m/s: In the absence of other known clinical signs, rule s out compensated advanced chronic liver disease. *Liver Stiffness 1.7 -2.1 m/s: Suggestive of compensated advanced chronic liver diseas e but need further test for confirmation. *Liver Stiffness ove r 2.1 m/s: Rules in compensated advanced chronic liver disease. *Liver Stiffness ove r 2.4 m/s: Suggestive of clinically significant portal hypertension. QUALITY OF DATA SET: *IQR/Median value eq ual or less than 0.15 implies a quality data set. *IQR/Median value ov er 0.15 implies a poor quality data set. OTHER CONSIDERATIONS: The stage of liver f ibrosis may be overestimated in the setting of acute hepatitis, ruby er inflammation, elevated liver function tests, hepatic vascular con gestion, obstructive cholestasis, non-fasting state, and infiltrat dimitris diseases such as amyloidosis and lymphoma. In some patients with N AFLD, the liver stiffness thresholds for compensated advanced chronic liver disease may be lower. In causes other than viral hep atitis and NAFLD, liver stiffness thresholds are not well established. Dictated By: Zuhair Castillo MD Signed By: <Leonard lamar signed by Zuhair Castillo MD in OV> 05/17/2359 DD/ 0 TD/TT: Terminal Computer Operator: Reason For Referral No Information Medications Medication SIG (Take, Route, Frequency, Duration) Notes Start Date End Date Status Omeprazole 20 MG 1 capsule 30 minutes before morning meal Orally Once a day for 30 day(s) 05/21/2019 Active Ursodiol 300 MG TAKE 3 CAPSULE BY MOUTH EVERY MORNING AND 2 CAPSULE EVERY EVENING for 90 Active Pifeltro Active CoQ-10 300mg 1 capsule with a cherry l Orally Once a day Not-Taking Terazosin HCl 5 MG 1 capsule Orally Onc e a day Active Valtrex 500 MG 2 tablets Orally 1 p o qd Active Ambien 10 MG 1 tablet at bedtime as needed Orally Once a day Active Wellbutrin Active Aspirin 81 MG 1 tablet Orally Once a day Active Metoprolol Tartrate 50 MG 1 tablet Orall y 1 po qd Active Nitroglycerin prn Active Vitamin D 2000 UNIT 1 tablet Orally Once a day for 30 day(s) Active Immunizations Vaccine Route Administration Date Status Comme nts Flu vaccine no Preserv 3 and > Unknown 12/02/2013 Admin istered Influenza Unknown 10/26/2017 Administered Influenza Unknown 10/26/2018 Administered Influenza Unknown 10/26/2020 Administered Social History Alcohol Screen Question Answer Notes Did you have a drink containing alcohol in the p ast year? No Points 0 Interpretation Negative Section Notes: Nonsmoker; only ocasional al cohol Nonsmoker; only ocasional al cohol when he goes on a cruise Nonsmoker; only occasional a lcohol when he goes on a cruise Nonsmoker; only occasional a lcohol when he goes on a cruise Nonsmoker; only occasional a lcohol when he goes on a cruise Nonsmoker; only occasional a lcohol. Nonsmoker; only occasional a lcohol. Nonsmoker; only occasional a lcohol. Nonsmoker; only occasional a lcohol. Nonsmoker; only occasional a lcohol. Problems Problem Type SNOMED Code ICD Code Onset Dates Problem Status W/U Status Risk Notes Problem 96334223 Epigastric pain (R10.13) Active confirmed Problem 016877240 Encounter for screening for malignant neoplasm of colon (Z12.11) Active confirmed Problem 273733618 History of adenomatous polyp of colon (Z86.010) Active confirmed Problem History of polyp of colon (situation) (756801022) Personal history of colonic polyps (Z86.010) Active confirmed Problem Diverticular disease of colon (132378767) Diverticulosis of large intestine without perforation or abscess without bleeding (K57.30) Active confirmed Problem 814009097 Left upper quadrant pain (R10.12) Active confirmed Problem Screening for malignant neoplasm of rectum (526596358) Encounter for screening for malignant neoplasm of rectum (Z12.12) Active confirmed Problem 933143244 Elevated liver function tests (R79.89) Active confirmed Problem 501025016 Fatty liver (K76.0) Active confirmed Problem 37179808 Iron excess (E83.19) Active confirmed Problem 31359022 Rectal pain (K62.89) Active confirmed Problem 62619775 Liver fibrosis (K74.0) Active confirmed Problem 286475676 Steatohepatitis, nonalcoholic (K75.81) Active confirmed Problem 31429468 Liver fibrosis (K74.00) Active confirmed Encounters Encounter Location Date Provider Diagnosis [facility] [address] [place] [address] 04/03/2024 Peterson Couch Plan Of Treatment Pending Test Test Name Order Date LIVER PROFILE 01/11/2017 LIVER PROFILE 05/05/2021 LIVER PROFILE 11/06/2011 LIVER PROFILE 11/09/2015 LIVER PROFILE 02/01/2023 LIVER PROFILE 06/10/2014 CBC w DIFF 01/11/2017 CBC w DIFF 05/05/2021 CBC w DIFF 11/09/2015 CBC w DIFF 02/01/2023 PROTHROMBIN TIME (PT, INR) 11/24/2019 PROTHROMBIN TIME (PT, INR) 05/05/2021 PROTHROMBIN TIME (PT, INR) 11/09/2015 CLOSTRIDIUM DIFF TOXIN A&B (C DIFF) 12/27 STOOL WBC 01/22/2011 ALPHA-FETOPROTEIN,TUMOR MARKER 3 ALPHA-FETOPROTEIN,TUMOR MARKER 6 ALPHA-FETOPROTEIN,TUMOR MARKER 5 ALPHA-FETOPROTEIN,TUMOR MARKER 9 ALPHA-FETOPROTEIN,TUMOR MARKER 2 ALPHA-FETOPROTEIN,TUMOR MARKER 0 ALPHA-FETOPROTEIN,TUMOR MARKER 4 CULTURE, STOOL 01/22/2011 US ABD 11/24/2019 Alpha Fetoprotein 05/05/2021 Liver Fibrosis Pnl 05/05/2021 US abdomen comp w elastography 3 US abdomen comp w elastography 3 Future Test Test Name Order Date COLONOSCOPY 11/09/2015 COLONOSCOPY 05/05/2021 Next Appt Details Provider Name:Peterson Couch , 05/05/2024 10:30:00 AM, [address] [place] [address], [address], [place], [address], Insurance Providers Payer Name Payer Address Payer Phone Subscriber Number Group Number Insured Name Patient Relationship to Insured Coverage Start Date Coverage End Date SMITH GUILLENA/KRISTI Person MEDICARE [employer] MEDICARE [address] [address] [place] [phone] [id number] MONY PAINTING Self - patient is the insured MEDICAID OF [facility] [address] [place] [address] [id number] MONY PAINTING Self - patient is the insured Medical (General) History Medical History History ICD Code Colonoscopy 06/28/2010-hyperplastic poly p--limited prep HIV infection > 20 yrs ago f rom unprotected heterosexual sex--sees Dr. Saavedra Fatty liver-liver biopsy in 01/2000 with bridging fibrosis and narked steatohepatitis --normal AFP level and neg abd U/S in 11/2011; liver ultrasound in October of 2013 showing no significant abnormalities Sinusitis Denies DM,CVA,Lung disease,renal disease CAD-WA in [address]---diagnosed with intermittent A.fib--sees Dr. Simmons at [facility] Gout BPH Colonoscopy 02/2016--1 tubula r adenoma removed, neg. CT colonography that same day due to inability to reach the cecum Negative colonoscopy in 02/2022 Scheduled for cardiac cath on 02/13/2023 at [facility] Surgical History Surgery Date(Month/Year) Appendectomy Right elbow Laser prostate surgery August 03, 2015 Right rotator cuff
--- OUTSIDE RECORDS SUMMARY | 2024-04-29 10:22 | XMS_ITS | Encounter Summary ---
Author Organization [facility] Address [address] [place] [address] Care Team Providers Care Account Clerk Name Role Phone Chasity Ellison MD Primary Care Provider [phone] Reason for Visit * Reason Comments 24 Hour Holter Monitor * Cardiac Stress Testing (Routine) - Closed Specialty Diagnoses / Procedures Referred By Contac t Referred To Contact Cardiology Diagnoses Bradycardia Longstanding persistent atrial fibrillation (CMS/HCC) Procedures Cardiac holter monitor (<= 48 hours) MD ECG EXTERNAL UP TO 48 HOURS RECORDING MD ECG EXTERNAL < 48 HOURS CONTINUOUS RECORDING/STORAGE R&I BY A PHYS/QHP MD EXTERNAL ECG UP TO 48 HRS INCL RECORDING SCANNING ANLYS W REPORT Noe Alejo MD [address] [place] [address] [place] [address] Phone: tel: fax: [facility] Referral ID Status Reason Start Date Expiration Date Visits Re quested Visits Authorized [id number] Closed 04/09/2024 04/09/2025 1 1 Encounter Details Date Type Department Care Team (Latest Contact Info) Description 04/15/2024 8:00 AM EST Ancillary Procedure [facility] [address] [place] [address] Bradycardia; Longstanding persistent atrial fibrillation (CMS/HCC) Social History Tobacco Use Types Packs/Day Years [...] on file documented as of this encounter Plan of Treatment Upcoming Encounters Date Type Department Care Team (Late st Contact Info) Description 08/11/2024 10:10 AM EDT Office Visit [facility] [address] [place] [address] George Cali NP [address] [place] [address] [address] [place] [address] documented as of this encounter Procedures Procedure Name Priority Date/Time Associated Diagnosis Comments CARDIAC HOLTER MONITOR (REPORT GENERATED IN HOUSE) Routine 04/15/2024 7:52 AM EST Bradycardia Longstanding persistent atrial fibrillation (CMS/HCC) documented in this encounter Results * CARDIAC HOLTER MONITOR (REPORT GENERATED [...] symptoms noted. Narrative 04/16/2024 5:51 PM EST [facility] [address] [facility], [id number], [place] [address] TEL: FAX: Type of Test: 24 Hour Holter Monitor Date of Test: 04/15/2024 Ordering Provider: Noe Alejo MD Reason for Test: Longstanding Persistent Atrial Fibrillation, Bradycardia us Noe Alejo MD [facility] PROCEDURES Final Result documented in this encounter Visit Diagnoses Diagnosis Bradycardia Other specified cardiac dysrhythmias Longstanding persistent atrial fibrillation (CMS/HCC) documented in this encounter Care Teams Account Clerk Relationship Specialty Start Date End Date Po, Lorenver, MD [address] [place] [address] [address] [facility] [place] [address] PCP - General 01/07/12 documented as of this encounter
--- OUTSIDE RECORDS SUMMARY | 2024-04-29 10:22 | XMS_ITS | Encounter Summary ---
Author Organization [facility] Address [address] [place] [address] Care Team Providers Care Polymer Engineer Name Role Phone Chasity Ellison MD Primary Care Provider [phone] Reason for Referral * Cardiac Stress Testing (Routine) - Closed Specialty Diagnoses / Procedures Referred By Contac t Referred To Contact Cardiology Diagnoses Bradycardia Longstanding persistent atrial fibrillation (CMS/HCC) Procedures Cardiac holter monitor (<= 48 hours) [place] ECG EXTERNAL UP TO 48 HOURS RECORDING [place] ECG EXTERNAL < 48 HOURS CONTINUOUS RECORDING/STORAGE R&I BY A PHYS/QHP [place] EXTERNAL ECG UP TO 48 HRS INCL RECORDING SCANNING ANLYS W REPORT Lindy Perdomo MD [address] [place] [address] Phone: tel: fax: [facility] Referral ID Status Reason Start Date Expiration Date Visits Re quested Visits Authorized [id number] Closed 04/09/2024 04/09/2025 1 1 Reason for Visit * Reason Comments Follow-up 1 year follow up/ER follow up Encounter Details Date Type Department Care Team (Late st Contact Info) Description 04/09/2024 1:00 PM EST Office Visit [facility] Cardiology [facility] [address] [place] [address] [place] [phone] Lindy Perdomo MD [address] [place] [phone] Coronary artery disease involving koi coronary artery of koi heart without angina pectoris (Primary Dx); Precordial pain; Bradycardia; Longstanding persistent atrial fibrillation (CMS/HCC) Social [...] on file documented as of this encounter Last Filed Vital Signs Vital Sign Reading [...] Mass Index 28.41 04/09/2024 12:55 PM EST documented in this encounter Progress Notes * Lindy Perdomo MD - 04/09/2024 1:00 PM ESTAssociated Problem(s): Coronary artery disease involving koi coronary artery of koi heart without angina pectoris Orders: ECG 12 lead * Lindy Perdomo MD - 04/09/2024 1:00 PM ESTAssociated Problem(s): Chest pain * Lindy Perdomo MD - 04/09/2024 1:00 PM ESTAssociated Problem(s): Bradycardia Orders: Cardiac holter monitor (<= 48 hours); Future * Lindy Perdomo MD - 04/09/2024 1:00 PM ESTAssociated Problem(s): Longstanding persistent atrial fibrillation (CMS/HCC) Orders: ECG 12 lead Cardiac holter monitor (<= 48 hours); Future * Lindy Perdomo MD - 04/09/2024 1:00 PM EST PCP: Chasity Ellison MD HPI: Kip Chapman is a 59 y.o. old male presents for urgent outpatient assessment after ER evaluation revealing Afib with a slow ventricular response. History of Present Illness The patient is a very pleasant 59-year-old man who has been followed in the office for approximately 20 years. He has a history of HIV, which has responded well to retroviral therapy with no evidenceof viral particles and a good T cell count. He presented many years ago with an acute coronary syndrome and had evidence of a limited inferior wall myocardial infarction. Cardiac catheterization demonstrated a critical mid right coronary artery lesion, which was successfully dilated and stented. Hehas done well from a cardiac viewpoint for the most part. However, in January 2023, he presented with intermittent chest discomfort. A nuclear stress test demonstrated a mostly reversible perfusion defect in the inferior wall consistent with teofilo-infarction ischemia and a small reversible defect in the basal anterior wall. Cardiac catheterization was subsequently arranged and showed in-stent restenosis of the prior right coronary artery, which was not hemodynamically significant. iFR determination was negative, suggesting that the stress test was a false positive study. Echocardiography revealed preserved left ventricular systolic function with an ejection fraction of 60%. The patient has had intermittent paroxysmal atrial fibrillation and has not been treated with anticoagulant therapy but rather maintained on low-dose aspirin. He recently presented to [facility] for evaluation of right upper quadrant pain. Laboratory and CT scanning were unremarkable, but electrocardiography demonstrated atrial fibrillation with a slow ventricular response of about 33 to 35 bpm. He was encouraged to stay but elected to leave and was asked to sign out against medical advice. He now comes to the office for urgent outpatient assessment several days later. Extensive chart review indicates that the patient has had atrial fibrillation for at least the past 3 years. He had persistent atrial fibrillation on a Holter monitor in 2021. He has had frequent pauses without associated symptoms, chiefly at night. He has been maintained on very low-dose metoprolol therapy given his relatively slow rates in the absence of symptoms related to his dysrhythmia. He has had a [id number] score of 1 and has therefore been treated without the need for systemic anticoagulation. He reports experiencing sharp chest pain 7 days after starting pravastatin, which was prescribed byhis HIV doctor. The pain ceased upon discontinuation of the medication. He has been experiencing more frequent chest discomfort, which is not associated with exertion or swallowing. The pain is localized to the left of the center and occurs 2 to 4 times a month, lasting until the nitroglycerin takes effect. He describes the pain as similar to that experienced during his heart attack in 1990, but notes a slight worsening. He has been using nitroglycerin without fear and finds it effective. He has been experiencing this pain for several years, with no significant change from 3 years ago. He reports no associated lightheadedness or fainting. He also reports experiencing RLQ abdominal pain/ right inguinal pain, which he initially attributedto constipation. He was advised by Dr. Couch and Dr. Ellison to seek emergency care. He presented to theemergency room after fasting for 12 hours, where he was found to be bradycardic in AFib with a heart rate of [address] scan revealed no intestinal blockage. He signed himself out of the emergency room and experienced confusion while driving home (after no food for close to 24 hours), but reports no associated lightheadedness or fainting. He has been taking Metamucil nightly and reports no blood in his stools. He was prescribed Cipro for a week by Dr. Tucker for testicular pain, which he believes may have initiated his abdominal pain. He has a history of bradycardia and is currently on a low dose of metoprolol (12.5 mg). He reports no episodes of tachycardia. He is open-minded about the possibility of a pacemaker. Supplemental Information He has osteonecrosis in the hips and needs both hips replaced. He also needs shoulder surgery, but both surgeries have been postponed. MEDICATIONS Current: Metoprolol, aspirin, nitroglycerin. Discontinued: Pitavastatin ACTIVE MEDICATIONS: Outpatient Medications Marked as Taking for the 04/09/24 encounter (Office Visit) with Lindy Perdomo MD Medication Sig Dispense Refill aspirin (ASPIR-81 ORAL) Take 81 mg by mouth daily. vxkarbxhzed-yxekzophnmeus-edpddhnlq alafenamide (Biktarvy) 50-200-25 mg per tablet Take 1 tablet bymouth 1 (one) time each day. buPROPion SR (WELLBUTRIN SR) 200 mg 12 hr tablet Take 200 mg by mouth daily. cholecalciferol (VITAMIN D-3) 25 mcg (1,000 unit) tablet Take 1 tablet (1,000 Units total) by mouth1 (one) time each day. coenzyme Q-10 100 mg capsule 300 mg daily. doravirine (Pifeltro) 100 mg tablet Take 1 tablet (100 mg total) by mouth 1 (one) time each day. isosorbide mononitrate (IMDUR) 30 mg 24 hr tablet Take 1 tablet (30 mg total) by mouth 1 (one) timeeach day. metoprolol succinate (TOPROL-XL) 25 mg 24 hr tablet Take 0.5 Tablets by mouth daily. nitroglycerin (NITROSTAT) 0.[address] 1 tablet (0.4 mg total) under the tongue every 5 (five) minutes if needed for chest pain. terazosin (HYTRIN) 5 mg capsule Take 5 mg by mouth daily. ursodioL (ACTIGALL) 300 mg capsule Take by mouth. Take 3 tablets im AM and take 2 tablets in the PM valACYclovir (VALTREX) 500 mg tablet Take 500 mg by mouth as needed. zolpidem (AMBIEN) 10 mg tablet Take 10 mg by mouth daily. PAST MEDICAL HISTORY: Patient Active Problem List Diagnosis Date Noted Date Diagnosed Chest pain 02/05/2023 Longstanding persistent atrial fibrillation (CMS/HCC) 11/14/2021 Persistent Afib since 2021 without Sx. CHADSVasc2 score of 1.0. Discussed in past with pt and treated with aspirin. Occasional pauses, chiefly nocturnal seen on holter. Mar 2024 presentation to [facility], found to have AF with HR 35, without evident Sx. Bradycardia 08/05/2020 Last Assessment & Plan: The patient has a history of bradycardia. He is tolerating metoprolol 12.5 mg orally daily. Coronary artery disease involving koi coronary artery of koi heart without angina pectoris 08/05/2020 Last Assessment & Plan: The patient has a history of coronary artery disease status post drug-eluting stent to the right coronary artery in the . The patient's last ischemic evaluation was April 2018 where he underwentan exercise nuclear stress test and showed no defect to suggest ischemia. The patient has been reporting episodes of dull intermittent chest discomfort which improves with nitroglycerin. He denies any shortness of breath. At this point, I recommend the patient undergo an exercise nuclear stress test to evaluate for ischemia as a cause of his symptoms. I also recommend the patient start isosorbidemononitrate 30 mg orally daily for antianginal therapy. [...] also discussed that the patient should be onstatin therapy given his history of coronary artery [...] as well for cholesterol control. He did havea fasting lipid panel in August which showed an LDL of 86. We reviewed nitroglycerin administration instructions. Patient advised to seek emergency medical attention by calling 911 if they were to develop severe dyspnea, chest pain that did not resolve with rest or nitroglycerin, or if they were to faint. Paroxysmal atrial fibrillation ([facility]) 08/05/2020 Last Assessment & Plan: The patient has a history of atrial fibrillation. He denies any symptoms of atrial fibrillation including palpitations. He underwent 24-hour Holter monitor February 2021 which showed atrial fibrillation noted throughout the recording with an average heart rate of 59 bpm and rare PVCs. It also kaxadr49 pauses greater than 3 seconds mostly during sleep hours. We discussed his atrial fibrillation today. His heart rate is well-controlled today at a rate of 62 bpm. He continues on rate control therapy with metoprolol 12.5 mg orally daily. Patient has a WUO9LD9-JICd score of 1. He continues on aspirin. We did discuss that the patient may benefit from a sleep study given the results of his Holter monitor. The patient does not want to complete this right now and would like to complete the stress test prior to any other testing. At this point, we will continue current therapies. Resolved Problems No resolved problems to display. ALLERGIES: Allergies Allergen Reactions Sulfa (Sulfonamide Antibiotics) FAMILY HISTORY: No family history on file. SOCIAL HISTORY: Social History Tobacco Use Smoking status: Never Smokeless tobacco: Never Substance Use Topics Alcohol use: Not Currently REVIEW OF SYSTEMS: ROS The patient reports continued right inguinal/right lower quadrant discomfort that has recently improved. He has not had evidence of infection, bleeding or trauma. PHYSICAL EXAM: Vitals: 04/09/24 1255 BP: 110/76 BP Location: Left arm Patient Position: Sitting BP Cuff Size: Adult Pulse: 62 SpO2: 96% Weight: 79.8 kg (176 lb) Height: 1.676 m (66 ) APPEARANCE: Alert and in no acute distress, well-developed, well-nourished. EYES: PERRL, conjunctiva and sclera normal EARS: External ears normal. NOSE/SINUS: Nares normal. Septum midline. Mucosa normal. No drainage or sinus tenderness. MOUTH/THROAT: no erythema or exudates NECK: JVP less then 8cm H2O, No bruits., Neck supple, no adenopathy or mass HEART: RRR with normal S1 and S2, no murmurs, no gallops, no JVD appreciated CHEST: non-tender LUNG: clear to auscultation ABDOMEN: Bowel sounds normoactive, no bruits, soft, non-tender, without organomegaly or palpable masses EXTREMITIES: Extremities warm and well perfused without clubbing, cyanosis, or edema NEURO: Awake, alert and oriented x 3 and Normal gait SKIN: Skin color, texture, turgor normal. No rashes or lesions. EKG: A-fib, left posterior fascicular block. Heart rate 52 bpm compared to prior study heart rate has increased. TESTING: Hgb 18 Trop neg ASSESSMENT/PLAN: Assessment & Plan Coronary artery disease involving koi coronary artery of koi heart without angina pectoris Orders: ECG 12 lead Precordial pain Bradycardia Orders: Cardiac holter monitor (<= 48 hours); Future Longstanding persistent atrial fibrillation (CMS/HCC) Orders: ECG 12 lead Cardiac holter monitor (<= 48 hours); Future Assessment & Plan 1. Bradycardia. His current heart rate is recorded at 52 bpm on the EKG. The potential benefits of a pacemaker werediscussed, but it was concluded that his bradycardia is not severe enough to warrant this intervention at present. He will discontinue metoprolol and a Holter monitor will be arranged for a 24-hour period to assess his heart rate without the influence of metoprolol. He is advised to maintain a symptom diary for further evaluation. 2. Atrial Fibrillation. He has a history of persistent atrial fibrillation for at least the past 3 years, with a PRI0TP1-USHa score of 1. He has been maintained on low-dose aspirin and metoprolol 12.5 mg. Given the slow ventricular response and lack of symptoms related to his dysrhythmia, metoprolol will be discontinued. A Holter monitor will be used to reassess his condition after discontinuation. 3. Chest Discomfort. He reports intermittent chest discomfort that is not associated with exertion and is relieved by nitroglycerin. The chest discomfort is localized to the left parasternal region and occurs 2 to 4 times a month. It is unrelated to swallowing and has musculoskeletal features. This symptom has been persistent for years and has not fundamentally changed. He is advised to continue using nitroglycerin as needed and to monitor for any changes in symptoms. 4. Abdominal Pain. He recently presented to the emergency room with abdominal pain and was found to have bradycardia with a ventricular response of about 33 [address] scan was unremarkable. He reports persistent abdominal discomfort and tenderness in the right inguinal area. He is advised to follow up with his primary care physician or a banjo repairer for further evaluation. The symptom does not suggest intestinal ischemia from a cardiac source of embolism. Further workup is warranted. PROCEDURE Cardiac catheterization demonstrated a critical mid right coronary artery lesion, which was successfully dilated and stented in 1991. I have obtained verbal consent from Kip Chapman prior to the recording. I have advised Kip Chapman that he may refuse the recording and require the recording to be turned off at any time duringthis encounter. The СВЕТЛАНА team will continue to co-manage this patient following the plan of care as established by my initial visit and as per AHA guidelines for ongoing management and surveillance of 1. Coronary artery disease involving koi coronary artery of koi heart without angina pectoris 2. Precordial pain 3. Bradycardia 4. Longstanding persistent atrial fibrillation (CMS/HCC) The patient will return here in 4 months. Options for management of atrial fibrillation and for reduction of stroke risk including long-term anticoagulation as well as the possibility of a Watchman procedure have been discussed. I am not making any changes in his medical regimen. He is certainly keen to avoid initiation of any cost prohibitive medications. documented in this encounter Plan of Treatment Upcoming Encounters Date Type Department Care Team (Late st Contact Info) Description 08/11/2024 10:10 AM EDT Office Visit [facility] [address] [facility] [address] [place] [address] George Cali NP [address] [place] [address] [address] [place] [address] documented as of this encounter Procedures Procedure Name Priority Date/Time Associated Diagnosis Comments ECG 12-LEAD Routine 04/09/2024 1:07 PM EST Coronary artery disease involving koi coronary artery of koi heart without angina pectoris Longstanding persistent atrial fibrillation (CMS/HCC) documented in [...] symptoms noted. Narrative 04/16/2024 5:51 PM EST [facility] CARDIOLOGY [facility] DI[facility]NOST[facility]ING DEPARTMENT [address] [facility], [address], [place] [address] TEL: FAX: Type of Test: 24 Hour Holter Monitor Date of Test: 04/15/2024 Ordering Provider: Lindy Perdomo MD Reason for Test: Longstanding Persistent Atrial Fibrillation, Bradycardia us Lindy Perdomo MD [facility] PROCEDURES Final Result * ECG 12 lead (04/09/2024 1:07 PM EST) Ventricular Rate ECG 52 BPM GEMUSE Atrial Rate 45 BPM GEMUSE QRS Duration 86 ms GEMUSE Q-T Interval 404 ms GEMUSE QTc 375 ms GEMUSE R [place] 134 degrees GEMUSE T [place] -14 degrees GEMUSE ECG Interpretation Atrial fibrillation with slow ventricular response Left posterior fascicular block Cannot rule out Inferior infarct , age undetermined Abnormal ECG No previous ECGs available Confirmed by LINDY PERDOMO ([id number]) on 04/09/2024 3:46:20 PM GEMUSE 04/09/2024 1:07 PM EST 04/09/2024 3:46 PM EST us Lindy Perdomo MD ECG ORDERABLES Final Result GEMUSE documented in this encounter Visit Diagnoses Diagnosis Coronary artery disease involving koi coronary artery of koi heart without angina pectoris- Primary Precordial pain Bradycardia Other specified cardiac dysrhythmias Longstanding persistent atrial fibrillation (CMS/HCC) Bradycardia Other specified cardiac dysrhythmias Longstanding persistent atrial fibrillation (CMS/HCC) documented in this encounter Care Teams Polymer Engineer Relationship Specialty Start Date End Date Chasity Ellison MD [address] [place] [address] [address] [facility] [place] [address] PCP - General 01/07/12 documented as of this encounter
--- OUTSIDE RECORDS SUMMARY | 2024-04-29 10:22 | XMS_ITS | Encounter Summary ---
Author Organization [facility] Address [address] [place] [address] Care Team Providers Care Figure Skater Name Role Phone Chasity Ellison MD Primary Care Provider [phone] Reason for Visit * Reason Onset Date Comments Hospital Follow-up 04/02/2024 Encounter Details Date Type Department Care Team (Late st Contact Info) Description 04/02/2024 Telephone [facility] Cardiology [address] [phone] Noe Alejo MD [address] [place] [address],[address] [address] Hospital Follow-up Social History Tobacco Use Types Packs/Day Years [...] as of this encounter Progress Notes * Jina Swanson RN - 04/02/2024 4:32 PM EST I spoke to Kip and informed him of the below message. * George Cali NP - 04/02/2024 4:09 PM EST No blood work needed. He has longstanding stable bradycardia. I will see him at his follow up. * Jina Swanson RN - 04/02/2024 1:55 PM EST Hospital records are in the [employer] Paper for your viewing He is pending an appointment on 04/09/24. Would you like this converted to a hospital follow up appointment? Also, would you like any labs or testing completed prior to the visit? * Jailene North - 04/02/2024 1:45 PM EST Patient called stating he has a regular office visit scheduled with Dr. Alejo on 04/09/24. He states he was in the emergency room at [facility] on Saturday03/30/24 for about 12 hours. He went in for abdominal pain, and his heart rate had dropped to around 32/33. He would like to know if Dr. Alejo wants him to have any blood work or tests done before his appointment on 04/09/24. Please g dimitris him a call back at [phone]. documented in this encounter Plan of Treatment Upcoming Encounters Date Type Department Care Team (Late st Contact Info) Description 08/11/2024 10:10 AM EDT Office Visit [facility] Cardiology Associates [facility] [address] [place] [address] [place] [address] George Cali NP [address] [place] [address] [address] [place] [address] documented as of this encounter Visit Diagnoses Not on filedocumented in this encounter Care Teams Figure Skater Relationship Specialty Start Date End Date Chasity Ellison MD [address] [place] [address] [address] [facility] [place] [address] PCP - General 01/07/12 documented as of this encounter
--- OUTSIDE RECORDS SUMMARY | 2024-04-29 10:23 | XMS_ITS | Data Portability ---
Author Organization [place] [facility], Allergy Address [address] [place] [address] Care Team Providers Care Hatch Tender Name Role Phone FOZIA BEY Primary Care Provider [phone] Assessment Encounter Date Assessment Date Assessment LastModified [...] Time Details Appointments Establish ed 15 2024 11:15A Marie RAMIRES PA-C Not available Not available Not available Lab None recorded. Referral None recorded. Procedures None recorded. Surgeries None recorded. Imaging None recorded. Medication Orders clotrimaz ole-betam ethasone 1 %-0.05 % topical cream 2023 024 [id number], [address], [place], [phone], 09/26/2023 13:20:17 Patient TargetsNo targets recorded. Patient [...] Recorded Time Impacted cerumen in right ear [id number] Active 2021 Impacted cerumen, right ear; Note: Date Diagnosed : 01/02/2022 9:59 AM (H61.21) Not Available [facility] 4 02:27:11 Sensorine ural hearing loss of bilateral ears 625403363 Active 2021 Sensorine ural hearing loss, bilateral ; Note: Date Diagnosed : 01/02/2022 10:32 AM (H90.3) Not Available [facility] 4 02:27:15 Diffuse otitis externa 73990234 Active 2021 Diffuse otitis externa, unspecifi ed ear; Note: Date Diagnosed : 04/06/2021 10:27 AM (H60.319) Not Available [facility] 4 02:27:07 Chronic eczema of external auditory canal 969671970 Active 2023 FOZIA RAMIRES PA-C [address] [place] [address], [place], [address] , [facility] - [facility] 4 13:19:44 Problem Notes None recorded. Procedures Surgical History Date Name Laterality Status Provider Name and Address Organization Details Recorded Time 09/26/2023 Air & Speech Audio with Tymps (28954, 36511 & 37851) completed DRU [place], [facility] [address] [address], [place], [address], [place] - [facility] 09/26/2023 13:54:19 Imaging Results Imaging Date [...] Name and Address Organization Details Recorded Time 82518 Substance with sulfonami de structure and antibacte rial mechanism of action (substanc e) medicatio n other Not available Not available 07/09/2023 [id number] SNOMED React ion: other react ion, Unkno wn; Not Available [facility] 4 00:56:15 Medications Name Sig Start Date Stop Date Status Note LastModified by Organization Details LastModified Time terazosin 5 mg capsule TAKE 1 CAPSULE BY MOUTH AT BEDTIME active Not Available Not Available No t Available clotrimaz ole-betam ethasone 1 %-0.05 % lotion a small amount 04/10 completed Medicati on ID: [id number] D uration Value: 14 Prescri bed By [...] Not Available Not Available No t Available ciproflox acin 500 mg tablet TAKE 1 TABLET BY MOUTH TWICE DAILY active Not Available Not Available No t Available tramadol 50 mg tablet 2021 active Medicati on ID: [id number] B rand Name: tramadol Send Method: E-Prescr ibed Sub s Allowed: subs OK Speci al Instruct ion: TAKE 1 TABLET BY MOUTH TWICE DAILY NEEDED FOR PAIN Med icationG enericNa me: tramadol Not Available Not Available Not Available hydrocort isone 2.5 % topical cream with perineal applicato r APPLY RECTALLY TO THE AFFECTED AREA 2 TO 4 TIMES A DAY NEEDED FOR HEMORRHO IDS active Not Available Not Available No t Available clotrimaz ole-betam ethasone 1 %-0.05 % topical cream APPLY TOPICALL Y TO THE AFFECTED AND SURROUND ING AREAS TWICE DAILY IN THE MORNING AND IN THE EVENING FOR 2 WEEKS active Not Available Not Available No t Available ursodiol 300 mg capsule TAKE 3 CAPSULE BY MOUTH IN THE MORNING AND 2 CAPSULE EVERY EVENING active Not Available Not Available No t Available clotrimaz ole 1 % topical solution 04/10 completed Medicati on ID: [id number] P rescribe d By Name: Peterson dukes MD Brand Name: clotrima tri reynaga Method: E-Prescr ibed Sub s Allowed: subs [...] a day 2021 active Medicati on ID: [id number] D uration Value: 30 Prescri bed By Name: Peterson dukes MD Brand Name: betameth asone dipropio sharronjabari reynaga Method: E-Prescr ibed Sub s Allowed: subs [...] a day 2021 active Medicati on ID: [id number] D uration Value: 30 Prescri bed By Name: Peterson dukes MD Brand Name: clotrilaura bartlett Sen d Method: E-Prescr ibed Sub s Allowed: subs OK Speci al Instruct ion: ear canal Me dication GenericN tom: clotrima zole Not Available Not Available Not Available amoxicill in 875 mg-potass ium clavulana te 125 mg tablet 2021 active Medicati on ID: [id number] B rand Name: amoxicil gavi-pot clavulan ate [...] mg tablet 2021 active Medicati on ID: [id number] B rand Name: oxycodon e Send Method: E-Prescr ibed Sub s Allowed: subs OK Medic ationGen ericName : oxycodon e Not Available Not Available Not Available bupropion HCl SR 200 mg tablet,12 hr sustained -release TAKE 1 TABLET BY MOUTH EVERY EVENING active Not Available Not Available No t Available DermOtic Oil 0.01 % ear drops 2021 active Medicati on ID: [id number] D uration Value: 30 Brand Name: DermOtic Oil Send Method: E-Prescr ibed Sub s Allowed: subs OK Speci al Instruct ion: Apply 4 drops to each ear 2 times a week and as needed M edicatio nGeneric Name: DermOtic Oil Not Available Not Available Not Available Calmosept ine 0.44 %-20.6 % topical ointment APPLY 1 APPLICAT ION TOPICALL Y FOUR TIMES DAILY NEEDED FOR SKIN IRRITATI ON AROUND ANUS active Not Available Not Available No t Available pitavasta tin calcium 4 mg tablet TAKE 1 TABLET BY MOUTH DAILY active Not Available Not Available No t Available OxyContin 10 mg tablet,cr ush resistant ,extended release 2021 active Medicati on ID: [id number] B rand Name: OxyConti n Send Method: E-Prescr ibed Sub s Allowed: subs OK Medic ationGen ericName : OxyConti n Not Available Not Available Not Available Genvoya 150 mg-150 mg-200 mg-10 mg tablet 2021 active Medicati on ID: [id number] B rand Name: Genvoya Send Method: E-Prescr ibed Sub s Allowed: [...] Updated DateTime 09/26/2023 167.64 cm 28.2 kg/m2 91695.66 g Travis Araujo [place] [facility] 09/26/2023 13:09:44 Social History None recorded. Functional Status None recorded. Mental Status None recorded. Family History Nothing Reported. Medical History No medical history recorded. Past Encounters Encounter ID Performer Location Encounter Start Date Encounter Closed Date Diagnosis/Indication Diagnosis SNOMED-CT Code Diagnosis ICD10 Code Diagnosis Note [id number] MISHEL BURR MD [facility] [address] [address] 09/26/2023 12:47:10 09/26/2023 14:22:55 Chronic eczema of external auditory canal 444316380 H60.8X9 Sensorineu ral hearing loss of bilateral ears 042429701 H90.3 Audiologic al evaluation results: Right ear: [...] Lutz Member ID Guarantor Name 09/26/2023 2 [place]: [facility] Kip Chapman [id number] Kip Chapman 09/26/2023 1 MEDICARE B: [employer] - RAILRO[employer] MEDICARE Kip Chapman [id number] Kip Chapman Notes Date Note Type Note [...] that worked very well. MISHEL BURR MD [address] [place] [address], [phone], [facility] - [facility] 09/27/2023 09:16:25
--- OUTSIDE RECORDS SUMMARY | 2024-04-29 10:23 | XMS_ITS ---
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 Name Role Phone Po Chasity BACON Primary Care Provider Peterson Shah Unavailable [phone] Allergies Allergen (clinical drug ingredient) Drug/Non Drug Allergy documented on EMR Reaction Allergy Type Onset Date Status Substance with sulfonamide structure and antibacterial mechanism of action (substance) Sulfa (uncoded) Unknown Allergy Active REASON FOR VISIT Patient presents today for a liver fibrosis Medications Medication SIG (Take, Route, Frequency, Duration) Notes Start Date End Date Status Omeprazole 20 MG 1 capsule 30 minutes before morning meal Orally Once a day for 30 day(s) 05/21/2019 Active Ursodiol 300 MG TAKE 3 CAPSULES BY MOUTH EVERY MORNING AND 2 CAPSULES BY MOUTH EVERY EVENING for 90 Active CoQ-10 300mg 1 capsule with a cherry l Orally Once a day Not-Taking Vitamin D 2000 UNIT 1 tablet Orally Once a day for 30 day(s) Active Ambien 10 MG 1 tablet at bedtime as needed Orally Once a day Active Wellbutrin Active Aspirin 81 MG 1 tablet Orally Once a day Active Metoprolol Tartrate 50 MG 1 tablet Orall y 1 po qd Active Nitroglycerin prn Active Pifeltro Active Terazosin HCl 5 MG 1 capsule Orally Onc e a day Active Valtrex 500 MG 2 tablets Orally 1 p o qd Active Social History Alcohol Screen Question Answer Notes Did you have a drink containing alcohol in the p ast year? No Points 0 Interpretation Negative Section Notes: Nonsmoker; only occasional a lcohol. Vital Signs Temperature 97.5 degrees Fahrenheit 02/13/20 23 Blood pressure systolic 00 mm Hg 02/13/20 23 Blood pressure diastolic 00 mm Hg 023 Height 67.50 in 02/12/2023 Weight 181 lbs 02/12/2023 BMI 27.93 kg/m2 02/12/2023 Encounters Encounter Location Date Provider Diagnosis [facility] [address] [place] [address] 02/12/2023 Peterson Couch Fatty liver K76.0 and Liver fibrosis K74.00 Assessments Encounter Date Diagnosis (ICD Code) Assessment Notes Treatment Notes Treatment Clinical Notes Section Notes 02/12/2023 Fatty liver (ICD-10 - K76.0) Overall, Mony appears well. We did review his negative colonoscopy in February and the need for a followup colonoscopy in 2027 further screening. His liver disease remains stable and without any signs of progression or decompensation. I did advise him to continue his ursodiol. His recent labs are reassuring. I will schedule him for his followup abdominal ultrasound since he has not had that done since the early part 2021. If things are stable I will plan to see him in one year for a followup visit. I did advise him to contact me in the interim if he has any problems or questions I can be of assistance with. Mony was comfortable with this plan. Thank you again for allowing me to participate in Mony's care. I shall continue to keep you advised of his progress. 02/12/2023 Liver fibrosis (ICD-10 - K74.00) Overall, Mony appears well. We did review his negative colonoscopy in February and the need for a followup colonoscopy in 2027 further screening. His liver disease remains stable and without any signs of progression or decompensation. I did advise him to continue his ursodiol. His recent labs are reassuring. I will schedule him for his followup abdominal ultrasound since he has not had that done since the early part 2021. If things are stable I will plan to see him in one year for a followup visit. I did advise him to contact me in the interim if he has any problems or questions I can be of assistance with. Mony was comfortable with this plan. Thank you again for allowing me to participate in Mony's care. I shall continue to keep you advised of his progress. Plan Of Treatment Pending Test Test Name Order Date US abdomen comp w elastography 3 Next Appt Details Follow Up: 1 Year, Reason: Provider Name:Peterson Couch , 05/05/2024 10:30:00 AM, [address], [address], [place], [address], Progress Notes * NORA PAINTINGOB:1965 (58 yo M)Acc No.[id number]:02/12/2023 Progress Notes Patient:?MONY PAINTING Provider:?Peterson Couch MD :1965???Age:57 Y???Sex:Male Min e:02/12/2023 Address:[address] [place], [place] [id number] Pcp:Chasity Ellison MD Subjective: * Chief Complaints: * ???Patient presents today fo r a liver fibrosis * HPI: ???incontinence:? I saw Mony in followup today in regard to his underlying history of fatty liver, liver fibrosis, and previously elevated LFTs. ?I last saw Mony in February, at which time he underwent a negative followup screening colonoscopy. Since that time has been feeling well from a GI standpoint. He has continued on his usual regimen of ursodiol. He denies any problems with significant heartburn, dysphagia, anorexia, early satiety, nausea, nor vomiting. He denies any abdominal pain, increased abdominal girth, jaundice, unintentional weight loss, pruritus, nor fatigue. His bowel movements have remained regular and without any signs of bleeding. ?Laboratories from earlier this month revealed a normal CBC with platelet count, normal PT with INR, and a completely normal liver profile. A liver fibrosis score and alpha-fetoprotein level are currently pending. His most recent liver ultrasound from March 2021 did not reveal any lesions, splenomegaly, nor ascites. ?He does advise that he is scheduled for a cardiac catheterization tomorrow due to some recent chest pain and an abnormal stress test. * ROS:?General/Constitutional:?Change in appetite?denies.?Chills?denies.?Fatigue?admits.?Ophthalmologic:?Patient denies? Negative..?ENT:?Patient denies?Negative..?Respiratory:?Patient denies?No coughing/hemoptysis..?Cardiovascular:?Patient denies? No chest pain/orthopnea..?Gastrointestinal:?Comments?See HPI for details.?Genitourinary:?Patient denies? No dysuria/hematuria..?Musculoskeletal:?Patient denies? No specific arthralgias/myalgias..?Skin:?Patient denies?No rash/pruritus..?Neurologic:?Patient denies? No headaches/seizures..?Psychiatric:?Patient denies?Negative..? * Medical History:? * Surgical History:?Appendecto my Right elbow Laser prostate surgery August 03, 2015Right rotator cuff * Hospitalization/Major Diagno stic Procedure:?No Hospitalization History. * Family History:?Father: dece ased, june from [facility], diagnosed with Heart disease.?Mother: alive, diagnosed with Colon polyps.?Paternal Grand Father: , diagnosed with Heart disease.? Denies family hx. of colorectal cancer. * Social History:?Tobacco Use:?Tobacco Use/Smoking?Are you a: nonsmoker.?Drugs/Alcohol:?Alcohol Screen?Did you have a drink containing alcohol in the past year??No,?Points?0,?Interpretation?Negative.?Miscellaneous:?Marital status: . Occupation: unemployed. ???Nonsmoker; only occasional alcohol. * Medications:?TakingPifeltro Terazosin HCl 5 MG Capsule 1 capsule Orally Once a dayValtrex 500 MG Tablet 2 tablets Orally 1 po qdAmbien 10 MG Tablet 1 tablet at bedtime as needed Orally Once a dayWellbutrin Aspirin 81 MG Tablet Chewable 1 tablet Orally Once a dayMetoprolol Tartrate 50 MG Tablet 1 tablet Orally 1 po qdNitroglycerin prnVitamin D 2000 UNIT Tablet 1 tablet Orally Once a dayOmeprazole 20 MG Capsule Delayed Release 1 capsule 30 minutes before morning meal Orally Once a dayUrsodiol 300 MG Capsule TAKE 3 CAPSULES BY MOUTH EVERY MORNING AND 2 CAPSULES BY MOUTH EVERY EVENING Taking Pifeltro Taking Terazosin HCl 5 MG Capsule 1 capsule Orally Once a dayTaking Valtrex 500 MG Tablet 2 tablets Orally 1 po qdTaking Ambien 10 MG Tablet 1 tablet at bedtime as needed Orally Once a dayTaking Wellbutrin Taking Aspirin 81 MG Tablet Chewable 1 tablet Orally Once a dayTaking Metoprolol Tartrate 50 MG Tablet 1 tablet Orally 1 po qdTaking Nitroglycerin prnTaking Vitamin D 2000 UNIT Tablet 1 tablet Orally Once a dayTaking Omeprazole 20 MG Capsule Delayed Release 1 capsule 30 minutes before morning meal Orally Once a dayTaking Ursodiol 300 MG Capsule TAKE 3 CAPSULES BY MOUTH EVERY MORNING AND 2 CAPSULES BY MOUTH EVERY EVENING Not-Taking/PRNCoQ-10 300mg Capsule 1 capsule with a meal Orally Once a dayNot-Taking/PRN CoQ-10 300mg Capsule 1 capsule with a meal Orally Once a dayDiscontinuedGenvoya once a dayMedication List reviewed and reconciled with the patientDiscontinued Genvoya once a dayMedication List reviewed and reconciled with the patient * Allergies:?Sulfayes[Allergie s Verified] Objective: * Vitals:?Wt: 181 lbs, Ht: 67. 50 in, BMI:27.93 Index, BP: 00/00 mm Hg, Temp: 97.5. * Examination: ???General Examination: ?GENERAL APPEARANCE:?pleasant, well nourished, well developed, in no acute distress .?EYES:?sclera non-icteric .?ORAL CAVITY:?mucosa moist .?NECK/THYROID:?no cervical lymphadenopathy, neck supple .?SKIN:?nonjaundiced, no spider angiomata. .?HEART:?S1, S2 normal .?LUNGS:?clear to auscultation bilaterally .?ABDOMEN:?normal bowel sounds, no guarding or rigidity, no hepatosplenomegaly, no masses palpable, soft, nontender, nondistended. .?EXTREMITIES:?no edema .?NEUROLOGIC:?alert and oriented .? Assessment: * Assessment: 1.?Fatty liver - K76.0 (Prim elvis)?2.?Liver fibrosis - K74.00? Overall, Mony appears well. We did review his negative colonoscopy in February and the need for a followup colonoscopy in 2027 further screening. His liver disease remains stable and without any signs of progression or decompensation. I did advise him to continue his ursodiol. His recent labs are reassuring. I will schedule him for his followup abdominal ultrasound since he has not had that done since the early part of 2021. If things are stable I will plan to see him in one year for a followup visit. I did advise him to contact me in the interim if he has any problems or questions I can be of assistance with. Mony was comfortable with this plan. Thank you again for allowing me to participate in Mony's care. I shall continue to keep you advised of his progress. Plan: * Treatment: * 2.?Liver fibrosis?Imaging: US abdomen comp w elastography* sched for 04/19/23 at 8:00 am [facility] ultrasound Dept 2nd Floorfasting after midnight * * Procedure Codes:?3017F COLOR ECTAL CA SCREEN DOC [id number] TOBACCO [id number] BP SCR NOT PRFRM REC REASON NOS * Preventive Medicine:? ??Counseling:?Care goal follow-up plan:?Above Normal BMI Follow-up?Giving encouragement to exercise,?BMI management provided?Yes.? * Follow Up:?1 Year * * Sign off status: Completed true * Provider:?Peterson Couch MD Date:? 023 Generated for Wilmer umana/Sharona/Isacitting on:?04/29/2024 10:22 AM EST History and Physical Notes * HPI (History of Present Illness) Category Sub-Category Detail Notes Category Not es incontinence I saw Mony in followup today in regard to his underlying history of fatty liver, liver fibrosis, and previously elevated LFTs. I last saw Mony in February, at which time he underwent a negative followup screening colonoscopy. Since that time has been feeling well from a GI standpoint. He has continued on his usual regimen of ursodiol. He denies any problems with significant heartburn, dysphagia, anorexia, early satiety, nausea, nor vomiting. He denies any abdominal pain, increased abdominal girth, jaundice, unintentional weight loss, pruritus, nor fatigue. His bowel movements have remained regular and without any signs of bleeding. Laboratories from earlier this month revealed a normal CBC with platelet count, normal PT with INR, and a completely normal liver profile. A liver fibrosis score and alpha-fetoprotein level are currently pending. His most recent liver ultrasound from March 2021 did not reveal any lesions, splenomegaly, nor ascites. He does advise that he is scheduled for a cardiac catheterization tomorrow due to some recent chest pain and an abnormal stress test. Examination Category Sub-Category Detail Notes Category Not es General Examination GENERAL APPEARANCE: pleasant , well nourished, well developed, in no acute distress EYES: sclera non-icteric NECK/THYROID: no cervical lymphade nopathy, neck supple HEART: S1, S2 normal LUNGS: clear to auscultatio n bilaterally ABDOMEN: normal bowel sounds, no guarding or rigidity, no hepatosplenomegaly, no masses palpable, soft, nontender, nondistended. NEUROLOGIC: alert and oriented SKIN: nonjaundiced, no spi sintia angiomata. EXTREMITIES: no edema ORAL CAVITY: mucosa moist
--- OUTSIDE RECORDS SUMMARY | 2024-04-29 10:23 | XMS_ITS ---
Author Organization [facility] Address [address] [place] [address] Care Team Providers Care Plate Furnace Operator Name Role Phone Chasity Ellison MD Primary Care Provider Peterson Shah [phone] Results Component Value Reference Range Notes Prothrombin Time INR Reviewed date:02/05/2023 10:59:03 AM Interpretation: Performing Lab:[facility], [address] [place] [id number] Notes/Report: Prothrombin Time 12.2 11.1-13.3 SEC INTERNATIONAL NORM RATIO 1.0 0.9-1.1 INTERNATIONAL NORMALIZED RATIO (INR) REFERENCE RANGES Reference Range For patients not on anticoagulant therapy: 0.9 - 1.1 INR ranges for oral anticoagulant therapy: For prevention and treatment of venous thrombosis and pulmonary embolism: 2.0 - 3.0 For acute myocardial infarction with aspirin therapy: 2.0 - 3.0 For acute myocardial infarction without aspirin therapy: 3.0 - 4.0 For patients with mechanical prosthetic heart valves: 2.5 - 3.5 Liver Fibrosis Pnl Reviewed date:02/14/2023 10:39:57 PM Interpretation: Performing Lab:[facility], [address] [place] [id number] Notes/Report: Liver Fibrosis Score 0.64 Liver Fibrosis Stage F3 Liver Fibrosis Interpretation SEE NOTE advanced fibrosis Fibro Test Score (f) Metavir Score f>=0 and f<=0.21 : F0 (no fibrosis) f>0.21 and f<=0.27 : F0-F1 (no fibrosis) f>0.27 and f<=0.31 : F1 (minimal fibrosis) f>0.31 and f<=0.48 : F1-F2 (minimal fibrosis) f>0.48 and f<=0.58 : F2 (moderate fibrosis) f>0.58 and f<=0.72 : F3 (advanced fibrosis) f>0.72 and f<=0.74 : F3-F4 (advanced fibrosis) f>0.74 and f<=1.00 : F4 (severe fibrosis) Nec Inflam Act Score 0.25 Nec Inflam Act Grade A0-A1 Nec Inflam Act Interpretation SEE NOTE no activity ActiTest Score (a) Metavir Score a>=0 and a<=0.17 : A0 (no activity) a>0.17 and a<=0.29 : A0-A1 (no activity) a>0.29 and a<=0.36 : A1 (minimal activity) a>0.36 and a<=0.52 : A1-A2 (minimal activity) a>0.52 and a<=0.60 : A2 (significant activity) a>0.60 and a<=0.62 : A2-A3 (significant activity) a>0.62 and a<=1.00 : A3 (severe activity) [id number]-Macroglobulin 302 106-279 mg/dL FIB-Haptoglobin 42 43-212 mg/dL FIB-Apolipoprotein A1 143 94-176 mg/dL FIB-Total Bilirubin 0.7 0.2-1.2 mg/dL FIB-GGT 22 3-85 U/L FIB-ALT 33 9-46 U/L Reference ID [id number] Footnote SEE NOTE The reliability of results is dependent on compliance with the preanalytical and analytical conditions recommended by [employer]. The tests have to be deferred for: acute hemolysis, acute hepatitis, acute inflammation, extra hepatic cholestasis. The advice of a specialist should be sought for interpretation in chronic hemolysis and Gilbert's syndrome. The test interpretation is not validated in liver transplant patients. Isolated extreme values of one of the components should lead to caution in interpreting the results. In case of discordance between a biopsy result and a test, it is recommended to seek the advice of a specialist. The causes of these discordances could be due to a flaw of the test or to a flaw in the biopsy: i.e. a liver biopsy has a 33% variability rate for one fibrosis stage. FibroTest is interpretable for chronic hepatitis B and C, alcoholic and non alcoholic steatosis. ActiTest is interpretable for chronic hepatitis B and C. The performance characteristics have been determined by [employer] [facility]. It has not been cleared or approved by the U.S. Food and Drug Administration. Performance characteristics refer to the analytical performance of the test. [employer], the associated logo, [employer] and all associated [employer] rehman are the registered trademarks of [employer]. All third green party rehman - (R) and (TM) - are the property of their respective owners. (C) 0168-9668 [employer]. All rights reserved. THIS TEST WAS PERFORMED AT: [employer] [facility] [place] [address] [place] [address] RUFUS RAMIREZ MD,PHD,ZAHRA REASON FOR VISIT new lab slip Encounters Encounter Location Date Provider Diagnosis [facility] [address] [place] [phone] 02/01/2023 Peterson Couch Fatty liver K76.0 and Liver fibrosis K74.00 Assessments Encounter Date Diagnosis (ICD Code) Assessment Notes Treatment Notes Treatment Clinical Notes Section Notes 02/01/2023 Fatty liver (ICD-10 - K76.0) 02/01/2023 Liver fibrosis (ICD-10 - K74.00) Plan Of Treatment Pending Test Test Name Order Date LIVER PROFILE 02/01/2023 CBC w DIFF 02/01/2023 ALPHA-FETOPROTEIN,TUMOR MARKER 3 US abdomen comp w elastography 3 Next Appt Details Provider Name:Peterson Couch , 05/05/2024 10:30:00 AM, [address], [address], [place], [address], Progress Notes * NORA PAINTINGOB:1965 (57 yo M)Acc No.[id number]:02/01/2023 Patient:?MONY PAINTING :1965???Age:57 Y???Sex:Male Address:[address] [place] [address] Subjective: * Chief Complaints: * ???New lab slip * Medical History:? * Surgical History:? * Hospitalization/Major Diagno stic Procedure:? * Medications:? Objective: Assessment: * Assessment: 1.?Fatty liver - K76.0 (Prim elvis)?2.?Liver fibrosis - K74.00? Plan: * Treatment: 2.?Liver fibrosis?LAB: LIVER PROFILE ?LAB: CBC w DIFF ?LAB: ALPHA-FETOPROTEIN,TUMOR MARKER ?LAB: Prothrombin Time INR ?LAB: Liver Fibrosis Pnl ?Imaging: US abdomen comp w elastography* * Procedure Codes:? * true * Date:? Generated for Wilmer umana/Sharona/eTcathrynitting on:?04/29/2024 10:22 AM EST
== END 2024-04-29 10:12 | disposition home or self-care (01) ==
PROVIDERS: PCP Internal Medicine; Visit Provider Nurse Practitioner Family
DX: R39.15 Urgency of urination (principal); Z13.9 Encounter for screening, unspecified
CPT/HCPCS: 99213

== ENCOUNTER → 2024-04-29 09:18 | Outpatient (BNVA) | payer MEDICARE, MEDICAID, SELFPAY | PROVIDERS: PCP Internal Medicine; Visit Provider Nurse Practitioner Family | DX: N32.81 Overactive bladder (principal); R39.15 Urgency of urination; R33.9 Retention of urine, unspecified | CPT/HCPCS: 51798; 81003; 99212 ==

== ENCOUNTER 2024-12-10 07:59 | Outpatient (REF) | payer MEDICARE, MEDICAID, SELFPAY ==
--- OUTSIDE RECORDS SUMMARY | 2024-05-05 06:30 | XMS_ITS ---
Author Organization [facility] Address [address] [place] [address] Care Team Providers Care Labor Gang Supervisor Name Role Phone Chasity Ellison MD Primary Care Provider Peterson Shah [phone] REASON FOR VISIT Patient presents today for LIVER FIBROSIS Encounters Encounter Location Date Provider Diagnosis [facility] [address] [place] [address] 05/05/2024 Peterson Couch Plan Of Treatment Next Appt Details Provider Name:Peterson Couch , 03/09/2025 09:30:00 AM, [address], [address], [place], [address], Progress Notes * NORA PAINTINGOB:1965 (59 yo M)Acc No.[id number]:05/05/2024 Progress Notes Patient: MONY YA Provider: Juan Couch MD :1965 A ge:59 Y S ex:Male Date:05/05/2024 Address:[address] [place], [place] [phone] Pcp:Chasity Ellison MD Subjective: * Chief Complaints: * 1 . Patient presents today for LIVER FIBROSIS. * Medical History: Objective: * Vitals: Assessment: Plan: * Treatment: * * The named appointment provid er may or may not be the originator of this progress note, and it is not deemed complete until electronically signed by the appointment provider. Sign off status: Pending * Provider: Juan Couch MD Date: 0 05/05/2024 Generated for Wilmer umana/Sharona/Christie on: 1 08:03 AM EDT
--- OUTSIDE RECORDS SUMMARY | 2024-12-10 08:03 | XMS_ITS | Clinical Summary ---
Author Organization [facility] Address [address] [address] Phone Care Team Providers Care Contract Technical Writer Name Role Phone Chasity Ellison MD Primary Care Provider [phone] Allergies Active Allergy Reactions Criticality Noted Date Comments Sulfa (Sulfonamide Antibiotics) 07/26 Medications doravirine (Pifeltro) 100 mg tablet Take 1 [...] mouth 1 (one) time each day. Active isosorbide mononitrate (IMDUR) 30 mg 24 hr tablet TAKE 1 TABLET BY MOUTH DAILY 90 tablet 2 07/08/2024 Active Active Problems Problem Noted Date Diagnosed Date Chest pain 02/05/2023 Assessment & Plan (04/09/2024 4:49 PM EST): Longstanding persistent atri al fibrillation (CMS/HCC V24, CMS/HCC V28) 11/14/2021 Overview (04/08/2024): Persistent Afib since 2021 without Sx. CHADSVasc2 score of 1.0. Discussed in past with pt and treated with aspirin. Occasional pauses, chiefly nocturnal seen on holter. Mar 2024 [place] [facility], found to have AF with HR [...] hours); Future Coronary artery disease invo lving [place] coronary artery of [place] heart without angina pectoris 08/05/2020 Overview (04/03/2024): [...] Orders: ECG 12 lead Paroxysmal atrial fibrillation ([facility] V24, CMS /[facility] V28) 08/05/2020 Overview (04/03/2024): Last Assessment & Plan: [...] 12.5 mg orally daily. Patient has a UVE2RN7-TSSn score of 1. He continues on aspirin. We did discuss that the patient may benefit from a sleep study given the results of his Holter monitor. The patient does not want to complete this right now and would like to complete the stress test prior to any other testing. At this point, we will continue current therapies. Social History Tobacco Use Types Packs/Day Years [...] 04/09/2024 12:55 PM EST Plan of Treatment Health Maintenance Due Date Last Done Comments Colorectal Cancer Screening: Colonoscopy 1965 Meningococcal ACWY Vaccine (1 - Risk 2-dose series) 1967 MMR Vaccines (1 of 2 - Risk 2-dose series) 1983 DTaP,Tdap,and Td Vaccines (1 - Tdap) 1984 Hepatitis A Vaccines (1 of 2 - Risk 2-dose series) 1984 RSV Immunization Adult Patients (1 - Risk 50-74 years 1-dose series) 2015 Pneumococcal Vaccine: 50+ Years (2 of 2 - PPSV23, PCV20, or PCV21) 06/13/2021 04/18/2021 Hepatitis B Vaccines (3 of 3 - 19+ 3-dose series) 09/18/2021 04/18/2021, 03/21/2021 Cholesterol Screening (Lipid Panel) 02/03/2022 Hepatitis C Screening 02/03/2022 Social Influencers of Health Screening 02/03/2022 Hypertension/CHF/CAD Annual BMP Blood Test 02/04/2022 Depression Screening 02/26/2024 COVID-19 Vaccine ( season) 2024 12/29/2022, 02/10/2022, 05/25/2021, Additional history exists Influenza Vaccine (#1) 2024 , 12/29/2022, 12/22/2021, Additional history exists Zoster Vaccines Completed 06/21/2022, 04/26/2022 HIB Vaccines Aged Out No longer eligi ble based on patient's age to complete this topic HPV Vaccines Aged Out No longer eligi ble based on patient's age to complete this topic IPV Vaccines Aged Out No longer eligi ble based on patient's age to complete this topic Meningococcal B Vaccine Aged Out No l onger eligible based on patient's age to complete this topic RSV Immunization Patients Under 20 months Aged Out No longer eligible based on patient's age to complete this topic Varicella Vaccines Aged Out No longer eligible based on patient's age to complete this topic Insurance MEDICAID - [place] MEDICARE Care Teams Contract Technical Writer Relationship Specialty Start Date End Date Chasity Ellison MD [address] [place] [address] [address] [facility] [place] [address] PCP - General 01/07/12
--- OUTSIDE RECORDS SUMMARY | 2024-12-10 08:03 | XMS_ITS | Patient Health Record ---
Author Organization [facility] Address [address] [place] [id number] Care Team Providers Care Teletype Mechanic Name Role Phone Po Chasity BACON Primary Care Provider Peterson Shah Unavailable [phone] Allergies Allergen (clinical drug ingredient) Drug/Non Drug Allergy documented on EMR Reaction Allergy Type Onset Date Status Substance with sulfonamide structure and antibacterial mechanism of action (substance) Sulfa (uncoded) Unknown Allergy Active Reason For Referral No Information Medications Medication SIG (Take, Route, Frequency, Duration) Notes Start Date End Date Status Vitamin D 2000 UNIT 1 tablet Orally Once a day; Duration: 30 day(s) Active Metoprolol Tartrate 50 MG 1 tablet Orally 1 po qd Active Nitroglycerin prn Active Aspirin 81 MG 1 tablet Orally Once a day Active Ambien 10 MG 1 tablet at bedtime as needed Orally Once a day Active Wellbutrin Active Ursodiol 300 MG TAKE 3 CAPSULE BY MO UTH EVERY MORNING AND 2 CAPSULE EVERY EVENING; Duration: 90 Active Terazosin HCl 5 MG 1 capsule Orally Onc e a day Active Valtrex 500 MG 2 tablets Orally 1 po qd Active Isosorbide Dinitrate 30 MG 1 tablet Oral ly Twice a day Active Biktarvy 50-200-25 MG 1 tablet Orally On ce a day; Duration: 30 day(s) 09/03/2024 Active Pifeltro Active CoQ-10 300mg 1 capsule with a cherry l Orally Once a day Active Immunizations Vaccine Route Administration Date Status Comme nts Flu vaccine no Preserv 3 and > Unknown 12/02/2013 Admin istered Influenza Unknown 10/26/2017 Administered Influenza Unknown 10/26/2018 Administered Influenza Unknown 10/26/2020 Administered Influenza Unknown 12/17/2023 Administered Social History Alcohol Screen Question Answer [...] Problem Status W/U Status Risk Notes Problem Epigastric pain (76068311) Epigastric pain (R10.13) Active confirmed Problem Screening for malignant neoplasm of colon (798907860) Encounter for screening for malignant neoplasm of colon (Z12.11) Active confirmed Problem History of adenomatous polyp of colon (938573862) History of adenomatous polyp of colon (Z86.010) Active confirmed Problem History of polyp of colon (situation) (838447660) Personal history of colonic polyps (Z86.010) Active confirmed Problem Diverticular disease of colon (284795202) Diverticulosis of large intestine without perforation or abscess without bleeding (K57.30) Active confirmed Problem Left upper quadrant pain (898902355) Left upper quadrant pain (R10.12) Active confirmed Problem Screening for malignant neoplasm of rectum (187152914) Encounter for screening for malignant neoplasm of rectum (Z12.12) Active confirmed Problem Elevated liver enzymes level (518717847) Elevated liver function tests (R79.89) Active confirmed Problem Fatty liver (316343074) Fatty liver (K76.0) Active confirmed Problem Iron excess (64192686) Iron excess (E83.19) Active confirmed Problem Rectal pain (84648235) Rectal pain (K62.89) Active confirmed Problem Hepatic fibrosis (disorder) (23319390) Liver fibrosis (K74.0) Active confirmed Problem FRIEDMAN - Nonalcoholic steatohepatitis (115241266) Steatohepatitis, nonalcoholic (K75.81) Active confirmed Problem Hepatic fibrosis (disorder) (81161135) Liver fibrosis (K74.00) Active confirmed Vital Signs Temperature 98.6 degrees Fahrenheit 09/03/2024 Blood pressure diastolic 01 mm Hg 09/03/2024 Height 67.50 in 09/03/2024 Blood pressure systolic 001 mm Hg 09/03/2024 Weight 177.2 lbs 09/03/2024 BMI 27.34 kg/m2 09/03/2024 Encounters Encounter Location Date Provider Diagnosis [facility] [address] [place] [id number] 09/03/2024 Peterson Couch Fatty liver K76.0 ; Encounter for screening for malignant neoplasm of colon Z12.11 ; Elevated liver function tests R79.89 ; Liver fibrosis K74.00 and Personal history of colonic polyps Z86.010 [facility] [address] [place] [phone] 04/03/2024 Peterson Couch [facility] [address] [place] [phone] 09/04/2024 Peterson Couch [facility] [address] [place] [phone] 11/17/2024 Peterson Couch Assessments Encounter Date Diagnosis (ICD Code) Assessment Notes Treatment Notes Treatment Clinical Notes Section Notes 09/03/2024 Fatty liver (ICD-10 - K76.0) Continue the Urosdiol. At some point we can look into the GLP-1 meds depending on the clinical course of things Overall, Mony appears very well. He does not describe any symptoms nor show any signs of progressive liver disease. His imaging studies and laboratories over the past year or so all look reassuring. Nonetheless, we did discuss the potential use of a GLP-1 for patients with significant fatty liver disease as studies are now coming out that seem to be in favor of that. However, I advised him I think would be reasonable that he have a liver biopsy first to compare to the one from 25 years ago and see how things look in that regard. That could help us determine whether or not he would be a good candidate to switch from the ursodiol and/or just add a GLP-1 medication for treatment of the fatty liver disease. I shall schedule him for an ultrasound-guide d liver biopsy along with a complete liver ultrasound with elastography. I shall also order the below lab lab work including an alpha-fetoprotei n level. In the meantime I did advise him to continue his ursodiol, watch his diet and weight, and maintain a healthy lifestyle including the avoidance of alcohol. We did review that he will be due for a follow-up colonoscopy for screening in 2027. I will plan to see him in 6 months at which time we can review his liver biopsy. I did advise him to contact me sooner if he has any problems or questions I can be of assistance with. Mony was very comfortable with this plan. Thank you again for allowing me to participate in Mony's care. I shall continue to keep you advised of his progress. 09/03/2024 Encounter for screening for malignant neoplasm of colon (ICD-10 - Z12.11) Repeat colonoscopy in 2027 Overall, Mony appears very well. He does not describe any symptoms nor show any signs of progressive liver disease. His imaging studies and laboratories over the past year or so all look reassuring. Nonetheless, we did discuss the potential use of a GLP-1 for patients with significant fatty liver disease as studies are now coming out that seem to be in favor of that. However, I advised him I think would be reasonable that he have a liver biopsy first to compare to the one from 25 years ago and see how things look in that regard. That could help us determine whether or not he would be a good candidate to switch from the ursodiol and/or just add a GLP-1 medication for treatment of the fatty liver disease. I shall schedule him for an ultrasound-guide d liver biopsy along with a complete liver ultrasound with elastography. I shall also order the below lab lab work including an alpha-fetoprotei n level. In the meantime I did advise him to continue his ursodiol, watch his diet and weight, and maintain a healthy lifestyle including the avoidance of alcohol. We did review that he will be due for a follow-up colonoscopy for screening in 2027. I will plan to see him in 6 months at which time we can review his liver biopsy. I did advise him to contact me sooner if he has any problems or questions I can be of assistance with. Mony was very comfortable with this plan. Thank you again for allowing me to participate in Mony's care. I shall continue to keep you advised of his progress. 09/03/2024 Elevated liver function tests (ICD-10 - R79.89) Overall, Mony appears very well. He does not describe any symptoms nor show any signs of progressive liver disease. His imaging studies and laboratories over the past year or so all look reassuring. Nonetheless, we did discuss the potential use of a GLP-1 for patients with significant fatty liver disease as studies are now coming out that seem to be in favor of that. However, I advised him I think would be reasonable that he have a liver biopsy first to compare to the one from 25 years ago and see how things look in that regard. That could help us determine whether or not he would be a good candidate to switch from the ursodiol and/or just add a GLP-1 medication for treatment of the fatty liver disease. I shall schedule him for an ultrasound-guide d liver biopsy along with a complete liver ultrasound with elastography. I shall also order the below lab lab work including an alpha-fetoprotei n level. In the meantime I did advise him to continue his ursodiol, watch his diet and weight, and maintain a healthy lifestyle including the avoidance of alcohol. We did review that he will be due for a follow-up colonoscopy for screening in 2027. I will plan to see him in 6 months at which time we can review his liver biopsy. I did advise him to contact me sooner if he has any problems or questions I can be of assistance with. Mony was very comfortable with this plan. Thank you again for allowing me to participate in Mony's care. I shall continue to keep you advised of his progress. 09/03/2024 Liver fibrosis (ICD-10 - K74.00) Overall, Mony appears very well. He does not describe any symptoms nor show any signs of progressive liver disease. His imaging studies and laboratories over the past year or so all look reassuring. Nonetheless, we did discuss the potential use of a GLP-1 for patients with significant fatty liver disease as studies are now coming out that seem to be in favor of that. However, I advised him I think would be reasonable that he have a liver biopsy first to compare to the one from 25 years ago and see how things look in that regard. That could help us determine whether or not he would be a good candidate to switch from the ursodiol and/or just add a GLP-1 medication for treatment of the fatty liver disease. I shall schedule him for an ultrasound-guide d liver biopsy along with a complete liver ultrasound with elastography. I shall also order the below lab lab work including an alpha-fetoprotei n level. In the meantime I did advise him to continue his ursodiol, watch his diet and weight, and maintain a healthy lifestyle including the avoidance of alcohol. We did review that he will be due for a follow-up colonoscopy for screening in 2027. I will plan to see him in 6 months at which time we can review his liver biopsy. I did advise him to contact me sooner if he has any problems or questions I can be of assistance with. Mony was very comfortable with this plan. Thank you again for allowing me to participate in Mony's care. I shall continue to keep you advised of his progress. 09/03/2024 Personal history of colonic polyps (ICD-10 - Z86.010) Overall, Mony appears very well. He does not describe any symptoms nor show any signs of progressive liver disease. His imaging studies and laboratories over the past year or so all look reassuring. Nonetheless, we did discuss the potential use of a GLP-1 for patients with significant fatty liver disease as studies are now coming out that seem to be in favor of that. However, I advised him I think would be reasonable that he have a liver biopsy first to compare to the one from 25 years ago and see how things look in that regard. That could help us determine whether or not he would be a good candidate to switch from the ursodiol and/or just add a GLP-1 medication for treatment of the fatty liver disease. I shall schedule him for an ultrasound-guide d liver biopsy along with a complete liver ultrasound with elastography. I shall also order the below lab lab work including an alpha-fetoprotei n level. In the meantime I did advise him to continue his ursodiol, watch his diet and weight, and maintain a healthy lifestyle including the avoidance of alcohol. We did review that he will be due for a follow-up colonoscopy for screening in 2027. I will plan to see him in 6 months at which time we can review his liver biopsy. I did advise him to contact me sooner if he has any problems or questions I can be of assistance with. Mony was very comfortable with this plan. Thank you again for allowing me to participate in Mony's care. I shall continue to keep you advised of his progress. Plan Of Treatment Pending Test Test Name Order Date LIVER PROFILE 05/05/2021 LIVER PROFILE 02/01/2023 LIVER PROFILE 11/06/2011 LIVER PROFILE 11/09/2015 LIVER PROFILE 09/03/2024 LIVER PROFILE 01/11/2017 LIVER PROFILE 06/10/2014 CBC w DIFF 01/11/2017 CBC w DIFF 05/05/2021 CBC w DIFF 02/01/2023 CBC w DIFF 11/09/2015 CBC w DIFF 09/03/2024 PROTHROMBIN TIME (PT, INR) 11/24/2019 PROTHROMBIN TIME (PT, INR) 05/05/2021 PROTHROMBIN TIME (PT, INR) 11/09/2015 CLOSTRIDIUM DIFF TOXIN A&B (C DIFF) 12/27 STOOL WBC 01/22/2011 ALPHA-FETOPROTEIN,TUMOR MARKER 6 ALPHA-FETOPROTEIN,TUMOR MARKER 5 ALPHA-FETOPROTEIN,TUMOR MARKER 9 ALPHA-FETOPROTEIN,TUMOR MARKER 2 ALPHA-FETOPROTEIN,TUMOR MARKER 0 ALPHA-FETOPROTEIN,TUMOR MARKER 3 ALPHA-FETOPROTEIN,TUMOR MARKER 4 ALPHA-FETOPROTEIN,TUMOR MARKER 5 CULTURE, STOOL 01/22/2011 US ABD 11/24/2019 US LIVER BIOPSY CORE GUIDE 09/03/2024 Prothrombin Time INR 09/03/2024 Partial Thromboplastin Time 09/03/2024 Alpha Fetoprotein 05/05/2021 Liver Fibrosis Pnl 09/03/2024 Liver Fibrosis Pnl 05/05/2021 US abdomen comp w elastography 3 US abdomen comp w elastography 3 US abdomen comp w elastography 5 Future Test Test Name Order Date COLONOSCOPY 11/09/2015 COLONOSCOPY 05/05/2021 Next Appt Details Provider Name:Peterson Marie Couch , 03/09[birth year]2025 09:30:00 AM, [address] [place] [address], [address], [place], [address], Insurance Providers Payer Name Payer Address Payer Phone Subscriber Number Group Number Insured Name Patient Relationship to Insured Coverage Start Date Coverage End Date [employer] MEDICARE RAILROAD MEDICARE [address] [address] [place] [phone] [id number] [employer] Self - patient is the insured [facility] [address] [place] [phone] [id number] MONY PA[employer] Self - patient is the [...] significant abnormalities Sinusitis Denies DM,CVA,Lung disease,renal disease CAD-TX in [address]---diagnosed with intermittent A.fib--sees Dr. Simmons at [facility] Gout BPH Colonoscopy 02/2016--1 tubula r adenoma removed, neg. CT colonography that same day due to inability to reach the cecum Negative colonoscopy in 02/2022 Scheduled for cardiac cath on 02/13/2023 at [facility] Surgical History Surgery Date(Month/Year) Right rotator cuff Laser prostate surgery August 03, 2015 Right elbow Appendectomy
--- OUTSIDE RECORDS SUMMARY | 2024-12-10 08:03 | XMS_ITS | Data Portability ---
Author Organization [place] - [facility], Allergy Address [address] [place] [id number] Care Team Providers Care Bread Baker Name Role Phone FOZIA BEY Primary Care [...] questions were answered. Not available 09/26/2023 14:34:43 05/12/2024 05/12/2024 Cerumen successfully removed bilaterally, which patient tolerated well. This revealed dry but intact skin. No refills needed today on the Lotrisone. We discussed use of dry ear precautions and rationale therein. Follow up in 6 months for cerumen removal, sooner with issues. Not available 05/12/2024 11:45:50 Plan of Treatment Reminders Order Date Submit Date Provider Last Modified By Organization Details Last Modified Time Details Appointments Establish ed 15 2024 01:30P M NICOLAS LOZA PA-C Not available Not available Not available Lab None recorded. Referral None recorded. Procedures None recorded. Surgeries None recorded. Imaging None recorded. Medication Orders clotrimaz ole-betam ethasone 1 %-0.05 % topical cream 2023 024 [id number], [address] [facility], [place], [place], [phone], 09/26/2023 13:20:17 Patient TargetsNo targets recorded. Patient InstructionsNo instructions recorded. Reason for Referral None Reported. Results Created Date Observation Date Name Description Value Unit Range Abnormal Flag Note LastModifiedBy Organization Detail LastModifiedTime 09/27/19 audio gram No observ ation record ed. Not Available 2023 14:42:47 10/15/1909/01/2020 imagi ng/di agnos tic resul t No [...] Name and Address Organization Details Recorded Time Diffuse otitis externa 17903413 Active 2021 Diffuse otitis externa, unspecifi ed ear; Note: Date Diagnosed : 04/06/2021 10:27 AM (H60.319) Not Available [facility] 02:27:07 Impacted cerumen in right ear 36858534224 46802 Active 2021 Impacted cerumen, right ear; Note: Date Diagnosed : 01/02/2022 9:59 AM (H61.21) Not Available [facility] 02:27:11 Sensorine ural hearing loss of bilateral ears 747148135 Active 2021 Sensorine ural hearing loss, bilateral ; Note: Date Diagnosed : 01/02/2022 10:32 AM (H90.3) Not Available [facility] 02:27:15 Chronic eczema of external auditory canal 142025628 Active 2023 Fozia jones [place] - [facility] 4 13:19:44 Impacted cerumen of bilateral ears 98801639364 89502 Active 2024 Fozia jones [place] - [facility] 5 11:28:50 Problem Notes None recorded. Procedures Surgical History Date Name Laterality Status Provider Name and Address Organization Details Recorded Time 5 Cerumen removal without microscope bilat completed Fozia Kline [place] - [facility] 05/12/2024 11:28:39 4 Air & Speech Audio with Tymps - 87657, 32783 & 52398 completed DRU TATUM [place], [facility], [address], [facility] - [facility] 09/26/2023 13:54:19 Imaging Results None recorded. Procedure Notes None recorded. Medical Equipment None Reported. Allergies Allergen ID Allergen Name Allergen Category Reaction Reaction Severity Criticality Documentation Date Start Date Code Code System Note Provider Name and Address Organization Details Recorded Time 96177 Substance with sulfonami de structure and antibacte rial mechanism of action (substanc e) medicatio n other Not available Not available 07/09/2023 42632 8003 SNOMED React ion: other react ion, Unkno wn; Not Available [facility] 4 00:56:15 Medications Name Sig Start Date Stop Date Status Note LastModified by Organization Details LastModified Time Hydromet 5 mg-1.5 mg/5 mL oral solution TAKE 5 ML BY MOUTH EVERY 4 TO 6 HOURS FOR 5 DAYS NEEDED FOR COUGH 05/12 completed Not Available Not Available Not Available terazosin 5 mg capsule TAKE 1 CAPSULE BY MOUTH AT BEDTIME active Not Available Not Available No t Available ibuprofen 800 mg tablet TAKE 1 TABLET EVERY 8 HOURS NEEDED FOR PAIN active Not Available Not Available No t Available benzonata te 200 mg capsule TAKE 1 CAPSULE BY MOUTH THREE TIMES DAILY FOR 10 DAYS FOR COUGH 05/12 completed Not Available Not Available Not Available clotrimaz ole-betam ethasone 1 %-0.05 % lotion a small amount 04/10 completed Medicati on ID: [id number] D uration Value: 14 Prescri bed By Name: Peterson dukes MD Brand Name: guanakito mckee Send Method: E-Prescr ibed Sub s Allowed: subs OK Speci al Instruct ion: Apply with finger to ear canal skin. Me dication GenericN tom: clotrilaura bartlett-phoenix ammikaylao ne Not Available Not Available Not Available [...] TAKE 1 TABLET BY MOUTH TWICE DAILY 05/12 completed Not Available Not Available Not Available tramadol 50 mg tablet 2021 active Medicati on ID: [id number] B rand Name: tramadol Send Method: E-Prescr [...] Not Available Not Available No t Available oseltamiv ir 75 mg capsule TAKE 1 CAPSULE BY MOUTH TWICE DAILY FOR 5 DAYS 05/12 completed Not Available Not Available Not Available clotrimaz ole-betam ethasone 1 %-0.05 % topical cream APPLY TOPICALL Y TO THE AFFECTED AND SURROUND ING AREAS TWICE DAILY IN THE MORNING AND IN THE EVENING FOR 2 WEEKS active Not Available Not Available No t Available ursodiol 300 mg capsule TAKE 3 CAPSULES BY MOUTH EVERY MORNING AND 2 CAPSULES EVERY EVENING active Not Available Not Available No t Available clotrimaz ole 1 % topical solution 04/10 completed Medicati on ID: [id number] P rescribe d By Name: Peterson dukes MD Brand Name: guanakito bartlett Pablito d Method: E-Prescr ibed Sub s Allowed: [...] a day 2021 active Medicati on ID: [id number] D uration Value: 30 Prescri bed By Name: Peterson dukes MD Brand Name: betameth asone dipropio sharron Pablito d Method: E-Prescr ibed Sub s Allowed: subs OK Speci al Instruct ion: apply to ear canal Me dication GenericN tom: betameth asone dipropio sharron Not Available Not Available Not Available amoxicill in 250 mg capsule TAKE 1 CAPSULE EVERY 8 HOURS UNTIL FINISHED active Not Available Not Available No t Available metoprolo l succinate ER 25 mg [...] a day 2021 active Medicati on ID: [id number] D uration Value: 30 Prescri bed By Name: Peterson dukes MD Brand Name: clotrima tri Kenney d Method: E-Prescr ibed Sub s Allowed: subs OK Speci al Instruct ion: ear canal Me dication GenericN tom: clotrima zole Not Available Not Available Not Available amoxicill in 875 mg-potass ium clavulana te 125 mg tablet 05/12 completed Medicati on ID: [id number] B rand Name: amoxicil gavi-pot clavulan ate Send Method: E-Prescr ibed Sub s Allowed: subs OK Speci al Instruct ion: TAKE 1 TABLET BY MOUTH EVERY 12 HOURS FOR 7 DAYS Med icationG enericNa me: amoxicil gavi-pot clavulan ate Not Available Not Available Not Available amoxicill in 500 mg-potass ium clavulana te 125 mg tablet TAKE 1 TABLET BY MOUTH EVERY 12 HOURS 05/12 completed Not Available Not Available Not Available oxycodone 5 mg tablet 2021 active Medicati on ID: [id number] B rand Name: oxycodon e Send Method: E-Prescr ibed Sub s Allowed: subs OK Medic ationGen ericName : oxycodon e Not Available Not Available Not Available bupropion HCl SR 200 mg tablet,12 hr sustained -release TAKE 1 TABLET BY MOUTH EVERY EVENING active Not Available Not Available No t Available DermOtic Oil 0.01 % ear drops 2021 active Medicati on ID: [id number] D uration Value: 30 Brand Name: DermOtic [...] ,extended release 2021 active Medicati on ID: [id number] B rand Name: OxyConti n Send Method: E-Prescr ibed Sub s Allowed: subs OK Medic ationGen ericName : OxyConti n Not Available Not Available Not Available Genvoya 150 mg-150 mg-200 mg-10 mg tablet 2021 active Medicati on ID: [id number] B rand Name: Genvoya Send Method: E-Prescr [...] and Address Organization Details Last Updated DateTime 05/12/2024 167.64 cm 28.2 kg/m2 58481.66 g Radha Pacheco [place] [facility] 05/12/2024 11:15:49 Date Recorded Body height Body mass index (BMI) Body weight Provider Name and Address Organization Details Last Updated DateTime 09/26/2023 167.64 cm 28.2 kg/m2 50250.66 g Travis Araujo [place] [facility] 09/26/2023 13:09:44 Social History None recorded. Functional Status None recorded. Mental Status None recorded. Family History Nothing Reported. Medical History No medical history recorded. Past Encounters Encounter ID Performer Location Encounter Start Date Encounter Closed Date Diagnosis/Indication Diagnosis SNOMED-CT Code Diagnosis ICD10 Code Diagnosis IMO Codes Diagnosis Note [id number] FOZIA KLINE PA-C [facility] [address] [address] 09/26/2023 12:47:10 09/26/2023 14:22:55 Chronic eczema of external auditory canal 554003973 H60.8X9 Sensorineu ral hearing loss of bilateral ears 817694076 H90.3 Audiologic al evaluation results: Right ear: Normal thru 2000Hz sloping to a mild-moder ate SNHL with excellent word recognitio n. Left ear: Normal through 1500Hz sloing to a mild tp severe SNHL with excellent word recognitio n. Tympanomet ry: Right Ear:Type A Left Ear:Type Ad [id number] FOZIA KLINE PA-C [facility] [address] [address] 05/12/2024 11:09:23 05/12/2024 11:28:25 Impacted cerumen of bilateral ears 9720020627 095561 H61.23 Chronic ec zema of external auditory canal 654188705 H60.8X9 Health Concerns Section Related Observation LastModified by Organization Detai ls LastModified Time None Recorded Concern Status LastModified by Organization Details LastModified Time None Recorded Advance Directives Directive None Recorded Payers Insurance Date Sequence Insurance Name Policy Number Policy Lutz Covered Member ID Lutz Member ID Guarantor Name 04/08/2024 1 SMITH IVY - MEDICARE-[facility] HALFWAY BOARD (MEDICARE) Kip Chapman [id number] Kip Chapman 11/08/2024 2 [place]: [facility] Kip Chapman [id number] Kip Chapman 11/08/2024 1 SMITH A - MEDICARE-[address] HALFWAY BOARD (MEDICARE) Kip Chapman [id number] Kip Chapman Notes Date Note Type Note Provider Name and Address Organization Details Recorded Time 09/26/2023 text/html ROS as noted in the HPI 58 year old male presents for evaluation [...] that worked very well. MISHEL BURR MD [address] [place] [address], [phone], [facility] 09/27/2023 09:16:25 05/12/2024 text/html ROS as noted in the HPI 59 year old male presents for evaluation of ears. Reports they have been feeling good. He now avoids Q-tips and has significantly less itching. The drops and cream work well for flare ups and he does not need refills. He believes he has some cerumen today that he would like removed. There is no pain and no otorrhea. No tinnitus. NATALYA ABREU MD [address] [place] [address],[address], [address], [facility] 05/12/2024 17:42:23
[2024-12-10 08:31] LABS: MANUAL DIFF FLAG NO
[2024-12-10 08:47] LABS: Hematocrit 54.0 % (42.0-52.0); Hemoglobin 18.8 g/dl (14.0-18.0); Imm Gran Abs Auto 0.03 X10*3/uL (0.00-0.03); Imm Gran Pct Auto 0.5 % (0.0-0.4); Lymphocytes Absolute Auto 2.0 X10*3/uL (1.2-4.9); Mean Corpuscular HGB Conc 34.8 g/dl (31.0-36.0); Mean Corpuscular Hemoglobin 33.2 pg (27.0-33.0); Mean Corpuscular Volume 95.2 fL (80.0-98.0); NRBC Abs Auto 0.000 X10*3/uL (0.0-0.012); NRBC Pct Auto 0.0 /100WBC (0.0-0.2); Platelet Count 173 X10*3/uL (160-400); Red Blood Count 5.67 X10*6/uL (4.60-5.80); White Blood Count 5.8 X10*3/uL (4.8-10.8)
[2024-12-10 09:01] LABS: INTERNATIONAL NORM RATIO 1.1 (0.9-1.1); Partial Thromboplastin Time 38.6 SEC (26.7-34.1); Prothrombin Time 12.1 SEC (10.9-12.4)
[2024-12-10 09:15] LABS: Anion Gap 11 (12-20); Blood Urea Nitrogen 22 mg/dL (9-16); Calcium 9.8 mg/dL (8.4-10.2); Carbon Dioxide 31 mmol/L (22-29); Chloride 105 mmol/L (96-108); Estimated Glomerular Filt Rate 51; Potassium 4.7 mmol/L (3.3-5.1); Sodium 142 mmol/L (135-145)
[2024-12-10 09:20] LABS: Albumin Level 5.0 g/dL (3.5-5.0); Alkaline Phosphatase 52 U/L (39-117); Aspartate Amino Transferase 40 U/L (5-37); Total Protein 7.5 g/dL (6.5-8.0)
[2024-12-10 10:21] LABS: Alanine Aminotransferase 42 U/L (0-40)
[2024-12-10 11:36] LABS: HIV Num 3 617.17 S/CO
[2024-12-12 15:08] LABS: HIV 1 Antibody POSITIVE (NEGATIVE); HIV 2 Antibody NEGATIVE (NEGATIVE)
[2024-12-15 17:49] LABS: Absolute CD3 Count 1524 cells/uL (840-3060); Absolute CD8 Count 551 cells/uL (180-1170); Percent CD3 Cells 84 % (57-85); Percent CD8 Cells 31 % (12-42)
[2024-12-16 16:28] LABS: FIB-ALT 24 U/L (9-46); FIB-Alpha-2-Macroglobulin 320 mg/dL (106-279); FIB-Apolipoprotein A1 140 mg/dL (94-176); FIB-GGT 20 U/L (3-85); FIB-Haptoglobin 56 mg/dL (43-212); FIB-Total Bilirubin 0.6 mg/dL (0.2-1.2); Liver Fibrosis Score 0.61; Liver Fibrosis Stage F3; Nec Inflam Act Grade A0; Nec Inflam Act Score 0.16
== END 2024-12-10 08:00 | disposition home or self-care (01) ==
LOC: HO.LAB 07:59
PROVIDERS: Absent Provider Internal Medicine; PCP Internal Medicine; Referring Provider Internal Medicine Infectious Disease; Visit Provider Internal Medicine
DX: K76.0 Fatty (change of) liver, not elsewhere classified (principal); R79.89 Other specified abnormal findings of blood chemistry; K74.00 Hepatic fibrosis, unspecified; B20 Human immunodeficiency virus [HIV] disease
CPT/HCPCS: 36415; 80048; 80076; 81596; 82105; 85025; 85610; 85730; 86355; 86357; 86359; 86360; 86701; 86702; 87389

== ENCOUNTER 2024-12-23 14:37 | Outpatient (AMB) | payer MEDICARE, MEDICAID, SELFPAY ==
--- OUTSIDE RECORDS SUMMARY | 2024-05-05 06:30 | XMS_ITS ---
Author Organization [facility] Address [address] [place] [phone] Care Team Providers Care Automatic Lump Making Machine Tender Name Role Phone Chasity Ellison MD Primary Care Provider Peterson Shah [phone] REASON FOR VISIT Patient presents today for LIVER FIBROSIS Encounters Encounter Location Date Provider Diagnosis [facility] [address] [facility] [address] [place] [phone] 05/05/2024 Peterson Couch Plan Of Treatment Next Appt Details Provider Name:Peterson Couch , 03/09/2025 09:30:00 AM, [address], [address], [place], [address], Progress Notes * NORA PAINTINGOB:1965 (59 yo M)Acc No.[id number]:05/05/2024 Progress Notes Patient: MONY YA Provider: Juan Couch MD :1965 A ge:59 Y S ex:Male Date:05/05/2024 Address:[address] [place], [place] [phone] Pcp:Chasity Ellison MD Subjective: * Chief Complaints: [...] 05/05/2024 Generated for Wilmer umana/Sharona/Christie on: 1 07:00 PM EDT
[2024-12-23 14:44] VITALS: BP 124/70; PULSE 78; TEMP 36.3; O2SAT 97; BMI 28.2
--- NOTE | 2024-12-23 14:44 | MHC.PC.OV ---
Vital Signs 12/23/24 14:44 Height 5 ft 6 in Weight 174 lb 8 oz BMI 28.2 BP 124/70 Blood Pressure Location Lt brachial Position Sitting Pulse 78 Pulse Source Pulse Oximeter Temp 97.3 F Temp Source Temporal Artery Scan Pulse Oximetry (%) 97 Oxygen Delivery Method Room Air Intake Visit Reasons: Annual Exam Allergies Sulfa (Sulfonamide Antibiotics) (SULFA (SULFONAMIDE ANTIBIOTICS)) Allergy (Unknown, Verified 12/23/24 14:47) UNKNOWN pitavastatin Adverse Reaction (Intermediate, Verified 12/23/24 14:47) Chest Pain Medication List - Last Reconciled 12/23/24 by Chasity Ellison MD aspirin (Adult Aspirin Regimen) 81 mg PO DAILY ptgqdxqtu-rbpfpdvx-tqmjuia ala 50-200-25 mg (Biktarvy) 1 tab PO DAILY bupropion HCl SR 200 mg PO QPM 90 days cholecalciferol (vitamin D3) 125 mcg PO QPM coenzyme Q10 (CoQ-10) 300 mg PO QAM doravirine (Pifeltro) 100 mg PO DAILY hydrocortisone 2.5% (Proctozone-HC) 1 appl CO BID-QID PRN isosorbide mononitrate ER 30 mg PO DAILY menthol-zinc oxide 0.44-20.6 % (Calmoseptine) 1 appl topical QID PRN metoprolol succinate ER 12.5 mg (1/2 x 25 mg) PO DAILY 90 days nitroglycerin mg sublingual terazosin 5 mg PO BEDTIME 90 days ursodiol 900 mg PO QAM ursodiol 3 tabs in am and 2 at night orally; valacyclovir 500 mg PO .QD zolpidem 10 mg PO BEDTIME 90 days Tobacco use date assessed: 12/23/24 Dental Screening Dental Screen Date: 12/23/24 Did you have a dental visit in the last 12 months?: Yes Did you have a dental problem in the last 6 months where you did not have access to dental care?: No Was dental information given to patient?: Patient has dentist [facility] Medical History Hemorrhoids with complication Hx of atrial fibrillation without current medication FHx: atrial fibrillation Arrhythmia Myocardial infarction Bradycardia Bradyarrhythmia Internal and external hemorrhoids without complication Urinary frequency Paroxysmal atrial fibrillation Atherosclerotic cardiovascular disease Fatty liver Anxiety and depression COVID-19 vaccine series completed Bilateral shoulder bursitis Avascular necrosis of bones of both hips HIV (human immunodeficiency virus infection) Avascular necrosis Hip pain Hypertension HIV (human immunodeficiency virus infection) Surgical History Hx of colonoscopy Hx of shoulder surgery History of rotator cuff surgery History of elbow surgery H/O heart artery stent Hx of tonsillectomy History of appendectomy Family History Father Myocardial infarct Mother Skin cancer Brother Myocardial infarct Paternal Grandfather Myocardial infarct Maternal Grandfather Myocardial infarct Social History Housing: Apartment Alcohol intake: never Patient Tobacco Use Status: Never used Tobacco Tobacco use type: Cigarette Years Smoked: marijuana smoking e-Cigarette/Vaping Use: Never Used Second Hand Smoke Exposure: No Current occupational status: disabled Current occupation: Right Handed Cognitive needs: No Hearing needs: No Vision needs: No Questionnaire PHQ-9 Over the last 2 weeks, how often have you been bothered by any of the following problems? 1. Little interest or pleasure in doing things: not at all 2. Feeling down, depressed, or hopeless: not at all 3. Trouble falling or staying asleep, or sleeping too much: not at all 4. Feeling tired or having little energy: not at all 5. Poor appetite or overeating: not at all 6. Feeling bad about yourself - or that you are a failure or have let yourself or your family down: not at all 7. Trouble concentrating on things, such as reading the newspaper or watching television: not at all 8. Moving or speaking so slowly that other people could have noticed. Or the opposite - being so fidgety or restless that you have been moving around a lot more than usual: not at all 9. Thoughts that you would be better off or of hurting yourself in some way: not at all Total score: 0 Depression Screening Interpretation: Negative Depression Screening Done: Yes Source: Developed by Drs. Peterson Lockhart, Kristen Alfred, Star Lucas and colleagues, with an educational lisa from [employer]. Thrive Questionnaire Date Thrive assessed: 03/18/24 I am a: Patient What is your living situation today?: I have a steady place to live Within the past 12 months, did the food you bought not last and you didn't have the money to get more?: Never true Within the past 12 months, did you worry whether your food would run out before you got money to buy more?: Never true Do you have trouble paying for medicines?: No Do you have trouble getting transportation to medical appointments?: No Do you have trouble paying your heating and electricity bill?: No Do you have trouble taking care of your child, family member or friend?: No Do you have trouble with day-to-day activities such as bathing, preparing meals, shopping, managing finances, etc.?: No Are you currently unemployed and looking for a job?: No Are you interested in more education?: No Please select the resources that you would like help with: None Currently or been in a relationship where the following occur: No concerns reported THRIVE Score: 0 AUDIT C Alcohol Use Questionnaire (AUDIT-C) 1. How often do you have a drink containing alcohol?: Never 3. How often do you have six or more drinks on one occasion?: Never Total Score: 0 MERCEDEZ-7 AMB Questionnaire MERCEDEZ-7 Date MERCEDEZ - 7 assessed: 03/18/24 Feeling nervous, anxious, or on edge: 0 = Not at all Not being able to stop or control worryin = Not at all Worrying too much about different things: 0 = Not at all Trouble relaxin = Not at all Being so restless that it is hard to sit still: 0 = Not at all Becoming easily annoyed or irritable: 0 = Not at all Feeling afraid as if something awful might happen: 0 = Not at all Total MERCEDEZ-7 score (0-4 normal; 5-9 mild; 10-14 moderate; 15-21 severe): 0 Source: Developed by Drs. Peterson Lockhart, Kristen Alfred, Star Lucas and colleagues, with an educational lisa from [employer]. Review of Systems Const Denies poor appetite and Denies weakness Eyes Denies no additional complaints ENT Reports Normal hearing present, Denies dizziness, Denies nasal congestion, Denies tinnitus and Denies sore throat Card Denies chest pain, Denies syncope, Denies rapid heart rate and Denies dyspnea Resp Denies cough and Denies dyspnea GI Denies change in stool character, Reports constipation, Denies diarrhea, Denies nausea and Denies vomiting Denies dysuria and Denies urinary frequency Neuro Reports Normal hearing present, Denies confusion, Denies dizziness, Denies syncope and Denies weakness Psych Denies confusion Physical exam (Primary Care) Vital Signs: Last Vital Signs Temp 97.3 F 12/23/24 14:44 Pulse 78 12/23/24 14:44 BP 124/70 12/23/24 14:44 Pulse Ox 97 12/23/24 14:44 Oxygen Delivery Method Room Air 12/23/24 14:44 BMI result Body Mass Index 28.2 Tobacco/Smoking Status: Tobacco use Status Tobacco use date assessed 12/23/24 12/23/24 14:48 Patient Tobacco Use Status Never used Tobacco 12/23/24 14:48 Tobacco use type Cigarette 12/23/24 14:48 e-Cigarette/Vaping Use Never Used 12/23/24 14:48 PHQ-9: PHQ-9 Score PHQ-9: Total score 0 12/23/24 14:48 Depression Screening Interpretation: Negative Thrive Assessment: Date of Thrive Assessment Date Thrive assessed 03/18/24 12/23/24 14:48 Currently or been in a relationship where the following occur: No concerns reported Const General: No confusion Orientation/consciousness: No confusion HENMT Head: Yes normocephalic Ears: external ears normal and TM's normal bilaterally Face and sinus: Yes normal facial exam Mouth: moist mucous membranes Throat: Yes tonsils normal Eyes Conjunctivae: conjunctivae normal Pupils: Equal, round and reactive pupils present and Pupil accommodation reflex normal Direct Ophthalmoscopy: normal light reflex Neck Neck: No lymphadenopathy Thyroid: Thyroid normal Chest Chest palpation & inspection: normal inspection of the chest Resp Effort & Inspection: normal respiratory effort and no audible wheezes Auscultation: clear to auscultation bilaterally, no crackles, no wheezes and lung sounds not diminished Cardio Rate: regular rate Rhythm: regular rhythm Peripheral pulses: radial pulses present and dorsalis pedis present GI Other: declined rectal Palpation (GI): no masses Auscultation: normal bowel sounds and normoactive bowel sounds Rectal Exam - Male: Yes deferred Other: declined Skin General skin exam: no rashes or lesions noted Rashes: no rashes Neuro General: No confusion Cranial nerves: Yes Equal, round and reactive pupils present and Yes Normal hearing present Cognition (Neuro): normal cognition Gait exam (Neuro): Normal gait present Motor exam (neuro): 5/5 motor strength present throughout Deep tendon reflexes (DTR's): Right brachioradialis reflex intensity grade: 2+, Left brachioradialis reflex intensity grade: 2+, Right patellar reflex intensity grade: 2+ and Left patellar reflex intensity grade: 2+ Extrem General: No edema Coding Level of Care Code Est Pt Prev Care 40-64y(64441) Diagnoses Annual physical exam Z00.00 Atherosclerotic cardiovascular disease I25.10 Paroxysmal atrial fibrillation I48.0 Hypercholesterolemia E78.00 Urinary retention R33.9 Asymptomatic HIV infection, with no history of HIV-related illness Z21 HIV symptom status: asymptomatic, with no history of HIV-related illness Assessment & Plan Assessment & Plan (1) Annual physical exam: Code(s): Z00.00 - Encounter for general adult medical examination without abnormal findings Category: Medical Plan: Patient is advised to eat healthy, keep well hydrated, keep active and have adequate sleep. (2) Atherosclerotic cardiovascular disease: Code(s): I25.10 - Atherosclerotic heart disease of [place] coronary artery without angina pectoris Category: Medical Plan: Control the cholesterol, weight, blood pressure, continue with aspirin 81 mg once a day (3) Paroxysmal atrial fibrillation: Comment: Holter done July 2020 showing pauses of more than 4 seconds but patient is not symptomatic Code(s): I48.0 - Paroxysmal atrial fibrillation Category: Medical Plan: Low chads Vasc score. Maintained on aspirin (4) Hypercholesterolemia: Code(s): E78.00 - Pure hypercholesterolemia, unspecified Category: Medical Plan: Avoid fried foods, chicken skin, eggs, butter margarine, pastries and meat. Be it pork or beef they have a lot of cholesterol LDL goal of less than 70 and triglyceride of less than 150 will need blood work (5) Urinary retention: Code(s): R33.9 - Retention of urine, unspecified Category: Medical Plan: Patient follows up with urology patient is taking terazosin (6) HIV (human immunodeficiency virus infection): Comment: He is doing well and labs are pending Code(s): B20 - Human immunodeficiency virus [HIV] disease Category: Medical Qualifiers: HIV symptom status: asymptomatic, with no history of HIV-related illness Qualified Code(s): Z21 - Asymptomatic human immunodeficiency virus [HIV] infection status Plan: Patient is being followed up by Infectious Disease. Plan History of Present Illness The patient is a 59-year-old overweight male presenting for a physical exam. A 6-pound weight loss has been noted. His past medical history is significant for HIV, avascular necrosis of both hips, atherosclerotic cardiovascular disease, atrial fibrillation, coronary artery disease, and hypercholesterolemia. Regarding his cardiac history, the patient had acute coronary syndrome with a limited inferior wall myocardial infarction and a critical mid-right coronary artery lesion, which was dilated and stented. He developed in-stent stenosis in January 2023. He was seen by cardiology in March, and a monitor showed atrial fibrillation with two pauses over 3 seconds. During a hospitalization, he had atrial fibrillation with a slow ventricular response of 33-35 bpm. Metoprolol was discontinued due to the slow ventricular response, and he has been maintained on aspirin. He also reported chest pain 7 days after starting pravastatin. The patient has been seen by gastroenterology for liver fibrosis and was advised to get a liver biopsy. He has also been seen by urology for urinary urgency, with a post-void residual of 63, and he is taking terazosin. He is followed by hematology and infectious disease specialists. Health maintenance includes a normal bone density scan in 2019 and a normal colon test in February 2022. Health Maintenance - Last physical exam was in February 2024. - Bone density scan was performed in 2019 and was normal. - Last colon test was in February 2022. - The patient is followed by urology, hematology, and infectious disease specialists. Social History Review of Systems - Constitutional: Reports a 6-pound weight loss. - Respiratory: Reports cough. - Genitourinary: Reports urinary urgency. - Cardiovascular: Reports a history of chest pain which occurred 7 days after initiating pravastatin. Physical Exam General: Cooperative, overweight male, healthy appearing, comfortable, no acute distress and well developed Orientation: Patient oriented x3 Limitations: No limitations Head: Normal to inspection Ears: Hearing grossly normal bilaterally Nose: Normal external nose present Face and sinus: Normal facial exam Eyes: Appearance normal, both eyes and all related structures Neck: Normal visual inspection and Yes full ROM Respiratory: Normal respiratory effort and able to speak in complete sentences. Clear to auscultation bilaterally Cardiovascular: Regular rate and rhythm. Normal S1 and S2 GI: Normal to inspection. Soft to palpation and nontender Skin: No rashes or lesions noted Neuro: Patient oriented x3 Extremities: Normal to inspection Results - Labs from December 10 show erythrocytosis with hemoglobin of 18.8 and hematocrit of 54. - Electrolytes were normal. - Creatinine was 1.42. - Glucose was normal. - Liver function tests were noted to be elevated. - Alpha-fetoprotein was low. - LDL was last tested in February 2024. - monitoring tech showed atrial fibrillation with 2 pauses over 3 seconds. - Post-void residual (PVR) was 63 mL. - Bone density scan in 2019 was normal. - Colon test in February 2022 was noted. Plan Patient was informed and verbally consented to the use of an ambient scribe for clinic note documentation during this visit. 1. Coronary Artery Disease The patient will continue aspirin 81 mg once a day for management of coronary artery disease. 2. Atrial Fibrillation Due to a low CHADS-VASc score, the patient will be maintained on aspirin. 3. Hypercholesterolemia The treatment goals are an LDL less than 70 and triglycerides less than 150. The patient will need follow-up blood work. 4. Urinary Urgency The patient will continue taking terazosin and will follow up with urology. 5. Erythrocytosis The patient is being followed by a bacteriology technician for this condition. 6. Liver Fibrosis The patient is being followed by a mental health technician and has been advised to undergo a liver biopsy. 7. Hiv Infection The patient is being followed by an infectious disease specialist. Discussion Notes I have reviewed the patient's extensive medical history, including his recent cardiology, gastroenterology, and urology consultations. We discussed the current management plan, which includes continuing aspirin 81 mg for his coronary artery disease and atrial fibrillation, given his low CHADS-VASc score. I advised that he will need repeat blood work to monitor his cholesterol, with a goal LDL of less than 70 and triglycerides less than 150. We noted that he will continue to follow up with his specialists, including urology for his urinary symptoms on terazosin, hematology for erythrocytosis, and infectious disease for HIV management. We also reviewed the recommendation from gastroenterology for a liver biopsy to evaluate his liver fibrosis. Patient Instructions - Continue taking your aspirin 81 mg tablet once a day. - Continue taking your terazosin as prescribed for urinary symptoms. - You will need to get blood work done to check your cholesterol levels. - Please follow up with your urology, hematology, and infectious disease doctors as planned. - Your mental health technician recommended a liver biopsy to check on your liver fibrosis. Please consider scheduling this procedure. Medications: Changed From valacyclovir 500 mg PO .QD To valacyclovir 500 mg PO BID 180 tabs 0RF 90 days Refilled zolpidem 10 mg PO BEDTIME 90 tabs 0RF 90 days
--- OUTSIDE RECORDS SUMMARY | 2024-12-23 19:00 | XMS_ITS | Data Portability ---
Author Organization [place] [facility], Allergy Address [address] [place] [id number] Care Team Providers Care Senior Assistant Manager Name Role Phone FOZIA BEY Primary Care [...] topical cream 2023 024 [id number], [address], [place], [place], [id number], 09/26/2023 13:20:17 Patient TargetsNo targets recorded. Patient [...] Organization Details Recorded Time Diffuse otitis externa 49702738 Active 2021 Diffuse otitis externa, unspecifi ed ear; Note: Date Diagnosed : 04/06/2021 10:27 AM (H60.319) Not Available [facility] 02:27:07 Impacted cerumen in right ear 40658105684 19022 Active 2021 Impacted cerumen, right ear; Note: Date Diagnosed : 01/02/2022 9:59 AM (H61.21) Not Available [facility] 02:27:11 Sensorine ural hearing loss of bilateral ears 520855514 Active 2021 Sensorine ural hearing loss, bilateral ; Note: Date Diagnosed : 01/02/2022 10:32 AM (H90.3) Not Available [facility] 02:27:15 Chronic eczema of external auditory canal 916996653 Active 2023 Fozia jones [place] - [facility] 4 13:19:44 Impacted cerumen of bilateral ears 28483010061 98033 Active 2024 Fozia jones [place] [facility] 5 11:28:50 Problem Notes None recorded. Procedures Surgical History Date Name Laterality Status Provider Name and Address Organization Details Recorded Time 5 Cerumen removal without microscope bilat completed Fozia Kline [place] [facility] 05/12/2024 11:28:39 4 Air & Speech Audio with Tymps - 35009, 08068 & 17666 completed DRU TATUM [place], [facility], [phone], [facility] - [facility] 09/26/2023 13:54:19 Imaging Results None recorded. Procedure Notes None recorded. Medical Equipment None Reported. Allergies Allergen ID Allergen Name Allergen Category Reaction Reaction Severity Criticality Documentation Date Start Date Code Code System Note Provider Name and Address Organization Details Recorded Time 22287 Substance with sulfonami de structure and antibacte rial mechanism of action (substanc e) medicatio n other Not available Not available 07/09/2023 05005 8003 SNOMED React ion: other react ion, Unkno wn; Not Available [facility] 4 00:56:15 Medications Name Sig Start Date [...] small amount 04/10 completed Medicati on ID: [id number] D uration Value: 14 Prescri bed By [...] mg tablet 2021 active Medicati on ID: [id number] B rand Name: tramadol Send Method: E-Prescr [...] topical solution 04/10 completed Medicati on ID: [id number] P rescribe d By Name: Peterson dukes [...] a day 2021 active Medicati on ID: [id number] D uration Value: 30 Prescri bed By [...] a day 2021 active Medicati on ID: [id number] D uration Value: 30 Prescri bed By Name: Peterson dukes MD Brand Name: clotrima tri [place] d Method: E-Prescr ibed Sub s Allowed: subs OK Speci al Instruct ion: ear canal Me dication GenericN tom: clotrima zole Not Available Not Available Not Available amoxicill in 875 mg-potass ium clavulana te 125 mg tablet 05/12 completed Medicati on ID: [id number] B rand Name: amoxicil gavi-pot clavulan ate [...] mg tablet 2021 active Medicati on ID: [id number] B rand Name: oxycodon e Send Method: E-Prescr ibed Sub s Allowed: subs OK Medic ationGen ericName : oxycodon e Not Available Not Available Not Available bupropion HCl SR 200 mg tablet,12 hr sustained -release TAKE 1 TABLET BY MOUTH EVERY EVENING active Not Available Not Available No t Available DermOtic Oil 0.01 % ear drops 2021 active Medicati on ID: [id number] D uration Value: 30 Brand Name: DermOtic [...] ,extended release 2021 active Medicati on ID: [id number] B rand Name: OxyConti n Send Method: E-Prescr ibed Sub s Allowed: subs OK Medic ationGen ericName : OxyConti n Not Available Not Available Not Available Genvoya 150 mg-150 mg-200 mg-10 mg tablet 2021 active Medicati on ID: [id number] B rand Name: Genvoya Send Method: E-Prescr [...] Updated DateTime 05/12/2024 167.64 cm 28.2 kg/m2 66221.66 g Radha Pacheco [place] [facility] 05/12/2024 11:15:49 Date Recorded Body height Body mass index (BMI) Body weight Provider Name and Address Organization Details Last Updated DateTime 09/26/2023 167.64 cm 28.2 kg/m2 79368.66 g Travis Araujo [place] [facility] 09/26/2023 13:09:44 Social History None recorded. Functional Status None recorded. Mental Status None recorded. Family History Nothing Reported. Medical History No medical history recorded. Past Encounters Encounter ID Performer Location Encounter Start Date Encounter Closed Date Diagnosis/Indication Diagnosis SNOMED-CT Code Diagnosis ICD10 Code Diagnosis IMO Codes Diagnosis Note [id number] FOZIA KLINE PA-C [facility] [address] [id number] 09/26/2023 12:47:10 09/26/2023 14:22:55 Chronic eczema of external auditory canal 807792659 H60.8X9 Sensorineu ral hearing loss of bilateral ears 958155579 H90.3 Audiologic al evaluation results: Right ear: Normal thru 2000Hz sloping to a mild-moder ate SNHL with excellent word recognitio n. Left ear: Normal through 1500Hz sloing to a mild tp severe SNHL with excellent word recognitio n. Tympanomet ry: Right Ear:Type A Left Ear:Type Ad [id number] FOZIA KLINE PA-C [facility] [address] [phone] 05/12/2024 11:09:23 05/12/2024 11:28:25 Impacted cerumen of bilateral ears [id number] 054869 H61.23 Chronic ec zema of external auditory canal 189009868 H60.8X9 Health Concerns Section Related Observation LastModified by Organization Detai ls LastModified Time None Recorded Concern Status LastModified by Organization Details LastModified Time None Recorded Advance Directives Directive None Recorded Payers Insurance Date Sequence Insurance Name Policy Number Policy Lutz Covered Member ID Lutz Member ID Guarantor Name 04/08/2024 1 SMITH IVY - [facility]ICARE-[facility] JAIL BOARD (MEDICARE) Kip Chapman [id number] Kip Chapman 11/08/2024 2 [place] [facility] Kip Chapman [id number] Kip Chapman 11/08/2024 1 SMITH A - MEDICARE-[address] JAIL BOARD (MEDICARE) Kip Chapman [id number] Kip Chapman Notes Date Note Type Note [...] that worked very well. MISHEL BURR MD [address] [place] [address], [phone], [facility] 09/27/2023 09:16:25 05/12/2024 text/html ROS as [...] no otorrhea. No tinnitus. NATALYA ABREU MD [address] [place] [address],[address], [phone], [facility] 05/12/2024 17:42:23
--- OUTSIDE RECORDS SUMMARY | 2024-12-23 19:00 | XMS_ITS | Patient Health Record ---
Author Organization [facility] Address [address] [place] [address] Care Team Providers Care Egyptologist Name Role Phone Chasity Ellison MD Primary Care Provider Peterson Shah [phone] Allergies Allergen (clinical drug ingredient) Drug/Non Drug Allergy documented on EMR Reaction Allergy Type Onset Date Status Substance with sulfonamide structure and antibacterial mechanism of action (substance) Sulfa (uncoded) Unknown Allergy Active Results Component Value Reference Range Notes Prothrombin Time INR Reviewed date:12/14/2024 04:06:42 PM Interpretation: Performing Lab:[address] [address] Notes/Report: Prothrombin Time 12.1 10.9-12.4 SEC INTERNATIONAL NORM RATIO 1.1 0.9-1.1 INTERNATIONAL NORMALIZED RATIO (INR) REFERENCE RANGES [...] mechanical prosthetic heart valves: 2.5 - 3.5 Partial Thromboplastin Time Reviewed date:12/14/2024 04:06:35 PM Interpretation: Performing Lab:[address] [address] Notes/Report: Partial Thromboplastin Time 38.6 26.7-34.1 SEC Liver Panel Reviewed date:12/14/2024 04:06:16 PM Interpretation: Performing Lab:[address], [place] [address] Notes/Report: Bilirubin Total 0.7 0.0-1.0 mg/dL Bilirubin Direct 0.2 0.0-0.5 mg/dL Aspartate Amino Transferase 40 5-37 U/L Alanine Aminotransferase 42 0-40 U/L Total Protein 7.5 6.5-8.0 g/dL Albumin Level 5.0 3.5-5.0 g/dL Alkaline Phosphatase 52 39-117 U/L Alpha Fetoprotein Reviewed date:12/17/2024 11:16:20 AM Interpretation: Performing Lab:[address] [address] Notes/Report: Alpha Fetoprotein 3.8 <6.1 ng/mL This test was performed using the Bran [place] chemiluminescent method. Values obtained from different assay methods cannot be used interchangeably. AFP levels, regardless of value, should not be interpreted as absolute evidence of the presence or absence of disease. THIS TEST WAS PERFORMED AT: [employer] [address] [place] [id number] VALERI ALLEN MD Liver Fibrosis Pnl (Not yet reviewed by provider) Interpretation: Performing Lab:[address] [address] Notes/Report: Liver Fibrosis Score 0.61 Liver Fibrosis Stage F3 Liver Fibrosis Interpretation [...] F4 (severe fibrosis) Nec Inflam Act Score 0.16 Nec Inflam Act Grade A0 Nec Inflam Act Interpretation SEE NOTE no activity ActiTest Score (a) Metavir Score a>=0 and a<=0.17 : A0 (no activity) a>0.17 and a<=0.29 : A0-A1 (no activity) a>0.29 and a<=0.36 : A1 (minimal activity) a>0.36 and a<=0.52 : A1-A2 (minimal activity) a>0.52 and a<=0.60 : A2 (significant activity) a>0.60 and a<=0.62 : A2-A3 (significant activity) a>0.62 and a<=1.00 : A3 (severe activity) NAE-Dpdjz-4-Macroglobulin 320 106-279 mg/dL FIB-Haptoglobin 56 43-212 mg/dL FIB-Apolipoprotein A1 140 94-176 mg/dL FIB-Total Bilirubin 0.6 0.2-1.2 mg/dL FIB-GGT 20 3-85 U/L FIB-ALT 24 9-46 U/L Reference ID [id number] Footnote SEE NOTE The reliability of results is dependent on compliance with the preanalytical and analytical conditions recommended by [employer] The tests have to be deferred for: [...] The performance characteristics have been determined by [facility]. It has not been cleared or approved by the U.S. Food and Drug Administration. Performance characteristics refer to the analytical performance of the test. [employer], the associated logo, [employer] and all associated [employer] rehman are the registered trademarks of [employer]. All third green party rehman - (R) and (TM) - are the property of their respective owners. (C) 0280-4797 [employer]. All rights reserved. THIS TEST WAS PERFORMED AT: [employer] [address] [place] [address] RUFUS RAMIREZ MD,PHD,ZAHRA Reason For Referral No Information Medications Medication [...] 300 MG TAKE 3 CAPSULE BY MO UT EVERY MORNING AND 2 CAPSULE EVERY EVENING; [...] W/U Status Risk Notes Problem Epigastric pain (74730578) Epigastric pain (R10.13) Active confirmed Problem Screening for malignant neoplasm of colon (072141143) Encounter for screening for malignant neoplasm of colon (Z12.11) Active confirmed Problem History of adenomatous polyp of colon (433364378) History of adenomatous polyp of colon (Z86.010) Active confirmed Problem History of polyp of colon (situation) (597803271) Personal history of colonic polyps (Z86.010) Active confirmed Problem Diverticular disease of colon (666479955) Diverticulosis of large intestine without perforation or abscess without bleeding (K57.30) Active confirmed Problem Left upper quadrant pain (997959759) Left upper quadrant pain (R10.12) Active confirmed Problem Screening for malignant neoplasm of rectum (090728171) Encounter for screening for malignant neoplasm of rectum (Z12.12) Active confirmed Problem Elevated liver enzymes level (504667916) Elevated liver function tests (R79.89) Active confirmed Problem Fatty liver (470749327) Fatty liver (K76.0) Active confirmed Problem Iron excess (16507310) Iron excess (E83.19) Active confirmed Problem Rectal pain (44653157) Rectal pain (K62.89) Active confirmed Problem Hepatic fibrosis (disorder) (67494288) Liver fibrosis (K74.0) Active confirmed Problem FRIEDMAN - Nonalcoholic steatohepatitis (288097978) Steatohepatitis, nonalcoholic (K75.81) Active confirmed Problem Hepatic fibrosis (disorder) (11063888) Liver fibrosis (K74.00) Active confirmed Vital Signs Temperature 98.6 degrees Fahrenheit 09/03/2024 Blood pressure diastolic 01 mm Hg 09/03/2024 Height 67.50 in 09/03/2024 Blood pressure systolic 001 mm Hg 09/03/2024 Weight 177.2 lbs 09/03/2024 BMI 27.34 kg/m2 09/03/2024 Encounters Encounter Location Date Provider Diagnosis [facility] [address] [place] [address] 09/03/2024 Peterson Couch Fatty liver K76.0 ; Encounter for screening for malignant neoplasm of colon Z12.11 ; Elevated liver function tests R79.89 ; Liver fibrosis K74.00 and Personal history of colonic polyps Z86.010 [facility] [address] [place] [address] 04/03/2024 Peterson Couch [facility] [address] [place] [address] 09/04/2024 Peterson Couch [facility] [address] [place] [address] 11/17/2024 Peterson Couch Assessments Encounter Date Diagnosis [...] 01/11/2017 LIVER PROFILE 06/10/2014 CBC w DIFF 05/05/2021 CBC w DIFF 02/01/2023 CBC w DIFF 11/09/2015 CBC w DIFF 09/03/2024 CBC w DIFF 01/11/2017 PROTHROMBIN TIME (PT, INR) 11/24/2019 PROTHROMBIN TIME (PT, INR) 05/05/2021 PROTHROMBIN TIME (PT, INR) 11/09/2015 CLOSTRIDIUM DIFF TOXIN A&B (C DIFF) 12/27 STOOL WBC 01/22/2011 ALPHA-FETOPROTEIN,TUMOR MARKER 5 ALPHA-FETOPROTEIN,TUMOR MARKER 9 ALPHA-FETOPROTEIN,TUMOR MARKER 2 ALPHA-FETOPROTEIN,TUMOR MARKER 0 ALPHA-FETOPROTEIN,TUMOR MARKER 3 ALPHA-FETOPROTEIN,TUMOR MARKER 4 ALPHA-FETOPROTEIN,TUMOR MARKER 5 ALPHA-FETOPROTEIN,TUMOR MARKER 6 CULTURE, STOOL 01/22/2011 US ABD 11/24/2019 US LIVER BIOPSY CORE GUIDE 09/03/2024 Prothrombin Time INR 09/03/2024 Partial Thromboplastin Time 09/03/2024 Alpha Fetoprotein 05/05/2021 Liver Fibrosis Pnl 12/10/2024 Liver Fibrosis Pnl 09/03/2024 Liver Fibrosis Pnl 05/05/2021 US abdomen comp w elastography 3 US abdomen comp w elastography 3 US abdomen comp w elastography 5 Future Test Test Name Order Date COLONOSCOPY 11/09/2015 COLONOSCOPY 05/05/2021 Next Appt Details Provider Name:Peterson Salazar Couch , 03/09/2025 09:30:00 AM, [address], [address], [place], [address], Insurance Providers Payer Name Payer Address Payer Phone Subscriber Number Group Number Insured Name Patient Relationship to Insured Coverage Start Date Coverage End Date SMITH IVY/KRISTI Person MEDICARE [employer] MEDICARE [address] [address] [place] [address] [id number] [employer] Self - patient is the insured MEDICAID [facility] [address] [place] [address] [id number] MONY PAINTING Self - patient is the [...] significant abnormalities Sinusitis Denies DM,CVA,Lung disease,renal disease CAD-LA in [address]---diagnosed with intermittent A.fib--sees Dr. Simmons at [facility] Gout BPH Colonoscopy 02/2016--1 tubula r adenoma removed, neg. CT colonography that same day due to inability to reach the cecum Negative colonoscopy in 02/2022 Scheduled for cardiac cath on 02/13/[address] [facility] Surgical History Surgery Date(Month/Year) Right rotator cuff Laser prostate surgery August 03, 2015 Right elbow Appendectomy
--- OUTSIDE RECORDS SUMMARY | 2024-12-23 19:00 | XMS_ITS | Clinical Summary ---
Author Organization [facility] [employer] Address [address] [place] [address] Phone Care Team Providers Care Component Assembler Supervisor Name Role Phone Chasity Ellison MD Primary Care Provider [phone] Allergies Active Allergy Reactions Criticality Noted Date [...] seen on holter. Mar 2024 presentation to [facility], found to have AF with HR [...] hours); Future Coronary artery disease invo lving [place] coronary artery of [place] heart without angina pectoris 08/05/2020 Overview (04/03/2024): [...] Orders: ECG 12 lead Paroxysmal atrial fibrillation ([facility] V24, [facility] V28) 08/05/2020 Overview (04/03/2024): Last Assessment & [...] 12.5 mg orally daily. Patient has a YEW2SE8-SVGi score of 1. He continues on aspirin. [...] Insurance MEDICA[place] - [place] MEDICARE Care Teams Component Assembler Supervisor Relationship Specialty Start Date End Date Chasity Ellison MD [address] [place] [address] [address] [facility] [place] [address] PCP - General 01/07/12
== END 2024-12-23 17:25 | disposition home or self-care (01) ==
LOC: HO.HMCH 14:38
PROVIDERS: PCP Internal Medicine; Visit Provider Internal Medicine
DX: Z00.00 Encounter for general adult medical examination without abnormal findings (principal); I48.0 Paroxysmal atrial fibrillation; Z21 Asymptomatic human immunodeficiency virus [HIV] infection status; R33.9 Retention of urine, unspecified; I25.10 Atherosclerotic heart disease of native coronary artery without angina pectoris; E78.00 Pure hypercholesterolemia, unspecified

== ENCOUNTER → 2024-12-23 14:37 | Outpatient (BNVA) | payer MEDICARE, MEDICAID, SELFPAY | PROVIDERS: PCP Internal Medicine; Visit Provider Internal Medicine | DX: Z00.00 Encounter for general adult medical examination without abnormal findings (principal); I25.10 Atherosclerotic heart disease of native coronary artery without angina pectoris; I48.0 Paroxysmal atrial fibrillation; E78.00 Pure hypercholesterolemia, unspecified; R33.9 Retention of urine, unspecified; Z21 Asymptomatic human immunodeficiency virus [HIV] infection status; R05.3 Chronic cough; R39.15 Urgency of urination; K74.00 Hepatic fibrosis, unspecified | CPT/HCPCS: 99396 ==

== ENCOUNTER 2025-01-04 08:44 | Day surgery (SDC) | payer MEDICARE, MEDICAID, SELFPAY ==
--- OUTSIDE RECORDS SUMMARY | 2024-12-18 07:36 | XMS_ITS | Data Portability ---
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 Referral None recorded. Procedures None recorded. Surgeries None recorded. Imaging None recorded. Medication Orders clotrimaz ole-betam ethasone 1 %-0.05 % topical cream 2023 024 [id number], [address] [facility], [place], [place], [phone], 09/26/2023 13:20:17 Patient TargetsNo targets recorded. Patient [...] Organization Details Recorded Time Diffuse otitis externa 37197124 Active 2021 Diffuse otitis externa, unspecifi ed ear; Note: Date Diagnosed : 04/06/2021 10:27 AM (H60.319) Not Available [facility] 02:27:07 Impacted cerumen in right ear 78231596276 50797 Active 2021 Impacted cerumen, right ear; Note: Date Diagnosed : 01/02/2022 9:59 AM (H61.21) Not Available [facility] 02:27:11 Sensorine ural hearing loss of bilateral ears 212312392 Active 2021 Sensorine ural hearing loss, bilateral ; Note: Date Diagnosed : 01/02/2022 10:32 AM (H90.3) Not Available [facility] 02:27:15 Chronic eczema of external auditory canal 605236262 Active 2023 Fozia jones [place] - [facility] 4 13:19:44 Impacted cerumen of bilateral ears 84090670790 72402 Active 2024 Fozia jones [place] - [facility] [place] 5 11:28:50 Problem Notes None recorded. Procedures Surgical History Date Name Laterality Status Provider Name and Address Organization Details Recorded Time 5 Cerumen removal without microscope bilat completed Fozia Kline [place] - [facility] 05/12/2024 11:28:39 4 Air & Speech Audio with Tymps - 08669, 15137 & 29572 completed DRU TATUM [place], [facility]-[address], [address], [facility] - [facility] [place] 09/26/2023 13:54:19 Imaging Results None recorded. Procedure Notes None recorded. Medical Equipment None Reported. Allergies Allergen ID Allergen Name Allergen Category Reaction Reaction Severity Criticality Documentation Date Start Date Code Code System Note Provider Name and Address Organization Details Recorded Time 21767 Substance with sulfonami de structure and antibacte rial mechanism of action (substanc e) medicatio n other Not available Not available 07/09/2023 07090 8003 SNOMED React ion: other react ion, Unkno wn; Not Available [facility] 4 00:56:15 Medications Name Sig Start Date [...] small amount 04/10 completed Medicati on ID: [id number] D uration Value: 14 Prescri bed By [...] mg tablet 2021 active Medicati on ID: [id number] B rand Name: tramadol Send Method: E-Prescr [...] topical solution 04/10 completed Medicati on ID: [id number] P rescribe d By Name: Peterson dukes [...] a day 2021 active Medicati on ID: [id number] D uration Value: 30 Prescri bed By [...] a day 2021 active Medicati on ID: [id number] D uration Value: 30 Prescri bed By Name: Peterson dukes MD Brand Name: clotrima tri Kenney d Method: E-Prescr ibed Sub s Allowed: subs OK Speci al Instruct ion: ear canal Me dication GenericN tom: clotrima zole Not Available Not Available Not Available amoxicill in 875 mg-potass ium clavulana te 125 mg tablet 05/12 completed Medicati on ID: [id number] B rand Name: amoxicil gavi-pot clavulan ate [...] mg tablet 2021 active Medicati on ID: [id number] B rand Name: oxycodon e Send Method: E-Prescr ibed Sub s Allowed: subs OK Medic ationGen ericName : oxycodon e Not Available Not Available Not Available bupropion HCl SR 200 mg tablet,12 hr sustained -release TAKE 1 TABLET BY MOUTH EVERY EVENING active Not Available Not Available No t Available DermOtic Oil 0.01 % ear drops 2021 active Medicati on ID: [id number] D uration Value: 30 Brand Name: DermOtic [...] ,extended release 2021 active Medicati on ID: [id number] B rand Name: OxyConti n Send Method: E-Prescr ibed Sub s Allowed: subs OK Medic ationGen ericName : OxyConti n Not Available Not Available Not Available Genvoya 150 mg-150 mg-200 mg-10 mg tablet 2021 active Medicati on ID: [id number] B rand Name: Genvoya Send Method: E-Prescr [...] Updated DateTime 05/12/2024 167.64 cm 28.2 kg/m2 48453.66 g Radha Pacheco [place] - [facility] 05/12/2024 11:15:49 Date Recorded Body height Body mass index (BMI) Body weight Provider Name and Address Organization Details Last Updated DateTime 09/26/2023 167.64 cm 28.2 kg/m2 92352.66 g Travis Araujo [place] - [facility] 09/26/2023 13:09:44 Social History None recorded. Functional Status None recorded. Mental Status None recorded. Family History Nothing Reported. Medical History No medical history recorded. Past Encounters Encounter ID Performer Location Encounter Start Date Encounter Closed Date Diagnosis/Indication Diagnosis SNOMED-CT Code Diagnosis ICD10 Code Diagnosis IMO Codes Diagnosis Note [id number] FOZIA KLINE PA-C [facility] [address] [address] 09/26/2023 12:47:10 09/26/2023 14:22:55 Chronic eczema of external auditory canal 932357218 H60.8X9 Sensorineu ral hearing loss of bilateral ears 751827686 H90.3 Audiologic al evaluation results: Right ear: Normal thru 2000Hz sloping to a mild-moder ate SNHL with excellent word recognitio n. Left ear: Normal through 1500Hz sloing to a mild tp severe SNHL with excellent word recognitio n. Tympanomet ry: Right Ear:Type A Left Ear:Type Ad [id number] FOZIA KLINE PA-C [facility] [address] [address] 05/12/2024 11:09:23 05/12/2024 11:28:25 Impacted cerumen of bilateral ears 5529226188 596228 H61.23 Chronic ec zema of external auditory canal 310590360 H60.8X9 Health Concerns Section Related Observation LastModified by Organization Detai ls LastModified Time None Recorded Concern Status LastModified by Organization Details LastModified Time None Recorded Advance Directives Directive None Recorded Payers Insurance Date Sequence Insurance Name Policy Number Policy Lutz Covered Member ID Lutz Member ID Guarantor Name 04/08/2024 1 SMITH IVY - MEDICARE-[facility] LONG-TERM BOARD (MEDICARE) Kip Chapman [id number] Kip Chapman 11/08/2024 2 [place] [facility] Kip Chapman [id number] Kip Chapman 11/08/2024 1 SMITH A - MEDICARE-[address] LONG-TERM BOARD (MEDICARE) Kip Chapman [id number] Kip Chapman Notes Date Note Type Note [...] that worked very well. MISHEL BURR MD [address] [place] [address], [phone], [facility] 09/27/2023 09:16:25 05/12/2024 text/html ROS as [...] no otorrhea. No tinnitus. NATALYA ABREU MD [address] [place] [address],[address], [address], [facility] 05/12/2024 17:42:23
--- OUTSIDE RECORDS SUMMARY | 2024-12-18 07:36 | XMS_ITS | Clinical Summary ---
Author Organization [facility] Address [address] [place] [address] Phone Care Team Providers Care Civil Design Specialist Name Role Phone Chasity Ellison MD Primary Care Provider [phone] Allergies Active Allergy Reactions Criticality Noted Date [...] seen on holter. Mar 2024 presentation to [facility], found to have AF with HR [...] hours); Future Coronary artery disease invo lving nikolai coronary artery of nikolai heart without angina pectoris 08/05/2020 Overview (04/03/2024): [...] Orders: ECG 12 lead Paroxysmal atrial fibrillation ([facility] V24, [facility] /[facility] V28) 08/05/2020 Overview (04/03/2024): Last [...] 12.5 mg orally daily. Patient has a [id number] score of 1. He continues on aspirin. [...] Insurance MEDICA[place] - [place] MEDICARE Care Teams Civil Design Specialist Relationship Specialty Start Date End Date Chasity Ellison MD [address] [place] [address] [address] [facility] [place] [address] PCP - General 01/07/12
[2025-01-04] VITALS (13 sets, daily range): BP systolic 94–121; BP diastolic 54–76; PULSE 40–53; RESP 13–21; TEMP 36.7–37; O2SAT 94–98; BMI 27.4
--- NOTE | ~2025-01-04 | US_ITS ---
Examination: Ultrasound-guided liver biopsy. CLINICAL INDICATION: Liver fibrosis. COMPARISON: CT abdomen 03/30/2024 and ultrasound abdomen 05/08/2023. TECHNIQUE: Following explaining ultrasound-guided liver biopsy procedure, benefits and risk, a written consent was obtained. Patient was placed supine on ultrasound stretcher with right posterior chest elevated on blank is. Preliminary ultrasound imaging of right hepatic lobe was performed along the anterior and lateral approach. An optimal site was selected along the right lateral approach along the intercostal this space. The area was marked with a marker. The area marked was cleaned and draped in usual sterile manner. 1% local lidocaine was injected puncture site. Through a small skin incision a 20-gauge short guide needle was advanced from the marked site through a small skin incision into the right hepatic lobe under sterile ultrasound guidance. The stylet was removed and a biopsy gun was administered and it 3 pass core biopsy of liver was obtained. Post biopsy the guide needle was withdrawn and complete hemostasis achieved. Postbiopsy ultrasound images were obtained during or after the biopsy. Sterile dressing applied postprocedure at the skin site. Patient tolerated procedure extremely well. FINDINGS: On preliminary ultrasound imaging there is mild increased hepatic echogenicity. Ultrasound-guided 3 pass core biopsy of the right hepatic lobe was obtained. Patient with no evidence of complications. US/US biopsy liver IMPRESSION: Successful ultrasound-guided right hepatic lobe core biopsy was performed x3. Electronically signed by: Byron Mckeon MD 01/04/2025 02:21 PM [facility]
[2025-01-04 09:15] LABS: MANUAL DIFF FLAG NO
[2025-01-04 09:16] LABS: Hematocrit 54.2 % (42.0-52.0); Hemoglobin 18.6 g/dl (14.0-18.0); Imm Gran Abs Auto 0.04 X10*3/uL (0.00-0.03); Imm Gran Pct Auto 0.6 % (0.0-0.4); Lymphocytes Absolute Auto 2.2 X10*3/uL (1.2-4.9); Mean Corpuscular HGB Conc 34.3 g/dl (31.0-36.0); Mean Corpuscular Hemoglobin 32.7 pg (27.0-33.0); Mean Corpuscular Volume 95.4 fL (80.0-98.0); NRBC Abs Auto 0.000 X10*3/uL (0.0-0.012); NRBC Pct Auto 0.0 /100WBC (0.0-0.2); Platelet Count 164 X10*3/uL (160-400); Red Blood Count 5.68 X10*6/uL (4.60-5.80); White Blood Count 6.7 X10*3/uL (4.8-10.8)
[2025-01-04 09:25] LABS: INTERNATIONAL NORM RATIO 1.0 (0.9-1.1); Prothrombin Time 12.8 SEC (11.2-13.5)
[2025-01-04 09:31] LABS: Anion Gap 14 (12-20); Blood Urea Nitrogen 23 mg/dL (9-16); Calcium 10.0 mg/dL (8.4-10.2); Carbon Dioxide 27 mmol/L (22-29); Chloride 104 mmol/L (96-108); Estimated Glomerular Filt Rate 54; Potassium 4.9 mmol/L (3.3-5.1); Sodium 140 mmol/L (135-145)
[2025-01-04] MEDS: Lidocaine HCl 1 % MPF 5 ML VIAL SUBCUT (11:13)
== END 2025-01-04 13:08 | disposition home or self-care (01) ==
PROVIDERS: Radiology Diagnostic Radiology; PCP Internal Medicine; Visit Provider Internal Medicine
DX: R74.01 Elevation of levels of liver transaminase levels (principal); K74.00 Hepatic fibrosis, unspecified; K76.0 Fatty (change of) liver, not elsewhere classified; R79.89 Other specified abnormal findings of blood chemistry
CPT/HCPCS: 36415; 47000; 76942; 80048; 85025; 85610; 86850; 86900; 86901; 88307; 88313; 99153; J2003; J2250; J3010

== ENCOUNTER → 2025-01-04 10:30 | Outpatient (BNV) | payer MEDICARE, MEDICAID, SELFPAY | PROVIDERS: PCP Internal Medicine; Visit Provider Radiology Diagnostic Radiology | DX: K74.00 Hepatic fibrosis, unspecified (principal) | CPT/HCPCS: 47000; 76942 ==